=== PATIENT | female | born 1950 | race Caucasian/White ===

== ENCOUNTER 2023-11-15 06:04 | Inpatient (IN) ==
--- NOTE | 2023-11-08 11:39 | Anesthesiology Consultation ---
Date of Service November 08, 2023 Assessment & Plan Chart Review Chart Review: Acceptable Risk for Surgery and Patient NOT seen in Pre Admission Testing Consults Requested none History Surgery Operation Date: 11/15/23 10:35 Proposed Procedures p L3-S1 Decompression and Fusion - Jean-Pierre Mena DO Height/Weight Height: 5 ft 8 in Weight: 81.193 kg Allergies Allergy/AdvReac Type Severity Reaction Status Date / Time Iodinated Contrast Media Allergy Severe Rash Verified 10/26/23 12:15 codeine AdvReac Severe N/V Verified 10/26/23 12:16 tramadol AdvReac Intermediate n/v Verified 10/26/23 12:17 Medications Home Medications Medication Instructions Recorded Confirmed Last Taken acetazolamide 250 mg tablet 125 mg PO WK 10/26/23 10/26/23 Unknown albuterol sulfate 1.25 mg/3 mL 1.25 mg inhalation QID PRN sob 10/26/23 10/26/23 Unknown solution for nebulization albuterol sulfate 90 mcg/actuation 1 inh inhalation QID PRN sob 10/26/23 10/26/23 Unknown aerosol inhaler aspirin 81 mg capsule 81 mg PO QAM 10/26/23 10/26/23 Unknown bisoprolol fumarate 5 mg tablet 5 mg PO QAM 10/26/23 10/26/23 Unknown citalopram 20 mg tablet (Celexa) 20 mg PO QAM 10/26/23 10/26/23 Unknown estradiol 2 mg tablet 2 mg PO QAM 10/26/23 10/26/23 Unknown fenofibrate 160 mg tablet 160 mg PO QAM 10/26/23 10/26/23 Unknown fluticasone 250 mcg-salmeterol 50 1 inh inhalation BID PRN 10/26/23 10/26/23 Unknown mcg/dose blistr powdr for sob/wheezing inhalation (Advair Diskus) gabapentin 300 mg capsule 300 mg PO QAM 10/26/23 10/26/23 Unknown levothyroxine 75 mcg tablet 75 mcg PO QAM 10/26/23 10/26/23 Unknown (Synthroid) ondansetron HCl 8 mg tablet 8 mg PO Q12H PRN Nausea And 10/26/23 10/26/23 Unknown Vomiting potassium chloride 10 mEq 10 meq PO WK 10/26/23 10/26/23 Unknown tablet,extended release tramadol 50 mg tablet 50 mg PO DAILY PRN Severe Pain 10/26/23 10/26/23 Unknown (Scale Score 7-10) Past Medical History Medical History (Updated 10/26/23 @ 12:57 by Vinita Sullivan RN) Hx of motion sickness has used the scope patch to travel. History of postoperative nausea and vomiting History of cardiac arrhythmia follows with [facility] [place] Degenerative disc disease Chronic back pain Fatty liver Hypoglycemia "randomly" Depression Anxiety History of stroke 02/28/2002 -> no deficits. Seasonal allergies Asthma rarely uses, only uses when sick. Hypertriglyceridemia Hypertension Hypothyroidism History of lumbar puncture with blood patch and also surgical glue patches. 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 Past Family History Family History (Updated 10/26/23 @ 12:44 by Vinita Sullivan RN) Other No family history of adverse response to anesthesia Past Surgical History Surgical History H/O bilateral oophorectomy S/P DANIELLE (total abdominal hysterectomy) S/P left knee arthroscopy H/O lumbar discectomy History of colonoscopy History of appendectomy History of cataract surgery bilateral History of cardiac cath remote history (early ) - no stents Social History Smoking Status: Former smoker Do You Dip or Chew Tobacco: No Smoking End Date: at age 27 Hx Alcohol Use: Yes Alcohol type: wine and hard liquor alcohol intake frequency: holidays/special occasions only Hx Substance Use: No substance use type: does not use Testing Electrocardiogram Findings: + NSR @
[2023-11-15] MEDS ORDERED: GLYCOPYRROLATE 0.2 MG/ML VIAL ONE (06:55)
[2023-11-15] MEDS ORDERED: fentaNYL citrate PF 100 MCG/2 ML VIAL ONE ×2 (06:55→08:17)
[2023-11-15] MEDS ORDERED: LIDOCAINE 2% 2 ML VIAL/AMP(20MG/ML) INFIL ONE (06:55)
[2023-11-15] MEDS ORDERED: ROCURONIUM BROMIDE 10 MG/ML 5 ML VIAL IV ONE (06:55)
[2023-11-15] MEDS ORDERED: ONDANSETRON INJ 2 MG/ML 2 ML VIAL ONE (06:55)
[2023-11-15] MEDS ORDERED: PROPOFOL IV EMULSION 10 MG/ML 20 ML VIAL IV ONE (06:55)
[2023-11-15] MEDS ORDERED: DEXAMETHASONE SOD INJ 4 MG/ML VIAL ONE (06:55)
[2023-11-15] MEDS ORDERED: MIDAZOLAM HCL 1 MG/ML 2ML VIAL ONE (06:55)
[2023-11-15] MEDS ORDERED: SUGAMMADEX SODIUM 200 MG/2 ML VIAL IV ONE (06:59)
[2023-11-15] MEDS: LR 15ML/HR IV SCH (07:02)
[2023-11-15] MEDS: ACETAMINOPHEN 500 MG TAB PO SCH (07:02)
[2023-11-15] MEDS: CeleBREX 200 MG CAP PO SCH (07:02)
[2023-11-15] MEDS: GABAPENTIN 300 MG CAP PO SCH (07:02)
[2023-11-15] MEDS: LR 60ML/HR IV SCH (07:03)
[2023-11-15] MEDS ORDERED: ONDANSETRON INJ 2 MG/ML 2 ML VIAL IV PRN (07:20)
[2023-11-15] MEDS ORDERED: ePHEDrine sulfate 50 MG/ML AMP IV PRN (07:20)
[2023-11-15] MEDS ORDERED: ATROPINE SULFATE 0.1 MG/ML 10ML SYR IV PRN (07:20)
--- NOTE | 2023-11-15 07:36 | History & Physical Bridge Note ---
Date of Service November 15, 2023 History & Physical Bridge Note I have examined the patient, reviewed the History & Physical and in the interval since the performance of the History & Physical I have noted the following changes of clinical significance: no changes noted
--- NOTE | 2023-11-15 07:37 | History & Physical Report ---
Date of Service November 15, 2023 Assessment & Plan (1) Neurogenic claudication due to lumbar spinal stenosis: Plan: L3-S1 decompression and fusion History of Present Illness Chief Complaint: Back and bilateral leg pain Primary Care Provider: Devi Henry MD This is a 73-year-old female who presents chronic persistent back and bilaterally pain after failing since course of nonoperative care is here for surgical invention. Allergies Allergy/AdvReac Type Severity Reaction Status Date / Time Iodinated Contrast Media Allergy Severe Rash Verified 11/15/23 06:54 codeine AdvReac Severe N/V Verified 11/15/23 06:54 tramadol AdvReac Intermediate n/v Verified 11/15/23 06:54 Home Medications Medication Instructions Recorded Confirmed Type acetazolamide 250 mg tablet 125 mg PO WK 10/26/23 11/15/23 History albuterol sulfate 1.25 mg/3 mL 1.25 mg inhalation QID PRN sob 10/26/23 11/15/23 History solution for nebulization albuterol sulfate 90 mcg/actuation 1 inh inhalation QID PRN sob 10/26/23 11/15/23 History aerosol inhaler aspirin 81 mg capsule 81 mg PO QAM 10/26/23 11/15/23 History bisoprolol fumarate 5 mg tablet 5 mg PO QAM 10/26/23 10/26/23 History citalopram 20 mg tablet (Celexa) 20 mg PO QAM 10/26/23 10/26/23 History estradiol 2 mg tablet 2 mg PO QAM 10/26/23 11/15/23 History fenofibrate 160 mg tablet 160 mg PO QAM 10/26/23 11/15/23 History fluticasone 250 mcg-salmeterol 50 1 inh inhalation BID PRN 10/26/23 11/15/23 History mcg/dose blistr powdr for sob/wheezing inhalation (Advair Diskus) gabapentin 300 mg capsule 300 mg PO QAM 10/26/23 11/15/23 History levothyroxine 75 mcg tablet 75 mcg PO QAM 10/26/23 11/15/23 History (Synthroid) ondansetron HCl 8 mg tablet 8 mg PO Q12H PRN Nausea And 10/26/23 11/15/23 History Vomiting potassium chloride 10 mEq 10 meq PO WK 05/08/24 05/28/24 History tablet,extended release tramadol 50 mg tablet 50 mg PO DAILY PRN Severe Pain 10/26/23 11/15/23 History (Scale Score 7-10) Past Med/Surg History Problem List (Updated 11/15/23 @ 07:37 by Jean-Pierre Mena DO) Neurogenic claudication due to lumbar spinal stenosis Medical History (Updated 11/15/23 @ 07:37 by Jean-Pierre Mena DO) Hx of motion sickness has used the scope patch to travel. History of postoperative nausea and vomiting History of cardiac arrhythmia follows with [facility] [place] Degenerative disc disease Chronic back pain Fatty liver Hypoglycemia "randomly" Depression Anxiety History of stroke 02/28/2002 -> no deficits. Seasonal allergies Asthma rarely uses, only uses when sick. Hypertriglyceridemia Hypertension Hypothyroidism History of lumbar puncture with blood patch and also surgical glue patches. 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 Surgical History H/O bilateral oophorectomy S/P DANIELLE (total abdominal hysterectomy) S/P left knee arthroscopy H/O lumbar discectomy History of colonoscopy History of appendectomy History of cataract surgery bilateral History of cardiac cath remote history (early ) - no stents Family History (Updated 10/26/23 @ 12:44 by Vinita Sullivan RN) Other No family history of adverse response to anesthesia Social History Smoking Status: Former smoker Tobacco Type: Cigarettes Smoking End Date: at age 27; Second Hand Exposure: No; Do You Dip or Chew Tobacco: No; Tobacco Cessation Education Requested by Patient: No Hx Alcohol Use: Yes Alcohol type: wine and hard liquor Hx Substance Use: No Preferred Language: Peruvian Communication Ability: Effective Senior It Project Manager Required: No Beliefs That Will Affect Care: None Current Living Situation: Spouse Other Information That Helps Us Care for You: No Feels Safe at Home: Yes Safety Concerns: Feels Safe At This Time Assistive Devices: Denture - Upper, Denture - Lower, Nebulizer and Walker Physical Exam Physical Exam: Patient is alert and oriented heart regular rhythm Lungs clear Results & Data Results & Data Vital Signs (Past 12 Hours) Vital Signs Temp Pulse Resp BP Pulse Ox O2 Del Method 11/15/23 06:45 36.3 C L 66 18 119/70 95 Room Air
[2023-11-15] MEDS: ceFAZolin 2000MG 2,000 MG/15 ML SYR IV SCH ×2 (07:45→17:28)
[2023-11-15] MEDS: BUPIVACAINE/EPINEPHRINE 0.25% 1:200,000 30 ML VIAL ONE (08:29)
[2023-11-15] MEDS ORDERED: PHENYLEPHRINE 100MCG/ML 10ML SYR IV ONE (08:42)
[2023-11-15] MEDS: ceFAZolin 330 MG/ML 1 GM VIAL ONE (10:06)
--- NOTE | 2023-11-15 10:16 | Operative Report ---
Post Operative Report Pre & Post Diagnosis Operation Date: 11/15/23 07:45 Pre-Op Diagnosis: Neurogenic claudication due to lumbar spinal stenosis Post-Op Diagnosis: Neurogenic claudication due to lumbar spinal stenosis I identified the patient and participated in the time-out.: Yes Procedure Operation Date: 11/15/23 07:45 Actual Procedures #1 revision decompression with bilateral medial facetectomies and foraminotomies L3-L4, L4-5 and L5-S1. #2 posterior spinal fusion L3-S1. #3 placed posterior segmental instrumentation L3-S1. #4 interbody fusion L3-L4, L4-L5 and L5-S1. #5 placement of Spira 11 x 26 mm at L3-L4, 9 x 26 mm at L4-L5 and 12 x 26 mm x 2 at L5-S1. #6 placement locally harvested morselized autograft posterior gutters. #7 placement infuse collagen sponge, with Koros bone graft in the posterior lateral gutters and Morpheus bone graft interbody spaces. Surgeon Jean-Pierre Mena, DO Parimutuel Ticket Seller Malissa Antonio Estimated Blood Loss 300 Findings Consistent with Post-Op Diagnosis Specimens None Indications This is a 73-year-old female presents problems diagnosis of failed course of nonoperative care is here for surgical invention. Description of Procedure Patient was met with identified informed consent obtained. Patient was then taken to the operative suite underwent patient placed in prone position on the Pasha table on top of the Layton frame. All bony prominences well-padded eyes inspected to ensure no external precipice spinal. This point lumbar spine was prepped and draped in a sterile fashion. Sharp dissection with the assistance of Bovie cautery is performed down to and exposing the remaining lamina transverse processes of L3 L4-5 and the sacral ala bilaterally. From caudal cephalad fashion revision complete laminectomy of L5 was performed including bilateral medial facetectomies and foraminotomies. Then a revision complete laminectomy of L4 including bilateral male facetectomies and foraminotomies performed and lastly complete laminectomy of L3 including bilateral medial facetectomies and foraminotomies addressing severe spinal stenosis was performed. Pedicle screws were then placed at L3 L4-5 and S1 levels bilaterally with assistance of fluoroscopy in the process richard placed. By way of a transforaminal approach on the right and discectomy of L5-S1 was performed endplates guarded to subcortical bleeding bone and a 12 x 26 mm spiral cage filled with Morpheus bone graft tapped in position. Then proceeded to the left transforaminal region at L5-S1 again discectomy performed endplates guarded to subcortical bleeding bone and a second 12 x 26 mm spiral cage filled with Morpheus bone graft tapped in position. Then proceeded L4-L5 by way of transforaminal approach on the right a complete discectomy performed endplates guided to subcortical bleeding bone and a 9 x 26 mm spiral cage filled with Morpheus bone graft tapped in position. Lastly approached L3-L4. By way of transforaminal approach and right complete discectomy performed endplates guided to subcortical bleeding bone and 11 x 26 mm spiral cage filled with Morpheus bone graft tapped in position. The rods were then compressed locked into final position bilaterally. The transverse processes of L3 L4-5 and sacral ala burred to subcortical bleeding bone. Infuse collagen sponge, with Koros and local autograft placed in posterior gutters. 15 round DARRYL inserted. The incision was then closed with 1 Vicryl to fascia 2-0 Vicryl subcutaneously and 4 Monocryl for final skin closure. Steri-Strips are dressing placed. Patient awakened taken to PACU stable condition. Please note spinal cord monitoring was utilized at the procedure no changes noted. Lastly Malissa Antonio was present at the entire procedure and all the patient positioning complex portion of the surgery and final skin closure. I attest to the content of the Intraoperative Record and any orders documented therein. Any exceptions are noted below.
[2023-11-15] MEDS ORDERED: DROPERIDOL 5 MG/2 ML VIAL ONE (10:35)
--- NOTE | 2023-11-15 10:39 | Fluoroscopy Report ---
INTRAOPERATIVE RADIOGRAPHS CLINICAL HISTORY: L3-S1 spinal fusion. Fluoro time: 35 seconds Ka,r: 29.88 mGy FINDINGS: 3 spot fluoroscopic views of the lumbar spine are presented. There has been discectomy at L 3-L4, L4-L5, and L5-S1 with laminectomy and posterior fusion at L3-S1. Interpedicular screws are pres ent at all levels. The orthopedic hardware appears intact. IMPRESSION: Intraoperative images from lumbar spinal fusion surgery as above. Electronically signed by: Jaycob Wright M.D. 11/15/2023 10:37 AM
[2023-11-15] MEDS: fentaNYL citrate PF 100 MCG/2 ML VIAL IV PRN (10:50)
[2023-11-15] MEDS ORDERED: hydrOXYzine HCl 25 MG TAB PO PRN (11:44)
[2023-11-15] MEDS ORDERED: ALUMINUM/MAGNESIUM SUSP 30 ML UDC PO PRN (11:44)
[2023-11-15] MEDS ORDERED: SOD PHOSPHATE/SOD BIPHOSPHATE ENEMA 132 ML BTL PR PRN (11:44)
[2023-11-15] MEDS ORDERED: ONDANSETRON 4 MG OD TAB PO PRN (11:44)
[2023-11-15] MEDS ORDERED: ACETAMINOPHEN 1,000 MG/100 ML VIAL IV PRN (11:44)
[2023-11-15] MEDS ORDERED: DO NOT ADMINISTER PNEUMOCOCCAL VACCINE PRN (11:44)
[2023-11-15] MEDS ORDERED: PROMETHAZINE HCL 12.5 MG in SODIUM CHLORIDE 0.9% 50 ML IV PRN (11:44)
[2023-11-15] MEDS ORDERED: ALBUTEROL HFA 8 GM INHALER INH PRN (11:44)
[2023-11-15] MEDS ORDERED: DO NOT ADMINISTER FLU VACCINE PRN (11:44)
[2023-11-15] MEDS ORDERED: LORazepam 0.5 MG in SYRINGE 0.25 ML IV PRN (11:44)
[2023-11-15] MEDS ORDERED: METOCLOPRAMIDE HCL INJ 5 MG/ML 2 ML VIAL IV PRN (11:44)
[2023-11-15] MEDS ORDERED: diphenhydrAMINE Capsule 25 MG CAP PO PRN (11:44)
[2023-11-15] MEDS ORDERED: NALOXONE HCL 0.4 MG/1 ML VIAL/CARP IV PRN (11:44)
[2023-11-15] MEDS ORDERED: bisacodyL 10 MG SUPP PR PRN (11:44)
[2023-11-15] MEDS ORDERED: FAMOTIDINE 20 MG TAB PO PRN (11:44)
--- NOTE | 2023-11-15 11:44 | Anesthesiology Progress Note ---
Date of Service November 15, 2023 Anesthesia Post Procedure Vital Signs Vital Signs: Temp Pulse Pulse Resp BP Pulse Ox O2 Del Method 11/15/23 11:20 66 14 115/63 93 Oxymask 11/15/23 11:10 36.6 C 72 12 123/54 L 94 Oxymask 11/15/23 11:00 72 17 117/76 92 Oxymask 11/15/23 10:50 74 15 125/70 96 Oxymask 11/15/23 10:40 67 19 102/51 L 94 Oxymask 11/15/23 10:31 36.0 C L 60 12 100/56 L 95 Oxymask 11/15/23 06:45 36.3 C L 66 18 119/70 95 Room Air O2 Flow Rate 11/15/23 11:20 2 11/15/23 11:10 2 11/15/23 11:00 2 11/15/23 10:50 8 11/15/23 10:40 8 11/15/23 10:31 8 11/15/23 06:45 Pain Intensity Right Buttock: Pain Intensity: 4 Transfer of Care Handoff Completed per policy Notes Mental Status: alert / awake / arousable and participated in evaluation Patient Amnestic to Procedure: Yes Nausea / Vomiting: adequately controlled Pain: adequately controlled Airway Patency, RR, SpO2: stable & adequate BP & HR: stable & adequate Hydration State: stable & adequate Anesthetic Complications: no major complications apparent and Pt Satisfied with anesthetic care
[2023-11-15] MEDS ORDERED: ALBUTEROL 0.083% NEBU SOLN 3 ML VIAL INH PRN (11:51)
[2023-11-15] MEDS ORDERED: FLUTICASONE/VILANTEROL 200/25MCG 14 PUFFS/INHALER INH PRN (12:09)
[2023-11-15] MEDS: HYDROmorphone INJ 0.5 MG/0.5 ML SYR IV PRN (12:23)
[2023-11-15] MEDS: SODIUM CHLORIDE 0.9% 1,000 ML IV SCH (12:58)
[2023-11-15] MEDS: FLOSEAL HEMOSTATIC MATRIX 10ML TOP ONE (14:09)
--- NOTE | 2023-11-15 15:35 | Consultation ---
Date of Consultation November 15, 2023 Assessment & Plan (1) Neurogenic claudication due to lumbar spinal stenosis: (2) History of stroke: (3) Hypertension: (4) Hypothyroidism: (5) Depression: Plan Ms. Vick is a 73 year old female that underwent an elective L3-S1 decompression and fusion surgery under the care of Dr. Mena after failed conservative treatment for back pain as an outpatient. Additional PMH includes: H/O CVA, fatty liver disease, HTN, hypothyroidism, and depression. Additionally patient has diagnosis of spontaneous CFS leaking diagnosed 2012. She has reportedly had 13 leaks that has received blood patch. She takes Diamox and potassium for this. Postoperatively she is slightly hypotensive SBP 96/59, asymptomatic. She does have IV fluids infusing. She does seem to become hypotensive after she receives pain medication. Preop labs from 11/07/2023 indicated baseline hemoglobin 13.2. Pt denies SOTELO, visual or auditory changes, N/V/D, abdominal pain or tenderness, chest pain, palpitations, dysuria, Recent falls or trauma. She is AAO x 4 and able to follow all commands. She denies any neuropathy or numbness tingling in lower extremities. She is able to wiggle both of her lower extremity. She has not passed flatulence as of yet. Neurogenic claudication due to lumbar spinal stenosis: POD#0 s/p L3-S1 decompression and fusion surgery under the care of Dr. Mena. Per ortho for pain control, wound care, anticoagulation and activities. 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 Hold per protocol BP soft post op: 96/59; appears to be low after pain medication administration Hypothyroidism: Chronic Takes levothyroxine;continue Depression: Chronic Takes Celexa;continue Disposition: PCP: Fernando Buckner Code Status: Full code VTE Prophylaxis: Teds and SCDs for now per admitting team I spent a total of 62 minutes coordinating, documenting, and providing care for this patient excluding time spent in the performance of separately billed services. All of the aforementioned completed while collaborating with the assigned attending physician for a full treatment plan. Please see their addendum for further details. Supervising Physician Co-Signing Physician Notes Pt was seen and examined by myself, Brynn Stephens MD on the day of service. Care was coordinated with HIEN Olea. 73yo seen postop after lumbar decompression and fusion surgery. Medical Hx significant for spontaneous CSF leaks, notes this has not happened for many years. BP hypotensive, pt asymptomatic. in no acute distress on exam, RRR Continue to monitor post op hgb. Otherwise as above. I spent a total [id number] coordinating, documenting, and providing care for this patient excluding time spent in the performance of separately billed services History of Present Illness Requesting Physician: Dr. Mena Reason for Consultation: post operative medical management Attending Physician: Jean-Pierre Mena DO History of Present Illness Ms. Vick is a 73 year old female that underwent an elective L3-S1 decompression and fusion surgery under the care of Dr. Mena after failed conservative treatment for back pain as an outpatient. Additional PMH includes: H/O CVA, fatty liver disease, HTN, hypothyroidism, and depression. Additionally patient has diagnosis of spontaneous CFS leaking diagnosed 2012. She has reportedly had 13 leaks that has received blood patch. She takes Diamox and potassium for this. Postoperatively she is slightly hypotensive SBP 96/59, asymptomatic. She does have IV fluids infusing. She does seem to become hypotensive after she receives pain medication. Preop labs from 11/07/2023 indicated baseline hemoglobin 13.2. Pt denies SOTELO, visual or auditory changes, N/V/D, abdominal pain or tenderness, chest pain, palpitations, dysuria, Recent falls or trauma. She is AAO x 4 and able to follow all commands. She denies any neuropathy or numbness tingling in lower extremities. She is able to wiggle both of her lower extremity. She has not passed flatulence as of yet. [facility] Hospitalist service was consulted for postoperative medical management. We are available 10/01 for any concerns or questions; please reach us on [place] Text. Allergies Allergy/AdvReac Type Severity Reaction Status Date / Time Iodinated Contrast Media Allergy Severe Rash Verified 11/15/23 06:54 codeine AdvReac Severe N/V Verified 11/15/23 06:54 tramadol AdvReac Intermediate n/v Verified 11/15/23 06:54 Home Medications Medication Instructions Recorded Confirmed Type acetazolamide 250 mg tablet 125 mg PO WK 10/26/23 11/15/23 History albuterol sulfate 1.25 mg/3 mL 1.25 mg inhalation QID PRN sob 10/26/23 11/15/23 History solution for nebulization albuterol sulfate 90 mcg/actuation 1 inh inhalation QID PRN sob 10/26/23 11/15/23 History aerosol inhaler aspirin 81 mg capsule 81 mg PO QAM 10/26/23 11/15/23 History bisoprolol fumarate 5 mg tablet 5 mg PO QAM 10/26/23 10/26/23 History citalopram 20 mg tablet (Celexa) 20 mg PO QAM 10/26/23 10/26/23 History estradiol 2 mg tablet 2 mg PO QAM 10/26/23 11/15/23 History fenofibrate 160 mg tablet 160 mg PO QAM 10/26/23 11/15/23 History fluticasone 250 mcg-salmeterol 50 1 inh inhalation BID PRN 10/26/23 11/15/23 History mcg/dose blistr powdr for sob/wheezing inhalation (Advair Diskus) gabapentin 300 mg capsule 300 mg PO QAM 10/26/23 11/15/23 History levothyroxine 75 mcg tablet 75 mcg PO QAM 10/26/23 11/15/23 History (Synthroid) ondansetron HCl 8 mg tablet 8 mg PO Q12H PRN Nausea And 10/26/23 11/15/23 History Vomiting potassium chloride 10 mEq 10 meq PO WK 10/26/23 11/15/23 History tablet,extended release tramadol 50 mg tablet 50 mg PO DAILY PRN Severe Pain 10/26/23 11/15/23 History (Scale Score 7-10) Patient History Medical History Hx of motion sickness has used the scope patch to travel. History of postoperative nausea and vomiting History of cardiac arrhythmia follows with [facility] [place] Degenerative disc disease Chronic back pain Fatty liver Hypoglycemia "randomly" Depression Anxiety History of stroke 02/28/2002 -> no deficits. Seasonal allergies Asthma rarely uses, only uses when sick. Hypertriglyceridemia Hypertension Hypothyroidism History of lumbar puncture with blood patch and also surgical glue patches. Spontaneous cerebrospinal fluid leak from spine dx 2013 - treated at [facility] in [place] "treats me like a stroke when it happens" no problems since the blood patch/ leaks have been patched with surgical glue. Surgical History H/O bilateral oophorectomy S/P DANIELLE (total abdominal hysterectomy) S/P left knee arthroscopy H/O lumbar discectomy History of colonoscopy History of appendectomy History of cataract surgery bilateral History of cardiac cath remote history (early ) - no stents Family History Other No family history of adverse response to anesthesia Social History Smoking Status: Former smoker Tobacco Type: Cigarettes Smoking End Date: at age 27; Second Hand Exposure: No; Do You Dip or Chew Tobacco: No; Tobacco Cessation Education Requested by Patient: No Hx Alcohol Use: Yes Alcohol type: wine and hard liquor Hx Substance Use: No Preferred Language: Venezuelan Communication Ability: Effective Chief Resource Officer Required: No Beliefs That Will Affect Care: None Current Living Situation: Spouse Other Information That Helps Us Care for You: No Feels Safe at Home: Yes Safety Concerns: Feels Safe At This Time Assistive Devices: Denture - Upper, Denture - Lower, Nebulizer and Walker Review of Systems Review of Systems: Neuro: (-) Falls, trauma, slurred speech HEENT: (-) SOTELO, dizziness, dysphagia, visual or auditory changes CV: (-) CP, palpitations, swelling Resp: (-) SOB GI: (-) appetite changes, N/V/D, bowel changes : (-) urinary changes Skin: (-) rashes Psych: (-) anxiety, depression Physical Exam Physical Exam: Neuro: AAOx4, PERRLA, no aphagia, memory changes, CNII-XII grossly intact HEENT: head normocephalic, moist mucus membranes CV: S1/S2, (-) M/G/R, (-) edema, cap refill < 3 seconds Resp: Lungs CTA in all monteiro. On RA GI: Abdomen S/NT/ND, Ax4 bowel sounds, (-) CVA tenderness Musculoskeletal: 5/5 B/L UE strength, 5/5 B/L LE strength. No gait disturbance Skin: (-) rashes , (-) erythema. Psych: euthymic mood Results & Data Vital Signs (Past 12 Hours) Vital Signs Temp Pulse Pulse Resp BP BP Pulse Ox 11/15/23 14:18 36.4 C L 72 16 96/59 L 93 11/15/23 13:30 36.3 C L 73 16 94/60 L 93 11/15/23 12:37 36.5 C 73 16 94/58 L 93 11/15/23 12:02 11/15/23 12:00 36.3 C L 71 16 112/71 94 11/15/23 11:30 36.5 C 69 16 102/67 94 11/15/23 11:20 66 14 115/63 93 11/15/23 11:10 36.6 C 72 12 123/54 L 94 11/15/23 11:00 72 17 117/76 92 11/15/23 10:50 74 15 125/70 96 11/15/23 10:40 67 19 102/51 L 94 11/15/23 10:31 36.0 C L 60 12 100/56 L 95 11/15/23 06:45 36.3 C L 66 18 119/70 95 O2 Del Method O2 Flow Rate 11/15/23 14:18 Nasal Cannula 2 11/15/23 13:30 Nasal Cannula 2.0 11/15/23 12:37 Nasal Cannula 2.0 11/15/23 12:02 Nasal Cannula 2 11/15/23 12:00 Nasal Cannula 2.0 11/15/23 11:30 Nasal Cannula 2.0 11/15/23 11:20 Oxymask 2 11/15/23 11:10 Oxymask 2 11/15/23 11:00 Oxymask 2 11/15/23 10:50 Oxymask 8 11/15/23 10:40 Oxymask 8 11/15/23 10:31 Oxymask 8 11/15/23 06:45 Room Air Diagnostic Findings Lumbar Spine X-Ray 11/15/23 07:00 INTRAOPERATIVE RADIOGRAPHS CLINICAL HISTORY: L3-S1 spinal fusion. Fluoro time: 35 seconds Ka,r: 29.88 mGy FINDINGS: 3 spot fluoroscopic views of the lumbar spine are presented. There has been discectomy at L3-L4, L4-L5, and L5-S1 with laminectomy and posterior fusion at L3-S1. Interpedicular screws are present at all levels. The orthopedic hardware appears intact. IMPRESSION: Intraoperative images from lumbar spinal fusion surgery as above. Electronically signed by: Jaycob Wright M.D. 11/15/2023 10:37 AM
[2023-11-15 20:18] LABS: Hematocrit (blood only) 33.5 % (37.0-47.0); Hemoglobin 10.8 g/dl (12.0-16.0); Mean Corpuscular Hgb Conc 32.2 g/dL (32.0-36.0); Mean Corpuscular Volume 99.4 fL (80.0-100.0); Mean Platelet Volume 10.7 fL (9.4-12.4); Platelet Count 267 K/uL (130-400); RDW Coefficient of Variation 12.6 % (11.5-14.5); RDW Standard Deviation 45.9 fL (36.4-46.3); Red Blood Count 3.37 M/uL (4.20-5.40); White Blood Count 14.81 K/ul (4.8-10.8)
[2023-11-15] MEDS: DOCUSATE SODIUM/SENNA 50/8.6MG TAB PO SCH (21:08)
[2023-11-15] MEDS: ACETAMINOPHEN 500 MG TAB PO PRN (21:12)
[2023-11-16] MEDS: KETOROLAC TROMETHAMINE 15 MG/ML VIAL IV ONE (01:41)
[2023-11-16] MEDS: POLYETHYLENE (MIRALAX) 17 GM PACK PO SCH (06:01)
[2023-11-16 06:28] LABS: Basophils # (auto) 0.02 K/uL (0.00-0.20); Basophils % (auto) 0.1 %; Hematocrit (blood only) 31.7 % (37.0-47.0); Hemoglobin 10.3 g/dl (12.0-16.0); Immature Granulocytes # (auto) 0.09 K/uL (0.01-0.20); Immature Granulocytes % (auto) 0.6 %; Lymphocytes # (auto) 3.33 K/uL (1.20-3.40); Lymphocytes % (auto) 21.1 %; Mean Corpuscular Hemoglobin 32.6 pg (25.0-34.0); Mean Corpuscular Hgb Conc 32.5 g/dL (32.0-36.0); Mean Corpuscular Volume 100.3 fL (80.0-100.0); Mean Platelet Volume 10.8 fL (9.4-12.4); Monocytes # (auto) 1.66 K/uL (0.11-0.59); Monocytes % (auto) 10.5 %; Neutrophils # (auto) 10.65 K/uL (1.40-6.50); Neutrophils % (auto) 67.7 %; Platelet Count 263 K/uL (130-400); RDW Coefficient of Variation 12.5 % (11.5-14.5); RDW Standard Deviation 46.1 fL (36.4-46.3); Red Blood Count 3.16 M/uL (4.20-5.40); White Blood Count 15.75 K/ul (4.8-10.8)
[2023-11-16 06:41] LABS: BUN Creatinine Ratio 15.1 (10-20); Calcium 8.3 mg/dl (8.6-10.3); Creatinine Clr Calc Pharmacy 47.8 ml/min; Est GFR (African American) 53.2 ml/min; Est GFR (Non-African American) 45.9 ml/min; Potassium 4.4 mmol/L (3.5-5.1)
[2023-11-16] MEDS: CITALOPRAM 20 MG TAB PO SCH (08:02)
[2023-11-16] MEDS: LEVOTHYROXINE SODIUM 75 MCG TABLET PO SCH (08:02)
[2023-11-16] MEDS: GABAPENTIN 300 MG CAP PO SCH (08:03)
[2023-11-16] MEDS: ASPIRIN 81 MG ECTAB PO SCH (08:03)
[2023-11-16] MEDS: estradioL 1 MG TAB PO SCH (08:03)
[2023-11-16] MEDS: FENOFIBRATE NANOCRYSTALLIZED 145 MG TABLET PO SCH (08:04)
[2023-11-16] MEDS: dexAMETHasone 6 MG in SYRINGE 0 ML IV SCH (08:05)
[2023-11-16] MEDS: BISOPROLOL FUMARATE 5 MG TAB PO SCH (08:06)
--- NOTE | 2023-11-16 09:53 | Orthopedic Progress Note ---
Date of Service November 16, 2023 Assessment & Plan (1) Neurogenic claudication due to lumbar spinal stenosis: Plan: This time we will continue physical therapy monitor DARRYL operatively discharged home in the next few days. Admission and Anticipated Discharge Date Admission Date: November 15, 2023 Subjective Back pain controlled leg pain markedly improved Physical Exam Physical Exam: Patient is up and ambulating halls. She is comfortable. Is present to testing. Results & Data Vital Signs (Past 12 Hours) Vital Signs Temp Pulse Resp BP BP Pulse Ox O2 Del Method 11/16/23 09:44 98/59 L 11/16/23 07:20 36.6 C 73 16 94/51 L 93 Room Air 11/16/23 03:30 36.4 C L 73 18 95/55 L 93 Room Air 11/15/23 23:45 36.5 C 78 18 98/52 L 94 Room Air
[2023-11-16] MEDS: oxyCODONE HCL IR 5 MG TAB (IMMEDIATE RELEASE) PO PRN (10:57)
--- NOTE | 2023-11-16 19:04 | Hospitalist Progress Note ---
Date of Service November 16, 2023 Assessment & Plan (1) Neurogenic claudication due to lumbar spinal stenosis: (2) History of stroke: (3) Hypertension: (4) Hypothyroidism: (5) Depression: Plan Ms. Vick is a 73 year old female that underwent an elective L3-S1 decompression and fusion surgery under the care of Dr. Mena after failed conservative treatment for back pain as an outpatient. Additional PMH includes: H/O CVA, fatty liver disease, HTN, hypothyroidism, and depression. Additionally patient has diagnosis of spontaneous CFS leaking diagnosed 2012. She has reportedly had 13 leaks that has received blood patch. She takes Diamox and potassium for this. Postoperatively she is slightly hypotensive SBP 96/59, asymptomatic. She does have IV fluids infusing. She does seem to become hypotensive after she receives pain medication. Preop labs from 11/07/2023 indicated baseline hemoglobin 13.2. Pt denies SOTELO, visual or auditory changes, N/V/D, abdominal pain or tenderness, chest pain, palpitations, dysuria, Recent falls or trauma. She is AAO x 4 and ab le to follow all commands. She denies any neuropathy or numbness tingling in lower extremities. She is able to wiggle both of her lower extremity. She has not passed flatulence as of yet. Neurogenic claudication due to lumbar spinal stenosis: POD#1 s/p L3-S1 decompression and fusion surgery under the care of Dr. Mena. Per ortho for pain control, wound care, anticoagulation and activities. 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 Hold per protocol BP soft post op: 96/59; appears to be low after pain medication administration Hypothyroidism: Chronic Takes levothyroxine;continue Depression: Chronic Takes Celexa;continue Disposition: PCP: Fernando Buckner Code Status: Full code VTE Prophylaxis: Teds and SCDs for now per admitting team Admission and Anticipated Discharge Date Admission Date: November 15, 2023 Subjective Back pain controlled rt leg pain markedly improved. eating ok, no bm. Physical Exam Physical Exam: Neuro: AAOx4, PERRLA, no aphagia, memory changes, CNII-XII grossly intact HEENT: head normocephalic, moist mucus membranes CV: S1/S2, (-) M/G/R, (-) edema, cap refill < 3 seconds Resp: Lungs CTA in all monteiro. On RA GI: Abdomen S/NT/ND, Ax4 bowel sounds, (-) CVA tenderness Musculoskeletal: 5/5 B/L UE strength, 5/5 B/L LE strength. No gait disturbance Skin: (-) rashes , (-) erythema. Psych: euthymic mood Low back with clean dressing without soakage. DARRYL drain with moderate serosanguineous collection noted. Results & Data Results & Data Vital Signs (Past 12 Hours) Vital Signs Temp Pulse Resp BP BP Pulse Ox O2 Del Method 11/16/23 15:05 36.8 C 71 16 95/58 L 93 Room Air 11/16/23 09:44 98/59 L 11/16/23 07:20 36.6 C 73 16 94/51 L 93 Room Air
[2023-11-17 06:53] LABS: Hematocrit (blood only) 29.8 % (37.0-47.0); Hemoglobin 9.7 g/dl (12.0-16.0); Mean Corpuscular Hemoglobin 32.1 pg (25.0-34.0); Mean Corpuscular Hgb Conc 32.6 g/dL (32.0-36.0); Mean Corpuscular Volume 98.7 fL (80.0-100.0); Mean Platelet Volume 10.8 fL (9.4-12.4); Platelet Count 244 K/uL (130-400); RDW Coefficient of Variation 13.1 % (11.5-14.5); RDW Standard Deviation 46.9 fL (36.4-46.3); Red Blood Count 3.02 M/uL (4.20-5.40); White Blood Count 13.57 K/ul (4.8-10.8)
--- NOTE | 2023-11-17 10:07 | Orthopedic Progress Note ---
Date of Service November 17, 2023 Assessment & Plan (1) Neurogenic claudication due to lumbar spinal stenosis: Plan: At this time we will continue physical therapy monitor DARRYL output anticipate discharge to home versus rehab in the next day or so. Admission and Anticipated Discharge Date Admission Date: November 15, 2023 Subjective Back pain is controlled leg symptoms improved. Struggling with some nausea this morning. Physical Exam Physical Exam: Patient is currently bed. She does appear comfortable. She is constricted testing. Results & Data Vital Signs (Past 12 Hours) Vital Signs Temp Pulse Resp BP Pulse Ox O2 Del Method 11/17/23 07:27 36.7 C 72 16 108/64 93 Room Air
--- NOTE | 2023-11-17 15:02 | Hospitalist Progress Note ---
Date of Service November 17, 2023 Assessment & Plan (1) Neurogenic claudication due to lumbar spinal stenosis: (2) History of stroke: (3) Hypertension: (4) Hypothyroidism: (5) Depression: Plan Ms. Vick is a 73 year old female that underwent an elective L3-S1 decompression and fusion surgery under the care of Dr. Mena after failed conservative treatment for back pain as an outpatient. Additional PMH includes: H/O CVA, fatty liver disease, HTN, hypothyroidism, and depression. Additionally patient has diagnosis of spontaneous CFS leaking diagnosed 2012. She has reportedly had 13 leaks that has received blood patch. She takes Diamox and potassium for this. Postoperatively she is slightly hypotensive SBP 96/59, asymptomatic. She does have IV fluids infusing. She does seem to become hypotensive after she receives pain medication. Preop labs from 11/07/2023 indicated baseline hemoglobin 13.2. Pt denies SOTELO, visual or auditory changes, N/V/D, abdominal pain or tenderness, chest pain, palpitations, dysuria, Recent falls or trauma. She is AAO x 4 and ab le to follow all commands. She denies any neuropathy or numbness tingling in lower extremities. She is able to wiggle both of her lower extremity. She has not passed flatulence as of yet. Neurogenic claudication due to lumbar spinal stenosis: POD#2 s/p L3-S1 decompression and fusion surgery under the care of Dr. Mena. Per ortho for pain control, wound care, anticoagulation and activities. 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 Hold per protocol BP soft post op: 96/59; appears to be low after pain medication administration Hypothyroidism: Chronic Takes levothyroxine;continue Depression: Chronic Takes Celexa;continue Disposition: PCP: Fernando Buckner Code Status: Full code VTE Prophylaxis: Teds and SCDs for now per admitting team Admission and Anticipated Discharge Date Admission Date: November 15, 2023 Subjective Back pain controlled rt leg pain markedly improved. eating ok, no bm. MOving gas. Hypotensive overnight, likely from anesthesia, should improve as anestheisa wears off. no fever. reports improving dizziness. Physical Exam Physical Exam: Neuro: AAOx4, PERRLA, no aphagia, memory changes, CNII-XII grossly intact HEENT: head normocephalic, moist mucus membranes CV: S1/S2, (-) M/G/R, (-) edema, cap refill < 3 seconds Resp: Lungs CTA in all monteiro. On RA GI: Abdomen S/NT/ND, Ax4 bowel sounds, (-) CVA tenderness Musculoskeletal: 5/5 B/L UE strength, 5/5 B/L LE strength. No gait disturbance Skin: (-) rashes , (-) erythema. Psych: euthymic mood Low back with clean dressing without soakage. DARRYL drain with moderate serosanguineous collection noted. Results & Data Results & Data Vital Signs (Past 12 Hours) Vital Signs Temp Pulse Resp BP Pulse Ox O2 Del Method 11/17/23 14:39 36.6 C 68 16 127/66 94 Room Air 11/17/23 07:27 36.7 C 72 16 108/64 93 Room Air
[2023-11-18 07:22] LABS: Hematocrit (blood only) 31.5 % (37.0-47.0); Hemoglobin 10.2 g/dl (12.0-16.0); Mean Corpuscular Hemoglobin 32.1 pg (25.0-34.0); Mean Corpuscular Hgb Conc 32.4 g/dL (32.0-36.0); Mean Corpuscular Volume 99.1 fL (80.0-100.0); Mean Platelet Volume 10.6 fL (9.4-12.4); Platelet Count 237 K/uL (130-400); RDW Coefficient of Variation 12.6 % (11.5-14.5); RDW Standard Deviation 45.7 fL (36.4-46.3); Red Blood Count 3.18 M/uL (4.20-5.40); White Blood Count 13.11 K/ul (4.8-10.8)
[2023-11-18 07:59] LABS: BUN Creatinine Ratio 22.7 (10-20); Calcium 8.9 mg/dl (8.6-10.3); Creatinine Clr Calc Pharmacy 64.6 ml/min; Est GFR (African American) 76.6 ml/min; Est GFR (Non-African American) 66.1 ml/min; Potassium 4.8 mmol/L (3.5-5.1)
--- NOTE | 2023-11-18 10:26 | Orthopedic Progress Note ---
Date of Service November 18, 2023 Assessment & Plan (1) Neurogenic claudication due to lumbar spinal stenosis: Plan: This time continue with therapy as tolerated. We will plan for discharge tomorrow pending her orthostatic hypotension. Admission and Anticipated Discharge Date Admission Date: November 15, 2023 Subjective Patient's back pain is controlled leg pain improved. She is struggling with orthostatic hypotension. Otherwise is progressing nicely. Physical Exam Physical Exam: On exam patient is currently in bed. She is comfortable. Is good strength testing. Results & Data Vital Signs (Past 12 Hours) Vital Signs Temp Pulse Resp BP Pulse Ox O2 Del Method 11/18/23 08:15 Room Air 11/18/23 07:50 36.7 C 61 14 136/74 94 Room Air
[2023-11-18] MEDS: LINACLOTIDE 145 MCG CAPSULE PO PRN (14:02)
--- NOTE | 2023-11-18 16:58 | Hospitalist Progress Note ---
Date of Service November 18, 2023 Assessment & Plan (1) Neurogenic claudication due to lumbar spinal stenosis: (2) History of stroke: (3) Hypertension: (4) Hypothyroidism: (5) Depression: Plan Ms. Vick is a 73 year old female that underwent an elective L3-S1 decompression and fusion surgery under the care of Dr. Mena after failed conservative treatment for back pain as an outpatient. Additional PMH includes: H/O CVA, fatty liver disease, HTN, hypothyroidism, and depression. Additionally patient has diagnosis of spontaneous CFS leaking diagnosed 2012. She has reportedly had 13 leaks that has received blood patch. She takes Diamox and potassium for this. Postoperatively she is slightly hypotensive SBP 96/59, asymptomatic. She does have IV fluids infusing. She does seem to become hypotensive after she receives pain medication. Preop labs from 11/07/2023 indicated baseline hemoglobin 13.2. Pt denies SOTELO, visual or auditory changes, N/V/D, abdominal pain or tenderness, chest pain, palpitations, dysuria, Recent falls or trauma. She is AAO x 4 and ab le to follow all commands. She denies any neuropathy or numbness tingling in lower extremities. She is able to wiggle both of her lower extremity. She has not passed flatulence as of yet. Neurogenic claudication due to lumbar spinal stenosis: POD#3 s/p L3-S1 decompression and fusion surgery under the care of Dr. Mena. Per ortho for pain control, wound care, anticoagulation and activities. 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 Hold per protocol BP soft post op: 96/59; appears to be low after pain medication administration Hypothyroidism: Chronic Takes levothyroxine;continue Depression: Chronic Takes Celexa;continue Disposition: PCP: Fernando Buckner Code Status: Full code VTE Prophylaxis: Teds and SCDs for now per admitting team Admission and Anticipated Discharge Date Admission Date: November 15, 2023 Subjective Back pain controlled rt leg pain markedly improved. eating ok, no bm. MOving gas. Reports improving dizziness, but had some orthostatic hypotension persisting, will continue to follow-up. Patient advised for slow transition between change in position. no fever. reports improving dizziness. Physical Exam Physical Exam: Neuro: AAOx4, PERRLA, no aphagia, memory changes, CNII-XII grossly intact HEENT: head normocephalic, moist mucus membranes CV: S1/S2, (-) M/G/R, (-) edema, cap refill < 3 seconds Resp: Lungs CTA in all monteiro. On RA GI: Abdomen S/NT/ND, Ax4 bowel sounds, (-) CVA tenderness Musculoskeletal: 5/5 B/L UE strength, 5/5 B/L LE strength. No gait disturbance Skin: (-) rashes , (-) erythema. Psych: euthymic mood Low back with clean dressing without soakage. Results & Data Results & Data Vital Signs (Past 12 Hours) Vital Signs Temp Pulse Pulse Resp BP BP Pulse Ox 11/18/23 15:37 36.7 C 63 16 121/66 94 11/18/23 13:17 36.5 C 65 15 136/87 92 11/18/23 08:15 11/18/23 07:50 36.7 C 61 14 136/74 94 O2 Del Method 11/18/23 15:37 Room Air 11/18/23 13:17 Room Air 11/18/23 08:15 Room Air 11/18/23 07:50 Room Air
[2023-11-19] MEDS: LORazepam 0.5 MG TAB PO PRN (06:38)
[2023-11-19 07:30] LABS: Hematocrit (blood only) 30.7 % (37.0-47.0); Hemoglobin 10.2 g/dl (12.0-16.0); Mean Corpuscular Hemoglobin 31.6 pg (25.0-34.0); Mean Corpuscular Hgb Conc 33.2 g/dL (32.0-36.0); Mean Platelet Volume 10.8 fL (9.4-12.4); Nucleated RBC # (auto) 0.02 K/uL (0.00-0.12); Nucleated RBC % (auto) 0.2 %; Platelet Count 259 K/uL (130-400); RDW Coefficient of Variation 12.4 % (11.5-14.5); RDW Standard Deviation 43.1 fL (36.4-46.3); Red Blood Count 3.23 M/uL (4.20-5.40); White Blood Count 12.73 K/ul (4.8-10.8)
[2023-11-19 08:57] LABS: Calcium 8.7 mg/dl (8.6-10.3); Potassium 4.1 mmol/L (3.5-5.1)
[2023-11-19 09:02] LABS: BUN Creatinine Ratio 23.8 (10-20); Creatinine Clr Calc Pharmacy 71.1 ml/min; Est GFR (Non-African American) 74.2 ml/min
[2023-11-19] MEDS: traMADol HCL 50 MG TABLET PO PRN (10:19)
--- NOTE | 2023-11-19 10:21 | Orthopedic Progress Note ---
Date of Service November 19, 2023 Assessment & Plan (1) Neurogenic claudication due to lumbar spinal stenosis: Plan: At this time she has new onset spasms and perhaps radicular pain in the right anterior thigh. This could be related to adjacent level neural compression. We will continue with pain management and like to obtain an MRI lumbar spine with attention to adjacent levels. Admission and Anticipated Discharge Date Admission Date: November 15, 2023 Subjective Patient began experiencing severe right groin pain with radiation down the a nterior thigh. It is spasmodic in nature. It is related to motion. She states this started when she sat up this morning and began ambulating. This is a new pain pattern. She has not experienced this in the past. Her previous sciatica symptoms are resolved. Physical Exam Physical Exam: On exam patient is quite uncomfortable. She has difficulty lying in a supine position. Logroll is equivocal. Sensory is intact. She is strength testing to the lower extremities. Results & Data Vital Signs (Past 12 Hours) Vital Signs Temp Pulse Resp BP Pulse Ox O2 Del Method 11/19/23 08:28 36.3 C L 64 15 130/76 97 Room Air 11/19/23 07:00 Room Air 11/18/23 23:17 36.6 C 66 16 130/71 95 Room Air
[2023-11-19] MEDS: diazePAM 5 MG TABLET PO PRN (12:10)
[2023-11-19] MEDS: HYDROmorphone INJ 1 MG/ML SYRINGE IV PRN (13:37)
--- NOTE | 2023-11-19 16:55 | Hospitalist Progress Note ---
Date of Service November 19, 2023 Assessment & Plan (1) Neurogenic claudication due to lumbar spinal stenosis: (2) History of stroke: (3) Hypertension: (4) Hypothyroidism: (5) Depression: Plan Ms. Vick is a 73 year old female that underwent an elective L3-S1 decompression and fusion surgery under the care of Dr. Mena after failed conservative treatment for back pain as an outpatient. Additional PMH includes: H/O CVA, fatty liver disease, HTN, hypothyroidism, and depression. Additionally patient has diagnosis of spontaneous CFS leaking diagnosed 2012. She has reportedly had 13 leaks that has received blood patch. She takes Diamox and potassium for this. Postoperatively she is slightly hypotensive SBP 96/59, asymptomatic. She does have IV fluids infusing. She does seem to become hypotensive after she receives pain medication. Preop labs from 11/07/2023 indicated baseline hemoglobin 13.2. Pt denies SOTELO, visual or auditory changes, N/V/D, abdominal pain or tenderness, chest pain, palpitations, dysuria, Recent falls or trauma. She is AAO x 4 and ab le to follow all commands. She denies any neuropathy or numbness tingling in lower extremities. She is able to wiggle both of her lower extremity. She has not passed flatulence as of yet. Neurogenic claudication due to lumbar spinal stenosis: POD#4 s/p L3-S1 decompression and fusion surgery under the care of Dr. Mena. Per ortho for pain control, wound care, anticoagulation and activities. 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 Hold per protocol BP soft post op: 96/59; appears to be low after pain medication administration Hypothyroidism: Chronic Takes levothyroxine;continue Depression: Chronic Takes Celexa;continue Disposition: PCP: Fernando Buckner Code Status: Full code VTE Prophylaxis: Teds and SCDs for now per admitting team Admission and Anticipated Discharge Date Admission Date: November 15, 2023 Subjective Back pain controlled. eating ok, no bm. MOving gas. Reports improving dizziness, but had new RLE radicular pain started in the morning while trying to stand up. MRI has been sent, f/u. no fever. Physical Exam Physical Exam: Neuro: AAOx4, PERRLA, no aphagia, memory changes, CNII-XII grossly intact HEENT: head normocephalic, moist mucus membranes CV: S1/S2, (-) M/G/R, (-) edema, cap refill < 3 seconds Resp: Lungs CTA in all monteiro. On RA GI: Abdomen S/NT/ND, Ax4 bowel sounds, (-) CVA tenderness Musculoskeletal: 5/5 B/L UE strength, 5/5 B/L LE strength. No gait disturbance Skin: (-) rashes , (-) erythema. Psych: euthymic mood Low back with clean dressing without soakage. Results & Data Results & Data Vital Signs (Past 12 Hours) Vital Signs Temp Pulse Resp BP Pulse Ox O2 Del Method 11/19/23 08:28 36.3 C L 64 15 130/76 97 Room Air 11/19/23 07:00 Room Air
--- NOTE | 2023-11-19 17:15 | Magnetic Resonance Report ---
LUMBAR SPINE MRI HISTORY: right leg pain TECHNIQUE: Multiplanar multisequence MRI of the lumbar spine was performed without the use of contras t. COMPARISON: None. FINDINGS: For the purpose of the report the L5-S1 disc space will be located on axial image 32 of 40. There is straightening of the lumbar spine. The patient is status post recent posterior decompression and fusion from L3 through S1 with pedicle screws and rods. Disc spacers at these locations appear i n good position. No fracture or subluxation. The visualized sacrum is intact. Midline incision within the lower back with a small amount of subcutaneous fluid suggesting a postoperative seroma. Paraspin al soft tissue edema is also likely secondary to the recent postoperative change. The conus terminate s at the L1-L2 disc space level. There is a 9.1 x 3.9 x 7.4 cm fluid collection at the laminectomy si adam with a few thin septations inferiorly. This results in mass effect along the posterior thecal sac with severe predominantly right-sided central canal narrowing at the L3 and L4 levels. This favors a postoperative seroma. A pseudomeningocele also remains in the differential diagnosis. L1-L2: No significant central canal or neural foraminal narrowing. L2-L3: No significant central canal or neural foraminal narrowing. L3-L4: Severe central canal narrowing secondary to mass effect from the fluid collection at the erendira ectomy site. This fluid collection is predominantly along the right side of the thecal sac and result s in left deviation and mass effect of the cauda equina at this level. This is best seen on axial eliana ge 19. No significant neural foraminal narrowing. L4-L5: Severe central canal narrowing secondary to mass effect from the fluid collection at the erendira ectomy site along the posterior thecal sac. The central canal demonstrates an AP diameter of 3 mm. Th is is best seen on axial image 26. No significant neural foraminal narrowing. L5-S1: Mild to moderate central canal narrowing due to the mass effect from the fluid collection at t he laminectomy site. The thecal sac on axial image 38 measures 8 mm. No significant left-sided neural foraminal narrowing. There is a small focus of gas within the right neural foramen without significa nt neural foraminal narrowing. IMPRESSION: 1. Status post recent posterior decompression and fusion from L3 through S1 with pedicle screws and r ods. 2. There is a 9.1 x 3.9 x 7.4 cm fluid collection at the laminectomy sites with a few thin septations inferiorly. This results in mass effect along the posterior thecal sac with severe predominantly rig ht-sided central canal narrowing at the L3 and L4 levels as described above. This favors a postoperat yovana seroma. A pseudomeningocele also remains in the differential diagnosis. 3. No fracture or subluxation within the lumbar spine. ACT 112: Negative or not required by law. Electronically signed by: Randy Mclain M.D. 11/19/2023 5:12 PM
[2023-11-19] MEDS: CYCLOBENZAPRINE HCL 5 MG TAB PO PRN (19:49)
--- NOTE | 2023-11-20 10:50 | Orthopedic Progress Note ---
Date of Service November 20, 2023 Assessment & Plan (1) Neurogenic claudication due to lumbar spinal stenosis: Plan: MRI of the lumbar spine demonstrates evidence of significant seroma with collection in the cephalad component of the dissection. I am strongly suspect this is the etiology of her right leg symptoms. I explained this to the patient. Will make her n.p.o. after midnight plan for I&D lumbar spine tomorrow morning. Admission and Anticipated Discharge Date Admission Date: November 15, 2023 Subjective Patient continues to have right leg pain with activity. Pain is controlled with Dilaudid. Physical Exam Physical Exam: On exam she is neurologically intact. She is uncomfortable with motion. Results & Data Vital Signs (Past 12 Hours) Vital Signs Temp Pulse Resp BP Pulse Ox O2 Del Method O2 Flow Rate 11/20/23 07:34 36.9 C 73 16 145/76 H 95 Nasal Cannula 2 11/20/23 07:00 Nasal Cannula 2
--- NOTE | 2023-11-20 15:04 | Hospitalist Progress Note ---
Date of Service November 20, 2023 Assessment & Plan (1) Neurogenic claudication due to lumbar spinal stenosis: (2) History of stroke: (3) Hypertension: (4) Hypothyroidism: (5) Depression: Plan Ms. Vick is a 73 year old female that underwent an elective L3-S1 decompression and fusion surgery under the care of Dr. Mena after failed conservative treatment for back pain as an outpatient. Additional PMH includes: H/O CVA, fatty liver disease, HTN, hypothyroidism, and depression. Additionally patient has diagnosis of spontaneous CFS leaking diagnosed 2012. She has reportedly had 13 leaks that has received blood patch. She takes Diamox and potassium for this. Postoperatively she is slightly hypotensive SBP 96/59, asymptomatic. She does have IV fluids infusing. She does seem to become hypotensive after she receives pain medication. Preop labs from 11/07/2023 indicated baseline hemoglobin 13.2. Pt denies SOTELO, visual or auditory changes, N/V/D, abdominal pain or tenderness, chest pain, palpitations, dysuria, Recent falls or trauma. She is AAO x 4 and ab le to follow all commands. She denies any neuropathy or numbness tingling in lower extremities. She is able to wiggle both of her lower extremity. She has not passed flatulence as of yet. Neurogenic claudication due to lumbar spinal stenosis: POD#5 s/p L3-S1 decompression and fusion surgery under the care of Dr. Mena. Per ortho for pain control, wound care, anticoagulation and activities. Monitor H&H, preop Hgb 13.2; will trend in AM Continue incentive spirometry. PT/OT when appropriate Had new RLE pain 11/18 --> MR L spine w/ significant seroma collection, likely reason for new radicular symptoms --> for IandD 11/20 by orthospine. 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 Hold per protocol BP soft post op: 96/59; appears to be low after pain medication administration Hypothyroidism: Chronic Takes levothyroxine;continue Depression: Chronic Takes Celexa;continue Disposition: PCP: Fernando Buckner Code Status: Full code VTE Prophylaxis: Teds and SCDs for now per admitting team Admission and Anticipated Discharge Date Admission Date: November 15, 2023 Subjective Back pain controlled. eating ok, no bm. MOving gas. Reports improving dizziness, but had new RLE radicular pain started in yesterday morning while trying to stand up which continues. no fever. NPO midnight, I and D of seroma patricia. Physical Exam Physical Exam: Neuro: AAOx4, PERRLA, no aphagia, memory changes, CNII-XII grossly intact HEENT: head normocephalic, moist mucus membranes CV: S1/S2, (-) M/G/R, (-) edema, cap refill < 3 seconds Resp: Lungs CTA in all monteiro. On RA GI: Abdomen S/NT/ND, Ax4 bowel sounds, (-) CVA tenderness Musculoskeletal: 5/5 B/L UE strength, 5/5 B/L LE strength. No gait disturbance Skin: (-) rashes , (-) erythema. Psych: euthymic mood Low back with clean dressing without soakage. Results & Data Results & Data Vital Signs (Past 12 Hours) Vital Signs Temp Pulse Resp BP Pulse Ox O2 Del Method O2 Flow Rate 11/20/23 07:34 36.9 C 73 16 145/76 H 95 Nasal Cannula 2 11/20/23 07:00 Nasal Cannula 2
--- NOTE | 2023-11-20 16:35 | Anesthesiology Consultation ---
Date of Service November 20, 2023 Assessment & Plan Chart Review Chart Review: Acceptable Risk for Surgery and Patient NOT seen in Pre Admission Testing Consults Requested none ASA ASA2 Proposed Anesthesia Anesthesia Type: General History Surgery Operation Date: 11/15/23 07:45 Proposed Procedures p L3-S1 Decompression and Fusion Spinal Cord Monitoring - Jean-Pierre Mena DO Height/Weight Height: 5 ft 8 in Weight: 78.7 kg Allergies Allergy/AdvReac Type Severity Reaction Status Date / Time Iodinated Contrast Media Allergy Severe Rash Verified 11/15/23 06:54 codeine AdvReac Severe N/V Verified 11/15/23 06:54 tramadol AdvReac Intermediate n/v Verified 11/15/23 06:54 Medications Home Medications Medication Instructions Recorded Confirmed Last Taken acetazolamide 250 mg tablet 125 mg PO WK 10/26/23 11/15/23 11/13/23 22:00 albuterol sulfate 1.25 mg/3 mL 1.25 mg inhalation QID PRN sob 10/26/23 11/15/23 Unknown solution for nebulization albuterol sulfate 90 mcg/actuation 1 inh inhalation QID PRN sob 10/26/23 11/15/23 Unknown aerosol inhaler aspirin 81 mg capsule 81 mg PO QAM 10/26/23 11/15/23 Unknown bisoprolol fumarate 5 mg tablet 5 mg PO QAM 10/26/23 10/26/23 11/15/23 05:00 citalopram 20 mg tablet (Celexa) 20 mg PO QAM 10/26/23 10/26/23 11/15/23 05:00 estradiol 2 mg tablet 2 mg PO QAM 10/26/23 11/15/23 11/14/23 09:00 fenofibrate 160 mg tablet 160 mg PO QAM 10/26/23 11/15/23 11/14/23 09:00 fluticasone 250 mcg-salmeterol 50 1 inh inhalation BID PRN 10/26/23 11/15/23 Unknown mcg/dose blistr powdr for sob/wheezing inhalation (Advair Diskus) gabapentin 300 mg capsule 300 mg PO QAM 10/26/23 11/15/23 Unknown levothyroxine 75 mcg tablet 75 mcg PO QAM 10/26/23 11/15/23 11/14/23 09:00 (Synthroid) ondansetron HCl 8 mg tablet 8 mg PO Q12H PRN Nausea And 10/26/23 11/15/23 Unknown Vomiting potassium chloride 10 mEq 10 meq PO WK 10/26/23 11/15/23 Unknown tablet,extended release tramadol 50 mg tablet 50 mg PO DAILY PRN Severe Pain 10/26/23 11/15/23 Unknown (Scale Score 7-10) oxycodone 5 mg tablet 5 mg PO Q6H PRN pain #30 tabs 11/16/23 Unknown tramadol 50 mg tablet 50 mg PO Q6H PRN pain, moderate 11/16/23 Unknown #30 tabs Active Medications Generic Name Dose Route Start Last Admin Trade Name Freq PRN Reason Stop Dose Admin Acetaminophen 1,000 mg 11/15/23 11:44 11/19/23 00:35 Acetaminophen 500 Mg Tab PO 12/15/23 11:43 1,000 mg Q8H PRN Administration MILD Pain Scale 1,2,3 & Pre PT Aspirin 81 mg 11/16/23 09:00 11/20/23 08:14 Aspirin 81 Mg Ectab PO 12/16/23 08:59 81 mg QAM CORI Administration Bisoprolol Fumarate 5 mg 11/16/23 09:00 11/16/23 08:06 Bisoprolol Fumarate 5 Mg Tab PO 12/16/23 08:59 Not Given QAM CORI Citalopram Hydrobromide 20 mg 11/16/23 09:00 11/20/23 08:14 Citalopram 20 Mg Tab PO 12/16/23 08:59 20 mg QAM CORI Administration Cyclobenzaprine HCl 5 mg 11/19/23 08:11 11/20/23 08:14 Cyclobenzaprine Hcl 5 Mg Tab PO 12/19/23 08:59 5 mg BID PRN Administration spasms, pain Diazepam 5 mg 11/19/23 10:18 11/20/23 02:11 Diazepam 5 Mg Tablet PO 12/19/23 10:17 5 mg BID PRN Administration Muscle Spasm Estradiol 2 mg 11/16/23 09:00 11/20/23 08:14 Estradiol 1 Mg Tab PO 12/16/23 08:59 2 mg QAM CORI Administration Fenofibrate 145 mg 11/16/23 09:00 11/20/23 08:14 Fenofibrate Nanocrystallized 145 Mg Tablet PO 12/16/23 08:59 145 mg QAM CORI Administration Gabapentin 300 mg 11/16/23 09:00 11/20/23 08:14 Gabapentin 300 Mg Cap PO 12/16/23 08:59 300 mg QAM CORI Administration Hydromorphone HCl 0.5 mg 11/15/23 11:44 11/15/23 17:29 Hydromorphone Inj 0.5 Mg/0.5 Ml Syr IV 11/29/23 11:43 0.5 mg Q3H PRN Administration MODERATE Pain (Scale 4,5,6) & Pre PT Hydromorphone HCl 1 mg 11/15/23 11:44 11/20/23 12:10 Hydromorphone Inj 1 Mg/Ml Syringe IV 11/29/23 11:43 1 mg Q3H PRN Administration SEVERE Pain (Scale 7,8,9,10) Levothyroxine Sodium 75 mcg 11/16/23 09:00 11/20/23 08:14 Levothyroxine Sodium 75 Mcg Tablet PO 12/16/23 08:59 75 mcg QAM CORI Administration Linaclotide 145 mcg 11/18/23 13:13 11/20/23 08:16 Linaclotide 145 Mcg Capsule PO 12/18/23 13:14 145 mcg DAILY PRN Administration constipation Lorazepam 0.5 mg 11/15/23 11:44 11/19/23 06:38 Lorazepam 0.5 Mg Tab PO 12/15/23 11:43 0.5 mg Q8H PRN Administration Sedation/Anxiety Oxycodone HCl 5 - 10 mg 11/15/23 11:44 11/20/23 05:57 Oxycodone Hcl Ir 5 Mg Tab (Immediate Release) PO 11/29/23 11:43 10 mg Q4H PRN Administration Pain & Pre PT Polyethylene Glycol 17 gm 11/16/23 06:00 11/20/23 13:27 Polyethylene (Miralax) 17 Gm Pack PO 12/16/23 05:59 Not Given Q6 CORI Senna/Docusate Sodium 2 tab 11/15/23 21:00 11/19/23 20:04 Docusate Sodium/Senna 50/8.6mg Tab PO 12/15/23 20:59 Not Given HS CORI Tramadol HCl 50 - 100 mg 11/15/23 11:44 11/19/23 10:19 Tramadol Hcl 50 Mg Tablet PO 12/15/23 11:43 100 mg Q4H PRN Administration Moderate-Severe pain & Pre PT NPO Last Intake of Fluids Comment: sups with medications Past Medical History Medical History Hx of motion sickness has used the scope patch to travel. History of postoperative nausea and vomiting History of cardiac arrhythmia follows with [facility] Degenerative disc disease Chronic back pain Fatty liver Hypoglycemia "randomly" Anxiety Seasonal allergies Asthma rarely uses, only uses when sick. Hypertriglyceridemia History of lumbar puncture with blood patch and also surgical glue patches. Spontaneous cerebrospinal fluid leak from spine dx 2013 - treated at [facility] in [place] "treats me like a stroke when it happens" no problems since the blood patch/leaks have been patched with surgical glue. Exercise / Class Metabolic Activity II 4-5 Yardwork/Stairs/Walk up hill Past Family History Family History Other No family history of adverse response to anesthesia Past Surgical History Surgical History H/O bilateral oophorectomy S/P DANIELLE (total abdominal hysterectomy) S/P left knee arthroscopy H/O lumbar discectomy History of colonoscopy History of appendectomy History of cataract surgery bilateral History of cardiac cath remote history (early ) - no stents Past Anesthesia History No Hx of Anesthesia Complications and No Family Hx of Anesthesia Complications History of PONV No Hx of PONV and No Hx of Motion Sickness Social History Smoking Status: Former smoker Do You Dip or Chew Tobacco: No Smoking End Date: at age 27 Hx Alcohol Use: Yes Alcohol type: wine and hard liquor alcohol intake frequency: holidays/special occasions only Hx Substance Use: No substance use type: does not use Physical Exam Vital Signs Last Vital Signs Temp 36.6 C 11/20/23 15:24 Pulse 76 11/20/23 15:24 Resp 16 11/20/23 15:24 BP 100/62 11/20/23 15:24 Pulse Ox 95 11/20/23 15:24 O2 Del Method Nasal Cannula 11/20/23 15:24 O2 Flow Rate 1.5 06/02/24 15:24 Testing Laboratory Results 11/19/23 06:49 11/19/23 06:49 Blood Type O Negative 11/15/23 06:28 Antibody Screen NEGATIVE 11/15/23 06:28 Electrocardiogram Date: 11/07/23 Findings: + NSR @ (@ 68;IRBBB;LAD) Chest X-Ray Date: 11/07/23 Findings: + NAD
[2023-11-21 06:59] LABS: Hematocrit (blood only) 29.9 % (37.0-47.0); Hemoglobin 9.9 g/dl (12.0-16.0); Mean Corpuscular Hemoglobin 32.2 pg (25.0-34.0); Mean Corpuscular Hgb Conc 33.1 g/dL (32.0-36.0); Mean Corpuscular Volume 97.4 fL (80.0-100.0); Mean Platelet Volume 10.4 fL (9.4-12.4); Platelet Count 279 K/uL (130-400); RDW Coefficient of Variation 12.4 % (11.5-14.5); RDW Standard Deviation 44.1 fL (36.4-46.3); Red Blood Count 3.07 M/uL (4.20-5.40)
[2023-11-21 07:35] LABS: BUN Creatinine Ratio 24.4 (10-20); Calcium 8.5 mg/dl (8.6-10.3); Creatinine Clr Calc Pharmacy 69.4 ml/min; Est GFR (African American) 83.4 ml/min; Potassium 3.9 mmol/L (3.5-5.1)
[2023-11-21] MEDS: LACTATED RINGER'S 1,000 ML IV SCH (09:39)
[2023-11-21] MEDS ORDERED: ePHEDrine sulfate 50 MG/ML AMP IV PRN (10:02)
[2023-11-21] MEDS ORDERED: fentaNYL citrate PF 100 MCG/2 ML VIAL IV PRN (10:02)
[2023-11-21] MEDS ORDERED: DROPERIDOL 5 MG/2 ML VIAL IV PRN (10:02)
[2023-11-21] MEDS ORDERED: ATROPINE SULFATE 0.1 MG/ML 10ML SYR IV PRN (10:02)
[2023-11-21] MEDS ORDERED: fentaNYL citrate PF 100 MCG/2 ML VIAL ONE (10:08)
[2023-11-21] MEDS ORDERED: NEOSTIGMINE METHYLSULFATE 1 MG/ML 10ML VIAL ONE (10:08)
[2023-11-21] MEDS ORDERED: ROCURONIUM BROMIDE 10 MG/ML 5 ML VIAL IV ONE (10:08)
[2023-11-21] MEDS ORDERED: MIDAZOLAM HCL 1 MG/ML 2ML VIAL ONE (10:08)
[2023-11-21] MEDS ORDERED: LIDOCAINE 2% 2 ML VIAL/AMP(20MG/ML) INFIL ONE (10:08)
[2023-11-21] MEDS ORDERED: GLYCOPYRROLATE 0.2 MG/ML VIAL ONE (10:08)
[2023-11-21] MEDS ORDERED: PROPOFOL IV EMULSION 10 MG/ML 20 ML VIAL IV ONE (10:08)
[2023-11-21] MEDS ORDERED: DEXAMETHASONE SOD INJ 4 MG/ML VIAL ONE (10:08)
[2023-11-21] MEDS ORDERED: ONDANSETRON INJ 2 MG/ML 2 ML VIAL ONE (10:08)
--- NOTE | 2023-11-21 10:20 | History & Physical Bridge Note ---
Date of Service November 21, 2023 History & Physical Bridge Note I have examined the patient, reviewed the History & Physical and in the interval since the performance of the History & Physical I have noted the following changes of clinical significance: no changes noted Irrigation debridement lumbar spine
[2023-11-21] MEDS: ceFAZolin 2,000 MG/15 ML IV PUSH IV ONE (10:58)
[2023-11-21] MEDS: ceFAZolin 2000MG 2,000 MG/15 ML SYR IV ONE (10:58)
[2023-11-21] MEDS ORDERED: HYDROmorphone INJ 2 MG/ML SYR/VIAL ONE (11:14)
[2023-11-21] MEDS ORDERED: KETAMINE HCL 10MG/ML SYR ONE (11:18)
[2023-11-21] MEDS ORDERED: SUGAMMADEX SODIUM 200 MG/2 ML VIAL IV ONE (11:29)
--- NOTE | 2023-11-21 11:33 | Operative Report ---
Post Operative Report Pre & Post Diagnosis Operation Date: 11/21/23 09:10 Pre-Op Diagnosis: post-operative hematoma Post-Op Diagnosis: post-operative hematoma I identified the patient and participated in the time-out.: Yes Procedure Operation Date: 11/21/23 09:10 Actual Procedures p Incision and Drainage Lumbar(Not Applicable) - Jean-Pierre Mena DO Surgeon Jean-Pierre Mena DO Communications Professional Malissa Antonio Estimated Blood Loss 10 Findings Consistent with Post-Op Diagnosis Specimens None Indications This is a 73-year-old female who presents with postoperative leg pain beginning approximately third day. MRI demonstrates evidence of accumulation of the seroma hematoma lumbar spine with significant encroachment on the thecal sac. Subsequently she is here for I&D. Description of Procedure Patient was met with identified informed consent obtained. Patient was then taken to the operative suite underwent ablation placed in a prone position on the Pasha table on top of the [place] frame. All bony promises well-padded eyes inspected to ensure no external pressure placed upon the. This point the lumbar spine was prepped and draped in normal sterile fashion. Utilizing the previous incision site sharp dissection was formed down to and exposing the fascia. The fascia was released and the serosanguineous fluid was noted. Approximately 250 cc of fluid was drained. The thecal sac was clearly decompressed. Several liters of saline were then copiously irrigated throughout the incision. Then placed approximately 5 cc of Stimulan beads impregnated with vancomycin and gentamicin throughout the incision. 15 round DARRYL drain inserted. The incision was then closed with 1 Vicryl to fascia 2-0 Vicryl subcutaneously and 4 Monocryl for final skin closure. Steri-Strips sterile dressing placed. Patient awakened taken to PACU stable condition. Please note Malissa Antonio was present that the entire procedure involved patient positioning complex portions of the procedure and final skin closure. I attest to the content of the Intraoperative Record and any orders documented therein. Any exceptions are noted below.
[2023-11-21] MEDS: BUPIVACAINE/EPINEPHRINE 0.25% 1:200,000 30 ML VIAL ONE (11:41)
[2023-11-21] MEDS: GENTAMICIN SULFATE 40 MG/ML 2 ML VIAL ONE (11:41)
[2023-11-21] MEDS: VANCOMYCIN HCL 1000MG/20ML VIAL ONE (11:42)
--- NOTE | 2023-11-21 12:30 | Anesthesiology Progress Note ---
Date of Service November 21, 2023 Anesthesia Post Procedure Vital Signs Vital Signs: Temp Pulse Pulse Resp BP BP Pulse Ox 11/21/23 12:20 36.6 C 72 12 141/74 H 92 11/21/23 12:10 73 12 127/72 97 11/21/23 12:00 77 16 132/77 99 11/21/23 11:53 36.5 C 55 L 17 149/78 H 95 11/21/23 09:29 37.1 C 74 22 137/82 95 11/21/23 07:56 36.6 C 70 16 145/82 H 95 11/20/23 20:15 36.8 C 82 16 106/83 95 11/20/23 19:15 11/20/23 15:24 36.6 C 76 16 100/62 95 O2 Del Method O2 Flow Rate 11/21/23 12:20 Oxymask 2 11/21/23 12:10 Oxymask 5 11/21/23 12:00 Oxymask 10 11/21/23 11:53 Oxymask 10 11/21/23 09:29 Nasal Cannula 2 11/21/23 07:56 Room Air 11/20/23 20:15 Nasal Cannula 2 11/20/23 19:15 Nasal Cannula 2 11/20/23 15:24 Nasal Cannula 1.5 Pain Intensity Right Buttock: Pain Intensity: 0 Back: Pain Intensity: 4 Transfer of Care Handoff Completed per policy Notes Mental Status: alert / awake / arousable Patient Amnestic to Procedure: Yes Nausea / Vomiting: adequately controlled Pain: adequately controlled Airway Patency, RR, SpO2: stable & adequate BP & HR: stable & adequate Hydration State: stable & adequate Anesthetic Complications: no major complications apparent and Pt Satisfied with anesthetic care
[2023-11-21] MEDS: ceFAZolin 330 MG/ML 1 GM VIAL ONE (13:44)
--- NOTE | 2023-11-21 15:01 | Hospitalist Progress Note ---
Date of Service November 21, 2023 Assessment & Plan (1) Neurogenic claudication due to lumbar spinal stenosis: (2) History of stroke: (3) Hypertension: (4) Hypothyroidism: (5) Depression: Plan Ms. Vick is a 73 year old female that underwent an elective L3-S1 decompression and fusion surgery under the care of Dr. Mena after failed conservative treatment for back pain as an outpatient. Additional PMH includes: H/O CVA, fatty liver disease, HTN, hypothyroidism, and depression. Additionally patient has diagnosis of spontaneous CFS leaking diagnosed 2012. She has reportedly had 13 leaks that has received blood patch. She takes Diamox and potassium for this. She is here due to post operative seroma and underwent I and D on 11/20. Neurogenic claudication due to lumbar spinal stenosis: POD#6 s/p L3-S1 decompression and fusion surgery under the care of Dr. Mena. Had new RLE pain 6/ --> MR L spine w/ significant seroma collection, likely reason for new radicular symptoms --> for IandD 11/20 by orthospine. POD #0 S/P Incision and drainage of post operative seroma; EBL 10ml Per ortho for pain control, wound care, anticoagulation and activities. Monitor H&H, preop Hgb 13.2; will trend in AM Continue incentive spirometry. PT/OT when appropriate Acute blood loss anemia as cause of post operative anemia pre op hgb 13.2, post op 9.9 and stable no indication for transfusion at this time Post operative constipation continue miralax, schedule linzess will give dose of dulcolax x 1 now consider KUB in a.m. 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 due to increased pressure Hypothyroidism: Chronic Takes levothyroxine;continue Depression: Chronic Takes Celexa;continue Disposition: PCP: Fernando Buckner Code Status: Full code VTE Prophylaxis: Teds and SCDs for now per admitting team Thank you for this consultation. We will follow the patient with you during their hospital stay. You can reach a member of the [facility] Hospitalist Team 10/01 via hospitalist role on tiger text. A total of 45 minutes was spent coordinating, documenting, and providing care for this patient excluding time spent in the performance of separately billed services. This included personally viewing all current laboratories and imaging studies, medication reconciliation, outpatient chart review, and discussion with specialists. Admission and Anticipated Discharge Date Admission Date: November 15, 2023 Subjective Patient was seen and examined in 320. and family member at bedside. She is status post I&D in the OR today by Dr. Mena due to postop seroma. She feels much better since having surgical procedure. A DARRYL drain was placed. She currently feels, "loopy," from surgery. She denies fever, chills, sweats, lightheadedness, dizziness, chest pain, shortness of breath, nausea, vomiting or abdominal pain. She tolerated lunch postoperatively. She has not had a bowel movement since her previous surgery. Review of Systems Review of Systems: All systems reviewed & are unremarkable except as noted in HPI & below Physical Exam Physical Exam: Gen: WD/WN, NAD, A&O x3 HEENT: Normocephalic, atraumatic, conjunctivae moist, sclerae anicteric, mucous membranes moist. Lung: Clear to Auscultation bilaterally, no wheezes/rales/rhonchi Heart: Regular rate, regular rhythm, 2/6 AMARA LUSB, no rubs, or gallops Abdomen: Soft, NT, ND +BS x 4 Extremities: No edema, lumbar dressing CDI, DARRYL drain with sersosang drainage Skin: Warm, no rash, negative turgor. Results & Data Results & Data Vital Signs (Past 12 Hours) Vital Signs Temp Pulse Pulse Pulse Resp BP BP 11/21/23 14:40 36.5 C 87 18 147/83 H 11/21/23 13:40 36.9 C 74 16 120/67 11/21/23 13:16 36.9 C 75 14 131/76 11/21/23 12:45 36.7 C 85 16 151/90 H 11/21/23 12:30 78 15 131/75 11/21/23 12:20 36.6 C 72 12 141/74 H 11/21/23 12:10 73 12 127/72 06/03/24 12:00 77 16 132/77 06/03/24 11:53 36.5 C 55 L 17 149/78 H 11/21/23 09:29 37.1 C 74 22 137/82 11/21/23 07:56 36.6 C 70 16 145/82 H Pulse Ox O2 Del Method O2 Flow Rate 11/21/23 14:40 94 Nasal Cannula 2 11/21/23 13:40 94 Nasal Cannula 2 11/21/23 13:16 93 Nasal Cannula 2 11/21/23 12:45 92 Nasal Cannula 2 11/21/23 12:30 94 Oxymask 2 11/21/23 12:20 92 Oxymask 2 11/21/23 12:10 97 Oxymask 5 11/21/23 12:00 99 Oxymask 10 11/21/23 11:53 95 Oxymask 10 11/21/23 09:29 95 Nasal Cannula 2 11/21/23 07:56 95 Room Air Medications Administered Current Inpatient Medications Acetaminophen (Acetaminophen 500 Mg Tab) 1,000 mg PO Q8H PRN PRN Reason: MILD Pain Scale 1,2,3 & Pre PT Stop: 12/15/23 11:43 Last Admin: 11/19/23 00:35 Dose: 1,000 mg Al Hydrox/Mg Hydrox/Simethicone (Aluminum/Magnesium Susp 30 Ml Udc) 30 ml PO Q6H PRN PRN Reason: Dyspepsia Stop: 12/15/23 11:43 Albuterol (Albuterol 0.083% Nebu Soln 3 Ml Vial) 1.25 mg INH QID PRN PRN Reason: Shortness Of Breath Stop: 12/15/23 11:50 Albuterol (Albuterol Hfa 8 Gm Inhaler) 1 puffs INH QID PRN PRN Reason: Shortness Of Breath Stop: 12/15/23 11:43 Aspirin (Aspirin 81 Mg Ectab) 81 mg PO QAM [facility] Stop: 12/16/23 08:59 Last Admin: 11/21/23 08:22 Dose: 81 mg Atropine Sulfate (Atropine Sulfate 0.1 Mg/Ml 10ml Syr) 0.5 mg IV Q1M PRN PRN Reason: PACU Use-HR<40 &/or Bradycardi Stop: 11/21/23 18:02 Bisacodyl (Bisacodyl 10 Mg Supp) 10 mg MI DAILY PRN PRN Reason: Constipation Stop: 12/15/23 11:43 Citalopram Hydrobromide (Citalopram 20 Mg Tab) 20 mg PO QAM [facility] Stop: 12/16/23 08:59 Last Admin: 11/21/23 08:22 Dose: 20 mg Cyclobenzaprine HCl (Cyclobenzaprine Hcl 5 Mg Tab) 5 mg PO BID PRN PRN Reason: spasms, pain Stop: 12/19/23 08:59 Last Admin: 11/21/23 04:54 Dose: 5 mg Diazepam (Diazepam 5 Mg Tablet) 5 mg PO BID PRN PRN Reason: Muscle Spasm Stop: 12/19/23 10:17 Last Admin: 11/20/23 19:19 Dose: 5 mg Diphenhydramine HCl (Diphenhydramine Capsule 25 Mg Cap) 25 mg PO Q6H PRN PRN Reason: Allergic Rhinitis/Insomnia Stop: 12/15/23 11:43 Droperidol (Droperidol 5 Mg/2 Ml Vial) 0.625 mg IV ONCE PRN PRN Reason: PACU Use Only for Nausea Stop: 11/21/23 18:02 Ephedrine Sulfate (Ephedrine Sulfate 50 Mg/Ml Amp) 5 mg IV Q5M PRN PRN Reason: PACU Use Only-SBP<90 mmHg Stop: 11/21/23 18:02 [facility]stradiol ([facility] 1 Mg Tab) [facility] [place]: 12/16/23 08:59 Last Admin: 11/21/23 08:22 Dose: 2 mg Famotidine (Famotidine 20 Mg Tab) 20 mg PO Q12H PRN PRN Reason: Dyspepsia Stop: 12/15/23 11:43 Fenofibrate (Fenofibrate Nanocrystallized 145 Mg Tablet) [facility] Stop: 12/16/23 08:59 Last Admin: 11/21/23 08:22 Dose: 145 mg Fentanyl Citrate (Fentanyl Citrate Pf 100 Mcg/2 Ml Vial) 25 mcg IV Q5M PRN PRN Reason: PACU Use Only-Pain Stop: 11/21/23 18:02 Fluticasone/Vilanterol (Fluticasone/Vilanterol 200/25mcg 14 Puffs/Inhaler) 1 puffs INH DAILY PRN PRN Reason: sob/wheezing Stop: 12/15/23 12:08 Gabapentin (Gabapentin 300 Mg Cap) 300 mg PO QAM [facility] Stop: 12/16/23 08:59 Last Admin: 11/21/23 08:22 Dose: 300 mg Hydromorphone HCl (Hydromorphone Inj 0.5 Mg/0.5 Ml Syr) 0.5 mg IV Q3H PRN PRN Reason: MODERATE Pain (Scale 4,5,6) & Pre PT Stop: 11/29/23 11:43 Last Admin: 11/21/23 06:24 Dose: 0.5 mg Hydromorphone HCl (Hydromorphone Inj 1 Mg/Ml Syringe) 1 mg IV Q3H PRN PRN Reason: SEVERE Pain (Scale 7,8,9,10) Stop: 11/29/23 11:43 Last Admin: 11/20/23 16:58 Dose: 1 mg Hydroxyzine HCl (Hydroxyzine Hcl 25 Mg Tab) 25 mg PO Q8H PRN PRN Reason: Anxiety Stop: 12/15/23 11:43 Promethazine HCl 12.5 mg/ (Sodium Chloride) 50.5 mls @ 202 mls/hr IV Q6H PRN PRN Reason: Nausea &/or Vomiting Stop: 12/15/23 11:43 Lorazepam 0.5 mg/ Syringe 0.5 mls @ 2 mls/min IV Q8H PRN; Protocol PRN Reason: Sedation/Anxiety Stop: 12/15/23 11:43 Lactated Ringer's (Lr) 1,000 mls @ 15 mls/hr IV .Q24H [facility] Stop: 12/21/23 09:44 Last Infusion: 11/21/23 10:55 Dose: Infused Influenza Virus Vaccine Quadrival (Do Not Administer Flu Vaccine) 1 each N/A PRN PRN PRN Reason: Notification Stop: 12/15/23 11:43 Levothyroxine Sodium (Levothyroxine Sodium 75 Mcg Tablet) 75 mcg PO QAM [facility] Stop: 12/16/23 08:59 Last Admin: 11/21/23 08:22 Dose: 75 mcg Linaclotide (Linaclotide 145 Mcg Capsule) 145 mcg PO DAILY [facility] Stop: 12/22/23 08:59 Lorazepam (Lorazepam 0.5 Mg Tab) 0.5 mg PO Q8H PRN PRN Reason: Sedation/Anxiety Stop: 12/15/23 11:43 Last Admin: 11/19/23 06:38 Dose: 0.5 mg Magnesium Hydroxide (Magnesium Hydroxide Susp 30 Ml Udc) 30 ml PO Q24H PRN PRN Reason: Constipation Stop: 12/15/23 11:43 Metoclopramide HCl (Metoclopramide Hcl Inj 5 Mg/Ml 2 Ml Vial) 10 mg IV Q6H PRN PRN Reason: Nausea &/or Vomiting Stop: 12/15/23 11:43 Naloxone HCl (Naloxone Hcl 0.4 Mg/1 Ml Vial/Carp) 0.1 mg IV Q5M PRN PRN Reason: Oversedation/Resp depression Stop: 12/15/23 11:43 Ondansetron HCl (Ondansetron Inj 2 Mg/Ml 2 Ml Vial) 4 mg IV Q6H PRN PRN Reason: Nausea &/or Vomiting Stop: 12/15/23 11:43 Ondansetron HCl (Ondansetron 4 Mg Od Tab) 4 mg PO Q6H PRN PRN Reason: Nausea Stop: 12/15/23 11:43 Oxycodone HCl (Oxycodone Hcl Ir 5 Mg Tab (Immediate Release)) 5 - 10 mg PO Q4H PRN PRN Reason: Pain & Pre PT Stop: 11/29/23 11:43 Last Admin: 11/21/23 08:52 Dose: 10 mg Pneumococcal Polyvalent Vaccine (Do Not Administer Pneumococcal Vaccine) 1 each N/A PRN PRN PRN Reason: Notification Stop: 12/15/23 11:43 Polyethylene Glycol (Polyethylene (Miralax) 17 Gm Pack) 17 gm PO Q6 [facility] Stop: 12/16/23 05:59 Last Admin: 11/21/23 13:45 Dose: Not Given Senna/Docusate Sodium (Docusate Sodium/Senna 50/8.6mg Tab) 2 tab PO HS [facility] Stop: 12/15/23 20:59 Last Admin: 11/20/23 20:16 Dose: Not Given Sodium Biphosphate/Sodium Phosphate (Sod Phosphate/Sod Biphosphate Enema 132 Ml Btl) 132 ml MI ONE PRN PRN Reason: Constipation Stop: 12/15/23 11:43 Tramadol HCl (Tramadol Hcl 50 Mg Tablet) 50 - 100 mg PO Q4H PRN PRN Reason: Moderate-Severe pain & Pre PT Stop: 12/15/23 11:43 Last Admin: 11/19/23 10:19 Dose: 100 mg
[2023-11-21] MEDS: bisacodyL 5 MG TABEC PO ONE (15:58)
[2023-11-22 06:49] LABS: Basophils # (auto) 0.01 K/uL (0.00-0.20); Basophils % (auto) 0.1 %; Hematocrit (blood only) 30.2 % (37.0-47.0); Hemoglobin 9.9 g/dl (12.0-16.0); Immature Granulocytes # (auto) 0.06 K/uL (0.01-0.20); Immature Granulocytes % (auto) 0.7 %; Lymphocytes # (auto) 1.73 K/uL (1.20-3.40); Lymphocytes % (auto) 19.2 %; Mean Corpuscular Hemoglobin 31.8 pg (25.0-34.0); Mean Corpuscular Hgb Conc 32.8 g/dL (32.0-36.0); Mean Corpuscular Volume 97.1 fL (80.0-100.0); Monocytes # (auto) 0.78 K/uL (0.11-0.59); Monocytes % (auto) 8.7 %; Neutrophils # (auto) 6.42 K/uL (1.40-6.50); Neutrophils % (auto) 71.3 %; Platelet Count 273 K/uL (130-400); RDW Standard Deviation 42.5 fL (36.4-46.3); Red Blood Count 3.11 M/uL (4.20-5.40)
[2023-11-22 07:08] LABS: Albumin Level 3.2 gm/dl (3.4-5.0); BUN Creatinine Ratio 18.2 (10-20); Bilirubin,Total 0.3 mg/dl (0.2-1.0); Calcium 8.6 mg/dl (8.6-10.3); Creatinine Clr Calc Pharmacy 64.6 ml/min; Est GFR (African American) 76.6 ml/min; Est GFR (Non-African American) 66.1 ml/min; Globulin 3.1 gm/dl (2.5-4.0); Potassium 4.4 mmol/L (3.5-5.1); Total Protein 6.3 gm/dl (6.0-8.3)
[2023-11-22] MEDS: BISOPROLOL FUMARATE 5 MG TAB PO SCH (08:17)
[2023-11-22] MEDS: LINACLOTIDE 145 MCG CAPSULE PO SCH (08:26)
--- NOTE | 2023-11-22 09:45 | Orthopedic Progress Note ---
Date of Service November 22, 2023 Assessment & Plan (1) Neurogenic claudication due to lumbar spinal stenosis: Plan: At this time she is responded appropriately from the evacuation of the seroma. Will continue with physical therapy monitor DARRYL output hopefully discharge home in the next few days. Admission and Anticipated Discharge Date Admission Date: November 15, 2023 Subjective Patient's pain is markedly improved. She has been up and ambulating. Physical Exam Physical Exam: Patient is in the chair at the bedside. Is good strength testing. Drain is functioning. Results & Data Vital Signs (Past 12 Hours) Vital Signs Temp Pulse Resp BP Pulse Ox O2 Del Method O2 Flow Rate 11/22/23 07:34 36.5 C 63 16 101/59 L 96 Nasal Cannula 2 11/22/23 03:27 36.6 C 73 18 112/64 96 Nasal Cannula 2 11/21/23 23:14 36.6 C 76 16 111/72 95 Nasal Cannula 2
[2023-11-22] MEDS: LINACLOTIDE 145 MCG CAPSULE PO STA (10:38)
--- NOTE | 2023-11-22 12:43 | Hospitalist Progress Note ---
Date of Service November 22, 2023 Assessment & Plan (1) Neurogenic claudication due to lumbar spinal stenosis: (2) History of stroke: (3) Hypertension: (4) Hypothyroidism: (5) Depression: Plan Ms. Vick is a 73 year old female that underwent an elective L3-S1 decompression and fusion surgery under the care of Dr. Mena after failed conservative treatment for back pain as an outpatient. Additional PMH includes: H/O CVA, fatty liver disease, HTN, hypothyroidism, and depression. Additionally patient has diagnosis of spontaneous CFS leaking diagnosed 2012. She has reportedly had 13 leaks that has received blood patch. She takes Diamox and potassium for this. She is here due to post operative seroma and underwent I and D on 11/20. Neurogenic claudication due to lumbar spinal stenosis: POD#7 s/p L3-S1 decompression and fusion surgery under the care of Dr. Mena. Had new RLE pain 6/ --> MR L spine w/ significant seroma collection, likely reason for new radicular symptoms --> for IandD 11/20 by orthospine. POD #1 S/P Incision and drainage of post operative seroma; EBL 10ml Per ortho for pain control, wound care, anticoagulation and activities. Monitor H&H, preop Hgb 13.2; will trend in AM Continue incentive spirometry. PT/OT when appropriate 11/22/23 Addendum nurse reached out around 1400 stating pt had episode of nausea and clamminess when sitting up working with O2. Her Oxygen sat was also noted to be 86-88% therefore she was placed on supplemental oxygen. Her nausea/clamminess resolved upon laying back. She received antiemetic. She was also started on some IVF, encouraged to drink fluids and use spirometry. Upon my eval she was comfy and in no distress. She reports from short of breath with exertion and lightheadedness but no chest pain. She denies cough or hemoptysis. CXR was negative. KUB showed moderate fecal retention. She is on linzess 290mcg, senna S 2 tabs at bed time. She has refused oral miralax. She received dulcolax 10mg x 1 today. Will trial tap water enema. Her Last BM was 5 days ago. Pt was also instructed to limit use of narcotics as much as able especially IV dilaudid as this will make hypoxia worse and not helping with constipation. Will also reduce dose of oxycodone to 5mg. 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 We will follow the patient with you during their hospital stay. You can reach a member of the [facility] Hospitalist Team 10/01 via hospitalist role on tiger text. A total of 65 minutes was spent coordinating, documenting, and providing care for this patient excluding time spent in the performance of separately billed services. This included personally viewing all current laboratories and imaging studies, medication reconciliation, outpatient chart review, and discussion with specialists. Admission and Anticipated Discharge Date Admission Date: November 15, 2023 Subjective Pt was seen and examined in room 320. F/U Lumbar surgery. She continue to have incisional pain, but much improved from pain relating to seroma. She denies f/c/s, chest pain, sob, n/v/d. Nurse states she was desaturating overnight, this may have been related to IV diluadid. Review of Systems Review of Systems: All systems reviewed & are unremarkable except as noted in HPI & below Physical Exam Physical Exam: Gen: WD/WN, NAD, A&O x3 HEENT: Normocephalic, atraumatic, conjunctivae moist, sclerae anicteric, mucous membranes moist. Lung: Clear to Auscultation bilaterally, no wheezes/rales/rhonchi Heart: Regular rate, regular rhythm, 2/6 AMARA LUSB, no rubs, or gallops Abdomen: Soft, NT, ND +BS x 4 Extremities: No edema, lumbar dressing CDI, DARRYL drain with sersosang drainage Skin: Warm, no rash, negative turgor. Results & Data Results & Data Vital Signs (Past 12 Hours) Vital Signs Temp Pulse Resp BP BP Pulse Ox O2 Del Method 11/22/23 11:17 36.5 C 78 16 110/62 93 Room Air 11/22/23 10:39 94 Room Air 11/22/23 09:39 94 11/22/23 07:45 Nasal Cannula 11/22/23 07:34 36.5 C 63 16 101/59 L 96 Nasal Cannula 11/22/23 03:27 36.6 C 73 18 112/64 96 Nasal Cannula O2 Flow Rate 11/22/23 11:17 11/22/23 10:39 11/22/23 09:39 11/22/23 07:45 2 11/22/23 07:34 2 11/22/23 03:27 2 Laboratory Results Short CBC 11/22/23 Range/Units 06:18 WBC 9.00 (4.8-10.8) K/ul Hgb 9.9 L (12.0-16.0) g/dl Hct 30.2 L (37.0-47.0) % Plt Count 273 (130-400) K/uL BMP 11/22/23 06:18 Sodium 138 Potassium 4.4 Chloride 104 Carbon Dioxide 28 BUN 16 Creatinine 0.88 Glucose 125 H Calcium 8.6 Liver Function 11/22/23 Range/Units 06:18 Total Bilirubin 0.3 (0.2-1.0) mg/dl AST 32 (13-39) U/L ALT 17 (7-52) U/L Alkaline Phosphatase 47 (34-104) U/L Albumin 3.2 L (3.4-5.0) gm/dl Medications Administered Current Inpatient Medications Acetaminophen (Acetaminophen 500 Mg Tab) 1,000 mg PO Q8H PRN PRN Reason: MILD Pain Scale 1,2,3 & Pre PT Stop: 12/15/23 11:43 Last Admin: 11/19/23 00:35 Dose: 1,000 mg Al Hydrox/Mg Hydrox/Simethicone (Aluminum/Magnesium Susp 30 Ml Udc) 30 ml PO Q6H PRN PRN Reason: Dyspepsia Stop: 12/15/23 11:43 Albuterol (Albuterol 0.083% Nebu Soln 3 Ml Vial) 1.25 mg INH QID PRN PRN Reason: Shortness Of Breath Stop: 12/15/23 11:50 Albuterol (Albuterol Hfa 8 Gm Inhaler) 1 puffs INH QID PRN PRN Reason: Shortness Of Breath Stop: 12/15/23 11:43 Aspirin (Aspirin 81 Mg Ectab) 81 mg PO QAM [facility] Stop: 12/16/23 08:59 Last Admin: 11/22/23 08:26 Dose: 81 mg Bisacodyl (Bisacodyl 10 Mg Supp) 10 mg NH DAILY PRN PRN Reason: Constipation Stop: 12/15/23 11:43 Bisoprolol Fumarate (Bisoprolol Fumarate 5 Mg Tab) 5 mg PO DAILY [facility] Stop: 12/22/23 08:59 Last Admin: 11/22/23 08:17 Dose: Not Given Citalopram Hydrobromide (Citalopram 20 Mg Tab) 20 mg PO QAM [facility] Stop: 12/16/23 08:59 Last Admin: 11/22/23 08:26 Dose: 20 mg Cyclobenzaprine HCl (Cyclobenzaprine Hcl 5 Mg Tab) 5 mg PO BID PRN PRN Reason: spasms, pain Stop: 12/19/23 08:59 Last Admin: 11/21/23 04:54 Dose: 5 mg Diazepam (Diazepam 5 Mg Tablet) 5 mg PO BID PRN PRN Reason: Muscle Spasm Stop: 12/19/23 10:17 Last Admin: 11/20/23 19:19 Dose: 5 mg Diphenhydramine HCl (Diphenhydramine Capsule 25 Mg Cap) 25 mg PO Q6H PRN PRN Reason: Allergic Rhinitis/Insomnia Stop: 12/15/23 11:43 Estradiol (Estradiol 1 Mg Tab) 2 mg PO QAM [facility] Stop: 12/16/23 08:59 Last Admin: 11/22/23 08:26 Dose: 2 mg Famotidine (Famotidine 20 Mg Tab) 20 mg PO Q12H PRN PRN Reason: Dyspepsia Stop: 12/15/23 11:43 Fenofibrate (Fenofibrate Nanocrystallized 145 Mg Tablet) 145 mg PO [facility] Stop: 12/16/23 08:59 Last Admin: 11/22/23 08:26 Dose: 145 mg Fluticasone/Vilanterol (Fluticasone/Vilanterol 200/25mcg 14 Puffs/Inhaler) 1 puffs INH DAILY PRN PRN Reason: sob/wheezing Stop: 12/15/23 12:08 Gabapentin (Gabapentin 300 Mg Cap) 300 mg PO [facility] Stop: 12/16/23 08:59 Last Admin: 11/22/23 08:26 Dose: 300 mg Hydromorphone HCl (Hydromorphone Inj 0.5 Mg/0.5 Ml Syr) 0.5 mg IV Q3H PRN PRN Reason: MODERATE Pain (Scale 4,5,6) & Pre PT Stop: 11/29/23 11:43 Last Admin: 11/21/23 06:24 Dose: 0.5 mg Hydromorphone HCl (Hydromorphone Inj 1 Mg/Ml Syringe) 1 mg IV Q3H PRN PRN Reason: SEVERE Pain (Scale 7,8,9,10) Stop: 11/29/23 11:43 Last Admin: 11/22/23 10:37 Dose: 1 mg Hydroxyzine HCl (Hydroxyzine Hcl 25 Mg Tab) 25 mg PO Q8H PRN PRN Reason: Anxiety Stop: 12/15/23 11:43 Promethazine HCl 12.5 mg/ (Sodium Chloride) 50.5 mls @ 202 mls/hr IV Q6H PRN PRN Reason: Nausea &/or Vomiting Stop: 12/15/23 11:43 Lorazepam 0.5 mg/ Syringe 0.5 mls @ 2 mls/min IV Q8H PRN; Protocol PRN Reason: Sedation/Anxiety Stop: 12/15/23 11:43 Lactated Ringer's (Lr) 1,000 mls @ 15 mls/hr IV .Q24H [facility] Stop: 12/21/23 09:44 Last Admin: 11/22/23 08:34 Dose: Not Given Influenza Virus Vaccine Quadrival (Do Not Administer Flu Vaccine) 1 each N/A PRN PRN PRN Reason: Notification Stop: 12/15/23 11:43 Levothyroxine Sodium (Levothyroxine Sodium 75 Mcg Tablet) 75 mcg PO QAM [facility] Stop: 12/16/23 08:59 Last Admin: 11/22/23 08:26 Dose: 75 mcg Linaclotide (Linaclotide 145 Mcg Capsule) 290 mcg PO DAILY [facility] Stop: 12/23/23 08:59 Lorazepam (Lorazepam 0.5 Mg Tab) 0.5 mg PO Q8H PRN PRN Reason: Sedation/Anxiety Stop: 12/15/23 11:43 Last Admin: 11/19/23 06:38 Dose: 0.5 mg Magnesium Hydroxide (Magnesium Hydroxide Susp 30 Ml Udc) 30 ml PO Q24H PRN PRN Reason: Constipation Stop: 12/15/23 11:43 Metoclopramide HCl (Metoclopramide Hcl Inj 5 Mg/Ml 2 Ml Vial) 10 mg IV Q6H PRN PRN Reason: Nausea &/or Vomiting Stop: 12/15/23 11:43 Naloxone HCl (Naloxone Hcl 0.4 Mg/1 Ml Vial/Carp) 0.1 mg IV Q5M PRN PRN Reason: Oversedation/Resp depression Stop: 12/15/23 11:43 Ondansetron HCl (Ondansetron Inj 2 Mg/Ml 2 Ml Vial) 4 mg IV Q6H PRN PRN Reason: Nausea &/or Vomiting Stop: 12/15/23 11:43 Ondansetron HCl (Ondansetron 4 Mg Od Tab) 4 mg PO Q6H PRN PRN Reason: Nausea Stop: 12/15/23 11:43 Oxycodone HCl (Oxycodone Hcl Ir 5 Mg Tab (Immediate Release)) 5 - 10 mg PO Q4H PRN PRN Reason: Pain & Pre PT Stop: 11/29/23 11:43 Last Admin: 11/22/23 08:25 Dose: 10 mg Pneumococcal Polyvalent Vaccine (Do Not Administer Pneumococcal Vaccine) 1 each N/A PRN PRN PRN Reason: Notification Stop: 12/15/23 11:43 Polyethylene Glycol (Polyethylene (Miralax) 17 Gm Pack) 17 gm PO Q6 [facility] Stop: 12/16/23 05:59 Last Admin: 11/22/23 11:38 Dose: Not Given Senna/Docusate Sodium (Docusate Sodium/Senna 50/8.6mg Tab) 2 tab PO HS [facility] Stop: 12/15/23 20:59 Last Admin: 11/21/23 21:23 Dose: 2 tab Sodium Biphosphate/Sodium Phosphate (Sod Phosphate/Sod Biphosphate Enema 132 Ml Btl) 132 ml NH ONE PRN PRN Reason: Constipation Stop: 12/15/23 11:43 Tramadol HCl (Tramadol Hcl 50 Mg Tablet) 50 - 100 mg PO Q4H PRN PRN Reason: Moderate-Severe pain & Pre PT Stop: 12/15/23 11:43 Last Admin: 11/19/23 10:19 Dose: 100 mg
[2023-11-22] MEDS: bisacodyL 5 MG TABEC PO ONE (13:02)
[2023-11-22] MEDS: ONDANSETRON INJ 2 MG/ML 2 ML VIAL IV PRN (13:53)
[2023-11-22] MEDS: SODIUM CHLORIDE 0.9% 500 ML IV SCH (14:09)
--- NOTE | 2023-11-22 14:59 | XRay Report ---
KUB HISTORY: constipation COMPARISON: None. FINDINGS: The bowel gas pattern is unremarkable. There are no dilated loops of small bowel to suggest an obstruction. No renal calculi. No ureteral calculi. No pneumoperitoneum or pneumatosis. Lumbar s louis fusion hardware is noted. Moderate fecal retention. There is a surgical drain at the laminectom y site. IMPRESSION: 1. Nonobstructive bowel gas pattern. 2. Moderate fecal retention. ACT 112: Negative or not required by law. Electronically signed by: Randy Mclain M.D. 11/22/2023 2:58 PM
--- NOTE | 2023-11-22 15:14 | XRay Report ---
SINGLE VIEW CHEST CLINICAL HISTORY: Hypoxia FINDINGS: An AP, portable, upright chest radiograph is compared to study dated 11/07/2023. The heart i s enlarged. The pulmonary vasculature is noncongested. There is bibasilar scarring/atelectasis. The l ungs and pleural spaces are otherwise clear. No pneumothorax is seen. The skeletal structures are ost eopenic. The bony thorax is grossly intact. IMPRESSION: Cardiomegaly with no active disease in the chest. ACT 112: Negative or not required by law. Electronically signed by: Jaycob Wright M.D. 11/22/2023 3:13 PM
--- NOTE | 2023-11-22 17:02 | Ultrasound Report ---
BILATERAL LOWER EXTREMITY VENOUS DOPPLER HISTORY: Leg swelling. r/o dvt COMPARISON STUDY: None. FINDINGS: There is normal compressibility, flow, and augmentation within the bilateral lower extremit y deep venous systems. IMPRESSION: No DVT within the right or left lower extremity. ACT 112: Negative or not required by law. Electronically signed by: Randy Mclain M.D. 11/22/2023 5:01 PM
[2023-11-22] MEDS: MAGNESIUM HYDROXIDE SUSP 30 ML UDC PO PRN (18:35)
[2023-11-23] MEDS: oxyCODONE HCL IR 5 MG TAB (IMMEDIATE RELEASE) PO PRN (03:47)
--- NOTE | 2023-11-23 09:27 | Orthopedic Progress Note ---
Date of Service November 23, 2023 Assessment & Plan (1) Neurogenic claudication due to lumbar spinal stenosis: Plan: At this time continue physical therapy monitor DARRYL output anticipate discharge home tomorrow. We may consider discharge with her drain in place for follow-up in the office later this week. Admission and Anticipated Discharge Date Admission Date: November 15, 2023 Subjective Patient's back pain is controlled leg symptoms markedly improved. She is tolerating ambulation. Physical Exam Physical Exam: Patient is seen with bedside. She is comfortable. Discussed when to testing. Results & Data Vital Signs (Past 12 Hours) Vital Signs Temp Pulse Resp BP Pulse Ox O2 Del Method 11/23/23 08:31 36.6 C 68 20 108/78 93 Room Air
[2023-11-23] MEDS: LINACLOTIDE 145 MCG CAPSULE PO SCH (09:43)
--- NOTE | 2023-11-23 11:02 | Nuclear Medicine Report ---
NM pul perfusion CLINICAL HISTORY: hypoxia. COMPARISON STUDY: Chest CT 11/23/2023. TECHNIQUE: Immediately following the intravenous administration of 4.8 mCi of technetium 99 M MAA for the perfusion scan, anterior, oblique, lateral, and posterior views of the chest were obtained. The ventilation scan was not performed due to coronavirus protocols. FINDINGS: Multiple large segmental perfusion defects seen within the right upper lobe and left lower lobe. IMPRESSION: Above findings are consistent with a high probability scan. ACT 112: Negative or not required by law. Electronically signed by: Randy Mclain M.D. 11/23/2023 10:59 AM
--- NOTE | 2023-11-23 11:22 | CT Scan Report ---
CT chest diagnostic wo con CT DOSE: 575.71 mGy.cm CLINICAL HISTORY: 73 years-old Female with hypoxia, sob. Acute hypoxia with shortness of breath TECHNIQUE: Multiaxial CT images of the chest were performed without contrast. A dose lowering techni que was utilized adhering to the principles of ALARA. COMPARISON: Perfusion study of same day, flex venous Doppler chest radiograph studies 11/22/2023 FINDINGS: Moderate cardiomegaly. No pericardial effusion. No thoracic aortic aneurysm. Ill-defined in creased attenuation noted within the lobar, segmental and subsegmental branches of the left upper lob e and also possibly within the left lower lobe. Unremarkable thyroid. There is no lymphadenopathy. Tr andra right pleural effusion. No pneumothorax. Mild subsegmental bibasilar atelectasis. Minimal pleural parenchymal scarring at the lung apices. No suspicious pulmonary nodules or masses. No pulmonary inf arct. Ill-defined patchy groundglass densities throughout the right lung, notably within the right up per lobe. No acute upper abdominal abnormality. Mild nonspecific distal esophageal wall thickening. Soft tissue s are within normal limits. No acute fracture. IMPRESSION: 1. Increased attenuation involving branches of the pulmonary artery, notably within the left lung. Th is finding in conjunction with the high probability perfusion study obtained same day is compatible w ith pulmonary emboli. 2. Cardiomegaly without overt pulmonary edema. 3. Trace right pleural effusion. 4. Mild nonspecific subsegmental groundglass densities of the right upper lobe may be atelectatic or represent a mild infectious or inflammatory process. 5. No lymphadenopathy. ACT 112: Negative or not required by law. Electronically signed by: Juan J Uribe M.D. 11/23/2023 11:20 AM
[2023-11-23] MEDS: LACTULOSE SYRUP 20 GM/30 ML UDC PO SCH (12:02)
[2023-11-23 12:29] LABS: Hematocrit (blood only) 31.2 % (37.0-47.0); Hemoglobin 9.9 g/dl (12.0-16.0); Mean Corpuscular Hemoglobin 31.5 pg (25.0-34.0); Mean Corpuscular Hgb Conc 31.7 g/dL (32.0-36.0); Mean Corpuscular Volume 99.4 fL (80.0-100.0); Mean Platelet Volume 9.9 fL (9.4-12.4); Platelet Count 300 K/uL (130-400); RDW Coefficient of Variation 12.4 % (11.5-14.5); RDW Standard Deviation 45.2 fL (36.4-46.3); Red Blood Count 3.14 M/uL (4.20-5.40); White Blood Count 10.58 K/ul (4.8-10.8)
[2023-11-23 12:34] LABS: Albumin Globulin Ratio 1.2 (0.9-2); Albumin Level 3.3 gm/dl (3.4-5.0); BUN Creatinine Ratio 17.3 (10-20); Bilirubin,Total 0.4 mg/dl (0.2-1.0); Calcium 8.8 mg/dl (8.6-10.3); Creatinine Clr Calc Pharmacy 54.7 ml/min; Est GFR (African American) 62.6 ml/min; Globulin 2.8 gm/dl (2.5-4.0); Potassium 3.7 mmol/L (3.5-5.1); Total Protein 6.1 gm/dl (6.0-8.3)
[2023-11-23] MEDS ORDERED: Heparin IV Adult Wt-Based Standard *NO* INITIAL Bolus Protocol IV SCH (12:35)
[2023-11-23 12:41] LABS: ANTI-Xa, UFH(UnfractionatedHep < 0.10 IU/ml (0.3-0.7); Partial Thromboplastin Ratio 0.9; Partial Thromboplastin Time 23 Seconds (21-31); Prothrombin Time 10.9 Seconds (9.0-12.0)
--- NOTE | 2023-11-23 13:42 | Hospitalist Progress Note ---
Date of Service November 23, 2023 Assessment & Plan (1) Neurogenic claudication due to lumbar spinal stenosis: (2) Bilateral pulmonary embolism: (3) Hypoxia: (4) History of stroke: (5) Hypertension: (6) Hypothyroidism: (7) Depression: Plan Ms. Vick is a 73 year old female that underwent an elective L3-S1 decompression and fusion surgery under the care of Dr. Mena after failed conservative treatment for back pain as an outpatient. Additional PMH includes: H/O CVA, fatty liver disease, HTN, hypothyroidism, and depression. Additionally patient has diagnosis of spontaneous CFS leaking diagnosed 2012. She has reportedly had 13 leaks that has received blood patch. She takes Diamox and potassium for this. She is here due to post operative seroma and underwent I and D on 11/20. Neurogenic claudication due to lumbar spinal stenosis: POD#8 s/p L3-S1 decompression and fusion surgery under the care of Dr. Mena. Had new RLE pain 6/ --> MR L spine w/ significant seroma collection, likely reason for new radicular symptoms --> for IandD 6 by orthospine. POD #2 S/P Incision and drainage of post operative seroma; EBL 10ml Per ortho for pain control, wound care, anticoagulation and activities. Monitor H&H, preop Hgb 13.2; will trend in AM Continue incentive spirometry. PT/OT when appropriate Hypoxia Bilateral Pulmonary Embolism on 11/21 with with episode of nausea, clamminess, lightheaded, and c/o EDOUARD. She continued to require oxygen Oxygen requirements were not compatible with co administration of IV narcotics CXR w/o acute abnormality Unable to perform Chest CTA due to allergy and pt reports allergy despite pre treatment in the past remains on 2L --V/Q scan : Multiple large segmental perfusion defects seen within the right upper lobe and left lower lobe.IMPRESSION: Above findings are consistent with a high probability scan. --Chest CT:increased attenuation involving branches of the pulmonary artery, notably within the left lung. This finding in conjunction with the high probability perfusion study obtained same day is compatible with pulmonary emboli.2. Cardiomegaly without overt pulmonary edema.3. Trace right pleural effusion.4. Mild nonspecific subsegmental groundglass densities of the right upper lobe may be atelectatic or represent a mild infectious or inflammatory process.5. No lymphadenopathy. ---bilateral venous dopplers negative Discussed with orthospine Dr. Mena who is amenable to initiating IV heparin, will need close monitoring in hospital for a few days to ensure stability CBC, BMP ordered and independently reviewed and interpreted by myself, hgb stable Initiate IV heparin with anticipation to start doac in near future Acute blood loss anemia as cause of post operative anemia pre op hgb 13.2, post op 9.9 and stable no indication for transfusion at this time hgb remains stable, will need to monitor closely with starting anticoag Post operative constipation Pt refusing miralax increase linzess to 290 daily, continue senna s 11/21 no relief with dulcolax, tap water enema, milk of mag 11/22 will give milk of molasses enema, lactulose BID 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 - treated at [facility] in [place] Per patient "treats me like a stroke when it happens" no problems since the blood patch/leaks have been patched with surgical glue HTN: Chronic Takes Bisoprolol Bisoprolol held on 11/21 and 11/22 due to bp on softer side Hypothyroidism: Chronic Takes levothyroxine;continue Depression: Chronic Takes Celexa;continue Disposition: PCP: Fernando Buckner Code Status: Full code VTE Prophylaxis: Teds and SCDs for now per admitting team Transfer pt to [facility] for closer monitoring while starting on IV heparin for PE, anticipate pt to remain hospitalized for a few more days to monitor to any bleeding as result of IV heparin initiation and then eventual transition to DOAC Thank you for this consultation. We will follow the patient with you during their hospital stay. You can reach a member of the [facility] Hospitalist Team 10/01 via hospitalist role on tiger text. A total of 70 minutes was spent coordinating, documenting, and providing care for this patient excluding time spent in the performance of separately billed services. This included personally viewing all current laboratories and imaging studies, medication reconciliation, outpatient chart review, and discussion with specialists. Admission and Anticipated Discharge Date Admission Date: November 15, 2023 Supervising Physician Co-Signing Physician Notes Patient seen and examined. Reports dizziness and shortness of breath with activity. Denies chest pain. Still has constipation. Reports surgical site pain is well-controlled. Exam notable for clean dressing over surgical site with drain in situ. Chest is clear to auscultation. On nasal cannula. Chest CT without contrast noted increased attenuation involving branches of the pulmonary artery actively within the left lung. Pulmonary perfusion imaging study today noted multiple large segmental perfusion defects seen within the right upper lobe and left lower lobe. These findings suggest PE. Cannot do CT with contrast due to contrast allergy and patient reported that even pretreatment in the past had not worked. Discussed findings with patient. She is agreeable to anticoagulation. We discussed risk of hematoma at surgical site. Advanced provider discussed with Dr. Mena who was okay with anticoagulation. Start heparin drip without bolus and monitor for bleeding and any signs of hematoma surgical site. Transfer patient to med/tele for closer monitoring. Get TTE. Agree with other plans as detailed by advanced practitioner and take full responsibility I spent a total of 35 minutes coordinating, documenting and providing care for this patient excluding time spent in performance of separately billed services Subjective Patient was seen and examined in room 320. F/U Lumbar surgery, s/p seroma with I and D, constipation and hypoxia. He denies f/c/s, chest pain, sob, n/v/d. She still has not moved her bowels despite aggressive efforts. She denies further feelings of SOB, dizziness or nausea. She was up and moving already this morning. She continues to be intermittently hypoxic despite incentive spirometry and attempts to wean off. Review of Systems Review of Systems: All systems reviewed & are unremarkable except as noted in HPI & below Physical Exam Physical Exam: Gen: WD/WN, NAD, A&O x3 HEENT: Normocephalic, atraumatic, conjunctivae moist, sclerae anicteric, mucous membranes moist. Lung: Clear to Auscultation bilaterally, no wheezes/rales/rhonchi on O2 via NC Heart: Regular rate, regular rhythm, 2/6 AMARA LUSB, no rubs, or gallops Abdomen: Soft, NT, distended, hypoactive bS x 4 Extremities: No edema, lumbar dressing CDI, DARRYL drain with sersosang drainage Skin: Warm, no rash, negative turgor. Results & Data Results & Data Vital Signs (Past 12 Hours) Vital Signs Temp Pulse Resp BP Pulse Ox O2 Del Method 11/23/23 08:31 36.6 C 68 20 108/78 93 Room Air Laboratory Results Short CBC 11/23/23 Range/Units 11:47 WBC 10.58 (4.8-10.8) K/ul Hgb 9.9 L (12.0-16.0) g/dl Hct 31.2 L (37.0-47.0) % Plt Count 300 (130-400) K/uL BMP 11/23/23 11:47 Sodium 139 Potassium 3.7 Chloride 103 Carbon Dioxide 30 BUN 18 Creatinine 1.04 Glucose 88 Calcium 8.8 Liver Function 11/23/23 Range/Units 11:47 Total Bilirubin 0.4 (0.2-1.0) mg/dl AST 27 (13-39) U/L ALT 16 (7-52) U/L Alkaline Phosphatase 52 (34-104) U/L Albumin 3.3 L (3.4-5.0) gm/dl Diagnostic Findings Chest CT 11/23/23 10:00 CT chest diagnostic wo con CT DOSE: 575.71 mGy.cm CLINICAL HISTORY: 73 years-old Female with hypoxia, sob. Acute hypoxia with shortness of breath TECHNIQUE: Multiaxial CT images of the chest were performed without contrast. A dose lowering technique was utilized adhering to the principles of ALARA. COMPARISON: Perfusion study of same day, flex venous Doppler chest radiograph studies 11/22/2023 FINDINGS: Moderate cardiomegaly. No pericardial effusion. No thoracic aortic aneurysm. Ill-defined increased attenuation noted within the lobar, segmental and subsegmental branches of the left upper lobe and also possibly within the left lower lobe. Unremarkable thyroid. There is no lymphadenopathy. Trace right pleural effusion. No pneumothorax. Mild subsegmental bibasilar atelectasis. Minimal pleural parenchymal scarring at the lung apices. No suspicious pulmonary nodules or masses. No pulmonary infarct. Ill-defined patchy groundglass densities throughout the right lung, notably within the right upper lobe. No acute upper abdominal abnormality. Mild nonspecific distal esophageal wall thickening. Soft tissues are within normal limits. No acute fracture. IMPRESSION: 1. Increased attenuation involving branches of the pulmonary artery, notably within the left lung. This finding in conjunction with the high probability perfusion study obtained same day is compatible with pulmonary emboli. 2. Cardiomegaly without overt pulmonary edema. 3. Trace right pleural effusion. 4. Mild nonspecific subsegmental groundglass densities of the right upper lobe may be atelectatic or represent a mild infectious or inflammatory process. 5. No lymphadenopathy. ACT 112: Negative or not required by law. Electronically signed by: Juan J Uribe M.D. 11/23/2023 11:20 AM Pulmonary Perfusion Imaging 11/23/23 15:34 NM pul perfusion CLINICAL HISTORY: hypoxia. COMPARISON STUDY: Chest CT 11/23/2023. TECHNIQUE: Immediately following the intravenous administration of 4.8 mCi of technetium 99 M MAA for the perfusion scan, anterior, oblique, lateral, and posterior views of the chest were obtained. The ventilation scan was not performed due to coronavirus protocols. FINDINGS: Multiple large segmental perfusion defects seen within the right upper lobe and left lower lobe. IMPRESSION: Above findings are consistent with a high probability scan. ACT 112: Negative or not required by law. Electronically signed by: Randy Mclain M.D. 11/23/2023 10:59 AM Medications Administered Current Inpatient Medications Acetaminophen (Acetaminophen 500 Mg Tab) 1,000 mg PO Q8H PRN PRN Reason: MILD Pain Scale 1,2,3 & Pre PT Stop: 12/15/23 11:43 Last Admin: 11/22/23 20:59 Dose: 1,000 mg Al Hydrox/Mg Hydrox/Simethicone (Aluminum/Magnesium Susp 30 Ml Udc) 30 ml PO Q6H PRN PRN Reason: Dyspepsia Stop: 12/15/23 11:43 Albuterol (Albuterol 0.083% Nebu Soln 3 Ml Vial) 1.25 mg INH QID PRN PRN Reason: Shortness Of Breath Stop: 12/15/23 11:50 Albuterol (Albuterol Hfa 8 Gm Inhaler) 1 puffs INH QID PRN PRN Reason: Shortness Of Breath Stop: 12/15/23 11:43 Aspirin (Aspirin 81 Mg Ectab) 81 mg PO QAM CORI Stop: 12/16/23 08:59 Last Admin: 11/23/23 09:43 Dose: 81 mg Bisacodyl (Bisacodyl 10 Mg Supp) 10 mg MT DAILY PRN PRN Reason: Constipation Stop: 12/15/23 11:43 Bisoprolol Fumarate (Bisoprolol Fumarate 5 Mg Tab) 5 mg PO DAILY CORI Stop: 12/22/23 08:59 Last Admin: 11/23/23 09:45 Dose: Not Given Citalopram Hydrobromide (Citalopram 20 Mg Tab) 20 mg PO [facility] Stop: 12/16/23 08:59 Last Admin: 11/23/23 09:43 Dose: 20 mg Cyclobenzaprine HCl (Cyclobenzaprine Hcl 5 Mg Tab) 5 mg PO BID PRN PRN Reason: spasms, pain Stop: 12/19/23 08:59 Last Admin: 11/21/23 04:54 Dose: 5 mg Diazepam (Diazepam 5 Mg Tablet) 5 mg PO BID PRN PRN Reason: Muscle Spasm Stop: 12/19/23 10:17 Last Admin: 11/20/23 19:19 Dose: 5 mg Diphenhydramine HCl (Diphenhydramine Capsule 25 Mg Cap) 25 mg PO Q6H PRN PRN Reason: Allergic Rhinitis/Insomnia Stop: 12/15/23 11:43 Estradiol (Estradiol 1 Mg Tab) 2 mg PO [facility] Stop: 12/16/23 08:59 Last Admin: 11/23/23 09:42 Dose: 2 mg Famotidine (Famotidine 20 Mg Tab) 20 mg PO Q12H PRN PRN Reason: Dyspepsia Stop: 12/15/23 11:43 Fenofibrate (Fenofibrate Nanocrystallized 145 Mg Tablet) 145 mg PO [facility] Stop: 12/16/23 08:59 Last Admin: 11/23/23 09:42 Dose: 145 mg Fluticasone/Vilanterol (Fluticasone/Vilanterol 200/25mcg 14 Puffs/Inhaler) 1 puffs INH DAILY PRN PRN Reason: sob/wheezing Stop: 12/15/23 12:08 Gabapentin (Gabapentin 300 Mg Cap) 300 mg PO [facility] Stop: 12/16/23 08:59 Last Admin: 11/23/23 09:42 Dose: 300 mg Hydromorphone HCl (Hydromorphone Inj 0.5 Mg/0.5 Ml Syr) 0.5 mg IV Q3H PRN PRN Reason: MODERATE Pain (Scale 4,5,6) & Pre PT Stop: 11/29/23 11:43 Last Admin: 11/23/23 12:03 Dose: 0.5 mg Hydromorphone HCl (Hydromorphone Inj 1 Mg/Ml Syringe) 1 mg IV Q3H PRN PRN Reason: SEVERE Pain (Scale 7,8,9,10) Stop: 11/29/23 11:43 Last Admin: 11/22/23 10:37 Dose: 1 mg Hydroxyzine HCl (Hydroxyzine Hcl 25 Mg Tab) 25 mg PO Q8H PRN PRN Reason: Anxiety Stop: 12/15/23 11:43 Promethazine HCl 12.5 mg/ (Sodium Chloride) 50.5 mls @ 202 mls/hr IV Q6H PRN PRN Reason: Nausea &/or Vomiting Stop: 12/15/23 11:43 Lorazepam 0.5 mg/ Syringe 0.5 mls @ 2 mls/min IV Q8H PRN; Protocol PRN Reason: Sedation/Anxiety Stop: 12/15/23 11:43 Lactated Ringer's (Lr) 1,000 mls @ 15 mls/hr IV .Q24H [facility] Stop: 12/21/23 09:44 Last Admin: 11/23/23 09:33 Dose: Not Given Heparin Sodium/Dextrose (Heparin Sodium/Dextrose) 25,000 units in 500 mls @ 25 mls/hr IV .Q20H [facility]; Protocol Stop: 12/23/23 12:59 Influenza Virus Vaccine Quadrival (Do Not Administer Flu Vaccine) 1 each N/A PRN PRN PRN Reason: Notification Stop: 12/15/23 11:43 Lactulose (Lactulose Syrup 20 Gm/30 Ml Udc) 20 gm PO BID [facility] Stop: 12/23/23 11:29 Last Admin: 11/23/23 12:02 Dose: 20 gm Levothyroxine Sodium (Levothyroxine Sodium 75 Mcg Tablet) 75 mcg PO QAM [facility] Stop: 12/16/23 08:59 Last Admin: 11/23/23 09:41 Dose: 75 mcg Linaclotide (Linaclotide 145 Mcg Capsule) 290 mcg PO DAILY [facility] Stop: 12/23/23 08:59 Last Admin: 11/23/23 09:43 Dose: 290 mcg Lorazepam (Lorazepam 0.5 Mg Tab) 0.5 mg PO Q8H PRN PRN Reason: Sedation/Anxiety Stop: 12/15/23 11:43 Last Admin: 11/19/23 06:38 Dose: 0.5 mg Magnesium Hydroxide (Magnesium Hydroxide Susp 30 Ml Udc) 30 ml PO Q24H PRN PRN Reason: Constipation Stop: 12/15/23 11:43 Last Admin: 11/22/23 18:35 Dose: 30 ml Metoclopramide HCl (Metoclopramide Hcl Inj 5 Mg/Ml 2 Ml Vial) 10 mg IV Q6H PRN PRN Reason: Nausea &/or Vomiting Stop: 12/15/23 11:43 Naloxone HCl (Naloxone Hcl 0.4 Mg/1 Ml Vial/Carp) 0.1 mg IV Q5M PRN PRN Reason: Oversedation/Resp depression Stop: 12/15/23 11:43 Ondansetron HCl (Ondansetron Inj 2 Mg/Ml 2 Ml Vial) 4 mg IV Q6H PRN PRN Reason: Nausea &/or Vomiting Stop: 12/15/23 11:43 Last Admin: 11/22/23 13:53 Dose: 4 mg Ondansetron HCl (Ondansetron 4 Mg Od Tab) 4 mg PO Q6H PRN PRN Reason: Nausea Stop: 12/15/23 11:43 Oxycodone HCl (Oxycodone Hcl Ir 5 Mg Tab (Immediate Release)) 5 mg PO Q4H PRN PRN Reason: Mod-Sev Pain (Scale 4-10) Stop: 11/29/23 11:43 Last Admin: 11/23/23 09:41 Dose: 5 mg Pneumococcal Polyvalent Vaccine (Do Not Administer Pneumococcal Vaccine) 1 each N/A PRN PRN PRN Reason: Notification Stop: 12/15/23 11:43 Polyethylene Glycol (Polyethylene (Miralax) 17 Gm Pack) 17 gm PO Q6 CORI Stop: 12/16/23 05:59 Last Admin: 11/23/23 11:41 Dose: Not Given Senna/Docusate Sodium (Docusate Sodium/Senna 50/8.6mg Tab) 2 tab PO HS CORI Stop: 12/15/23 20:59 Last Admin: 11/22/23 20:56 Dose: 2 tab Sodium Biphosphate/Sodium Phosphate (Sod Phosphate/Sod Biphosphate Enema 132 Ml Btl) 132 ml MT ONE PRN PRN Reason: Constipation Stop: 12/15/23 11:43 Tramadol HCl (Tramadol Hcl 50 Mg Tablet) 50 - 100 mg PO Q4H PRN PRN Reason: Moderate-Severe pain & Pre PT Stop: 12/15/23 11:43 Last Admin: 11/19/23 10:19 Dose: 100 mg
[2023-11-23 14:09] LABS: Basophils # (auto) 0.05 K/uL (0.00-0.20); Basophils % (auto) 0.5 %; Eosinophils # (auto) 0.24 K/uL (0.00-0.50); Eosinophils % (auto) 2.3 %; Immature Granulocytes # (auto) 0.08 K/uL (0.01-0.20); Immature Granulocytes % (auto) 0.8 %; Lymphocytes # (auto) 3.33 K/uL (1.20-3.40); Lymphocytes % (auto) 31.5 %; Monocytes # (auto) 1.03 K/uL (0.11-0.59); Monocytes % (auto) 9.8 %; Neutrophils # (auto) 5.83 K/uL (1.40-6.50); Neutrophils % (auto) 55.1 %
[2023-11-23] MEDS: HEPARIN SODIUM/DEXTROSE 25,000 UNITS/500 ML BAG IV SCH (14:25)
[2023-11-23 22:02] LABS: ANTI-Xa, UFH(UnfractionatedHep 0.35 IU/ml (0.3-0.7)
[2023-11-24 07:13] LABS: ANTI-Xa, UFH(UnfractionatedHep 0.49 IU/ml (0.3-0.7)
--- NOTE | 2023-11-24 08:15 | Orthopedic Progress Note ---
Date of Service November 24, 2023 Assessment & Plan (1) Neurogenic claudication due to lumbar spinal stenosis: Plan: At this time we will continue to encourage physical therapy as tolerated. She we will maintain the drains that she has initiated a heparin protocol. Will see how she progresses over the course of the next several days hopefully she will be able to discharge home on oral anticoagulation. Admission and Anticipated Discharge Date Admission Date: November 15, 2023 Subjective Back pain well-controlled. Leg pain markedly improved. She denies any shortness of breath this morning. She is quite comfortable. Physical Exam Physical Exam: Patient is in the chair at the bedside. She is good strength testing. DARRYL drain is functioning. Results & Data Vital Signs (Past 12 Hours) Vital Signs Temp Pulse Pulse Pulse Resp BP Pulse Ox 11/24/23 03:06 36.9 C 74 18 121/73 90 11/23/23 23:15 36.7 C 75 18 133/72 90 11/23/23 22:54 73 11/23/23 20:15 O2 Del Method O2 Flow Rate 11/24/23 03:06 Nasal Cannula 3 11/23/23 23:15 Nasal Cannula 3 11/23/23 22:54 11/23/23 20:15 Nasal Cannula 2
[2023-11-24 10:00] LABS: Hematocrit (blood only) 29.7 % (37.0-47.0); Hemoglobin 9.8 g/dl (12.0-16.0); Mean Corpuscular Hemoglobin 32.8 pg (25.0-34.0); Mean Corpuscular Volume 99.3 fL (80.0-100.0); Mean Platelet Volume 10.3 fL (9.4-12.4); Platelet Count 284 K/uL (130-400); RDW Coefficient of Variation 12.3 % (11.5-14.5); RDW Standard Deviation 44.8 fL (36.4-46.3); Red Blood Count 2.99 M/uL (4.20-5.40); White Blood Count 8.96 K/ul (4.8-10.8)
[2023-11-24 10:01] LABS: BUN Creatinine Ratio 14.3 (10-20); Calcium 8.8 mg/dl (8.6-10.3); Est GFR (Non-African American) 69.9 ml/min; Potassium 3.8 mmol/L (3.5-5.1)
--- NOTE | 2023-11-24 11:26 | Hospitalist Progress Note ---
Date of Service November 24, 2023 Assessment & Plan (1) Neurogenic claudication due to lumbar spinal stenosis: (2) Bilateral pulmonary embolism: (3) Hypoxia: (4) History of stroke: (5) Hypertension: (6) Hypothyroidism: (7) Depression: Plan Ms. Vick is a 73 year old female that underwent an elective L3-S1 decompression and fusion surgery under the care of Dr. Mena after failed conservative treatment for back pain as an outpatient. Additional PMH includes: H/O CVA, fatty liver disease, HTN, hypothyroidism, and depression. Additionally patient has diagnosis of spontaneous CFS leaking diagnosed 2012. She has reportedly had 13 leaks that has received blood patch. She takes Diamox and potassium for this. She is here due to post operative seroma and underwent I and D on 6. Neurogenic claudication due to lumbar spinal stenosis: POD#9 s/p L3-S1 decompression and fusion surgery under the care of Dr. Mena. Had new RLE pain 6/ --> MR L spine w/ significant seroma collection, likely reason for new radicular symptoms --> for IandD 6/3 by orthospine. POD #3 S/P Incision and drainage of post operative hematoma; EBL 10ml Per ortho for pain control, wound care, anticoagulation and activities. Monitor H&H, preop Hgb 13.2; will trend in AM Continue incentive spirometry. PT/OT following Hypoxia Bilateral Pulmonary Embolism on 11/21 with with episode of nausea, clamminess, lightheaded, and c/o EDOUARD. She continued to require oxygen Oxygen requirements were not compatible with co administration of IV narcotics CXR w/o acute abnormality Unable to perform Chest CTA due to allergy and pt reports allergy despite pre treatment in the past remains on 2L --V/Q scan : Multiple large segmental perfusion defects seen within the right upper lobe and left lower lobe.IMPRESSION: Above findings are consistent with a high probability scan. --Chest CT:increased attenuation involving branches of the pulmonary artery, notably within the left lung. This finding in conjunction with the high probability perfusion study obtained same day is compatible with pulmonary emboli.2. Cardiomegaly without overt pulmonary edema.3. Trace right pleural effusion.4. Mild nonspecific subsegmental groundglass densities of the right upper lobe may be atelectatic or represent a mild infectious or inflammatory process.5. No lymphadenopathy. ---bilateral venous dopplers negative Discussed with orthospine Dr. Mena who is amenable to initiating IV heparin, will need close monitoring in hospital for a few days to ensure stability CBC, BMP ordered and independently reviewed and interpreted by myself, hgb remains stable Initiate IV heparin with anticipation to start doac in near future -- likely for pt to remain here through weekend Acute blood loss anemia as cause of post operative anemia pre op hgb 13.2, post op 9.9 and stable no indication for transfusion at this time hgb remains stable, will need to monitor closely with starting anticoag DARRYL drain with 80 mL outs overnight Post operative constipation increase linzess to 290 daily, continue senna s 11/21 no relief with dulcolax, tap water enema, milk of mag 11/22 will give milk of molasses enema 11/23 lactulose BID - moved small amount of bowels on 11/22, may require one more enema today. 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 - treated at [facility] in [place] Per patient "treats me like a stroke when it happens" no problems since the blood patch/leaks have been patched with surgical glue HTN: Chronic Takes Bisoprolol Bisoprolol held on 11/21 and 11/22 due to bp on softer side Hypothyroidism: Chronic Takes levothyroxine;continue Depression: Chronic Takes Celexa;continue Disposition: PCP: Fernando Buckner Code Status: Full code FEN/GI: HH diet VTE Prophylaxis: Teds and SCDs, heparin gtt as above -anticipate pt to remain hospitalized for a few more days to monitor to any bleeding as result of IV heparin initiation and then eventual transition to DOAC Thank you for this consultation. We will follow the patient with you during their hospital stay. Please reach out with any questions or concerns. A total of 45 minutes was spent coordinating, documenting, and providing care for this patient excluding time spent in the performance of separately billed services. This included personally viewing all current laboratories and imaging studies, medication reconciliation, outpatient chart review, and discussion with specialists. Admission and Anticipated Discharge Date Admission Date: November 15, 2023 Supervising Physician Co-Signing Physician Notes Patient seen and examined Reports some dysuria and blood tinged urine in campbell earlier Remove campbell and reassess UA/UCx Reports orthostatic dizziness and some SOB with activity Orthostatic vitals was positive for orthostatic hypotension. NSS 500cc bolus given Reassess Continue IV hep gtt. Monitor for signs of bleeding/hb Wean oxygen PT/OT Patient reviewed with Advanced Practitioner Agree with Advanced Practitioner's evaluation, findings and plans and take full responsibility Subjective Pt seen and examined today and doing well overall. States her lower back pain is minimal at this point. Working with PT/OT. She is telling me that she is going to move her bowels, had lactulose and enema yesterday, lactulose again this morning. + passing gas. Denies fever, chills, sweats. She denies spec [facility] urinary complaints today but has campbell still in place, will dc today. No fever, chills sweats. Heparin gtt running. Minimal outs in DARRYL drain overnight, 80 mL. Physical Exam Physical Exam: General: awake, alert, no apparent distress, white female Head: Normocephalic, atraumatic ENT: PERRL, EOMI, no pharyngeal exudate, mucous membranes moist Chest: Clear to auscultation, on room air, no adventitious breath sounds Back: Dressing c/d/i, incision is healing well, DARRYL drain with minimal serosa nguineous out overnight. Cardiac: Regular rate and rhythm, no murmur, no JVD, normal peripheral pulses, good capillary refill Abdominal: NABS x 4 quadrants, soft, nondistended, nontender to palpation, no rebound or guarding : campbell catheter in place draining clear yellow urine Extremities: Normal inspection, no peripheral edema or erythema, calfs nontender to palpation Psych: Normal mood and affect Neuro: AAO x 3, strength intact bilaterally and rated 5/5, no motor deficits, speech is clear, no peripheral sensory deficits Results & Data Results & Data Vital Signs (Past 12 Hours) Vital Signs Temp Pulse Pulse Pulse Resp BP Pulse Ox 11/24/23 09:12 36.7 C 63 17 124/71 96 11/24/23 08:14 11/24/23 07:00 61 11/24/23 03:06 36.9 C 74 18 121/73 90 O2 Del Method O2 Flow Rate 11/24/23 09:12 Nasal Cannula 2 11/24/23 08:14 Nasal Cannula 2 11/24/23 07:00 11/24/23 03:06 Nasal Cannula 3 Laboratory Results 11/24/23 11/24/23 11/23/23 06:20 06:16 21:17 WBC 8.96 RBC 2.99 L Hgb 9.8 L Hct 29.7 L MCV 99.3 MCH 32.8 MCHC 33.0 RDW Std Deviation 44.8 RDW Coeff of Eliazar 12.3 Plt Count 284 MPV 10.3 Immature Gran % (Auto) Neut % (Auto) Lymph % (Auto) [place] % (Auto) Eos % (Auto) Baso % (Auto) Neut # (Auto) Lymph # (Auto) [place] # (Auto) Eos # (Auto) Baso # (Auto) Immature Gran # (Auto) PT INR APTT PTT Ratio Heparin Anti-Xa, Unfract 0.49 0.35 Sodium 139 Potassium 3.8 Chloride 104 Carbon Dioxide 29 Anion Gap 6 BUN 12 Creatinine 0.84 Est Cr Clr Drug Dosing 72.0 Est GFR ( Amer) 81.0 Est GFR (Non-Af Amer) 69.9 BUN/Creatinine Ratio 14.3 Glucose 93 Calcium 8.8 Total Bilirubin AST ALT Alkaline Phosphatase Total Protein Albumin Globulin Albumin/Globulin Ratio 11/23/23 11:47 WBC 10.58 RBC 3.14 L Hgb 9.9 L Hct 31.2 L MCV 99.4 MCH 31.5 MCHC 31.7 L RDW Std Deviation 45.2 RDW Coeff of Eliazar 12.4 Plt Count 300 MPV 9.9 Immature Gran % (Auto) 0.8 Neut % (Auto) 55.1 Lymph % (Auto) 31.5 Wheeler % (Auto) 9.8 Eos % (Auto) 2.3 Baso % (Auto) 0.5 Neut # (Auto) 5.83 Lymph # (Auto) 3.33 [place] # (Auto) 1.03 H Eos # (Auto) 0.24 Baso # (Auto) 0.05 Immature Gran # (Auto) 0.08 PT 10.9 INR 1.0 APTT 23 PTT Ratio 0.9 Heparin Anti-Xa, Unfract < 0.10 L Sodium 139 Potassium 3.7 Chloride 103 Carbon Dioxide 30 Anion Gap 6 BUN 18 Creatinine 1.04 Est Cr Clr Drug Dosing 54.7 Est GFR ( Amer) 62.6 Est GFR (Non-Af Amer) 54.0 BUN/Creatinine Ratio 17.3 Glucose 88 Calcium 8.8 Total Bilirubin 0.4 AST 27 ALT 16 Alkaline Phosphatase 52 Total Protein 6.1 Albumin 3.3 L Globulin 2.8 Albumin/Globulin Ratio 1.2
[2023-11-24 13:21] LABS: Appearance Urine Turbid (Clear); Bacteria Urine Automated 4+ (None Seen); Bilirubin Urine Negative (Negative); Blood Urine 3+ (Negative); Cast Urine Automated 0-2 /lpf (0-2); Color Urine Dark Yellow; Glucose Urine UA Negative (Negative); Ketones Urine Trace (Negative); Leukocyte Esterase Urine 3+ (Negative); Nitrite Urine Positive (Negative); Protein Urine 1+ (Negative); RBC Urine Automated >20 /hpf (0-2); Specific Gravity Urine 1.021 (1.000-1.030); Urobilinogen Urine Negative (Negative); WBC Urine Automated >50 /hpf (0-5); pH Urine 6.5 (4.5-7.5)
[2023-11-24] MEDS: SODIUM CHLORIDE 0.9% 500 ML IV ONE (14:19)
[2023-11-25 07:20] LABS: Hematocrit (blood only) 28.3 % (37.0-47.0); Hemoglobin 9.2 g/dl (12.0-16.0); Mean Corpuscular Hemoglobin 32.3 pg (25.0-34.0); Mean Corpuscular Hgb Conc 32.5 g/dL (32.0-36.0); Mean Corpuscular Volume 99.3 fL (80.0-100.0); Mean Platelet Volume 9.9 fL (9.4-12.4); Platelet Count 272 K/uL (130-400); RDW Coefficient of Variation 12.3 % (11.5-14.5); RDW Standard Deviation 44.5 fL (36.4-46.3); Red Blood Count 2.85 M/uL (4.20-5.40); White Blood Count 10.11 K/ul (4.8-10.8)
[2023-11-25 07:35] LABS: BUN Creatinine Ratio 11.4 (10-20); Calcium 8.5 mg/dl (8.6-10.3); Creatinine Clr Calc Pharmacy 77.4 ml/min; Est GFR (African American) 87.3 ml/min; Est GFR (Non-African American) 75.3 ml/min; Potassium 3.8 mmol/L (3.5-5.1)
[2023-11-25 07:42] LABS: ANTI-Xa, UFH(UnfractionatedHep 0.47 IU/ml (0.3-0.7)
[2023-11-25] MEDS ORDERED: cefTRIAXone SODIUM 1,000 MG/50 ML BAG IV SCH (07:45)
[2023-11-25] MEDS: cefTRIAXone SODIUM 2,000 MG/50 ML BAG IV SCH (08:14)
--- NOTE | 2023-11-25 10:33 | Hospitalist Progress Note ---
Date of Service November 25, 2023 Assessment & Plan (1) Neurogenic claudication due to lumbar spinal stenosis: (2) Bilateral pulmonary embolism: (3) Hypoxia: (4) History of stroke: (5) Hypertension: (6) Hypothyroidism: (7) Depression: Plan Ms. Vick is a 73 year old female that underwent an elective L3-S1 decompression and fusion surgery under the care of Dr. Mena after failed conservative treatment for back pain as an outpatient. Additional PMH includes: H/O CVA, fatty liver disease, HTN, hypothyroidism, and depression. Additionally patient has diagnosis of spontaneous CFS leaking diagnosed 2012. She has reportedly had 13 leaks that has received blood patch. She takes Diamox and potassium for this. She is here due to post operative seroma and underwent I and D on 6. Neurogenic claudication due to lumbar spinal stenosis: POD#9 s/p L3-S1 decompression and fusion surgery under the care of Dr. Mena. Had new RLE pain 6/ --> MR L spine w/ significant seroma collection, likely reason for new radicular symptoms --> for IandD 6/3 by orthospine. POD #3 S/P Incision and drainage of post operative hematoma; EBL 10ml Per ortho for pain control, wound care, anticoagulation and activities. Monitor H&H, preop Hgb 13.2; will trend in AM Continue incentive spirometry. PT/OT following Hypoxia Bilateral Pulmonary Embolism on 6 with with episode of nausea, clamminess, lightheaded, and c/o EDOUARD. She continued to require oxygen Oxygen requirements were not compatible with co administration of IV narcotics CXR w/o acute abnormality Unable to perform Chest CTA due to allergy and pt reports allergy despite pre treatment in the past remains on 2L --V/Q scan : Multiple large segmental perfusion defects seen within the right upper lobe and left lower lobe.IMPRESSION: Above findings are consistent with a high probability scan. --Chest CT:increased attenuation involving branches of the pulmonary artery, notably within the left lung. This finding in conjunction with the high probability perfusion study obtained same day is compatible with pulmonary emboli.2. Cardiomegaly without overt pulmonary edema.3. Trace right pleural effusion.4. Mild nonspecific subsegmental groundglass densities of the right upper lobe may be atelectatic or represent a mild infectious or inflammatory process.5. No lymphadenopathy. ---bilateral venous dopplers negative Discussed with orthospine Dr. Mena who is amenable to initiating IV heparin, will need close monitoring in hospital for a few days to ensure stability CBC, BMP ordered and independently reviewed and interpreted by myself, hgb remains stable Initiate IV heparin with anticipation to start doac in near future -- likely for pt to remain here through weekend Acute blood loss anemia as cause of post operative anemia pre op hgb 13.2, post op 9.9 and stable, 9.2 on 11/24 no indication for transfusion at this time hgb remains stable, will need to monitor closely with starting anticoag DARRYL drain with 60 mL outs overnight Post operative constipation increase linzess to 290 daily, continue senna s 11/21 no relief with dulcolax, tap water enema, milk of mag 11/22 will give milk of molasses enema 11/23 lactulose BID - moved small amount of bowels on 11/22 11/24 Large Bowel movement overnight, cont lactulose and plan to dc soon if daily bm Acute catheter associated Cystitis postoperatively - Ceftriaxone (started 11/24) for UA appeared infected on 11/23. follow urine culture - VSS, does not appear septic at this time. 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 Has had positive orthostatics, given NSS x 500 cc on 11/23, assess orthostatics today to determine if additional fluids needed. Pt is tolerating po intake. Hypothyroidism: Chronic Takes levothyroxine;continue Depression: Chronic Takes Celexa;continue Disposition: PCP: Fernando Buckner Code Status: Full code FEN/GI: HH diet VTE Prophylaxis: Teds and SCDs, heparin gtt as above -anticipate pt to remain hospitalized for a few more days to monitor to any bleeding as result of IV heparin initiation and then eventual transition to DOAC Thank you for this consultation. We will follow the patient with you during their hospital stay. Please reach out with any questions or concerns. A total of 45 minutes was spent coordinating, documenting, and providing care for this patient excluding time spent in the performance of separately billed services. This included personally viewing all current laboratories and imaging studies, medication reconciliation, outpatient chart review, and discussion with specialists. Admission and Anticipated Discharge Date Admission Date: November 15, 2023 Supervising Physician Co-Signing Physician Notes Patient seen and examined Still reports orthostatic dizziness and some exertional dyspnea Reports dysuria yesterday after campbell removal but none today No hematuria today UA suggestive of UTI Started on ceftriaxone Follow up urine culture Hb remains stable Continue hep gtt Wean oxygen as tolerated. Will need 2 step on dc Hold home bisoprolol and monitor Give NSS bolus for orthostatic hypotension Monitor Patient reviewed with Advanced Practitioner Agree with Advanced Practitioner's evaluation, findings and plans and take full responsibility Subjective Pt seen this morning. States she feels dizzy with standing and short of breath with walking about the room. Pt had large bowel movement last night. Continues to take the lactulose and feels so much better since being able to move bowels. Pt notes urinary frequency overnight since campbell cath was removed. Denies hematuria. Hgb is stable. DARRYL drain with 60 mL serosanginous outs. Pt UA appeared infected so started ceftriaxone this morning to cover for UTI. urine culture is pending. Physical Exam Physical Exam: General: awake, alert, no apparent distress, white female Head: Normocephalic, atraumatic ENT: PERRL, EOMI, no pharyngeal exudate, mucous membranes moist Chest: Clear to auscultation, on room air, no adventitious breath sounds Back: Dressing c/d/i, incision is healing well, DARRYL drain with minimal serosanguineous out overnight. Cardiac: Regular rate and rhythm, no murmur, no JVD, normal peripheral pulses, good capillary refill Abdominal: NABS x 4 quadrants, soft, nondistended, nontender to palpation, no rebound or guarding Extremities: Normal inspection, no peripheral edema or erythema, calfs nontender to palpation Psych: Normal mood and affect Neuro: AAO x 3, strength intact bilaterally and rated 5/5, no motor deficits, speech is clear, no peripheral sensory deficits Results & Data Results & Data Vital Signs (Past 12 Hours) Vital Signs Temp Pulse Pulse Pulse Resp BP BP 11/25/23 09:48 61 11/25/23 07:38 36.5 C 79 18 101/66 11/25/23 03:00 36.5 C 75 18 100/57 L 11/24/23 23:45 36.8 C 71 18 113/65 11/24/23 22:33 Pulse Ox O2 Del Method O2 Flow Rate 11/25/23 09:48 11/25/23 07:38 95 Nasal Cannula 2 11/25/23 03:00 94 Nasal Cannula 4 11/24/23 23:45 96 Nasal Cannula 4 11/24/23 22:33 Nasal Cannula 2
--- NOTE | 2023-11-25 11:28 | Orthopedic Progress Note ---
Date of Service November 25, 2023 Assessment & Plan (1) Neurogenic claudication due to lumbar spinal stenosis: Plan: At this time the plan is to observe the patient over the weekend transition to oral anticoagulants hopefully discharge home Tuesday. Admission and Anticipated Discharge Date Admission Date: November 15, 2023 Subjective Patient has no leg pain but continued continues to struggle with orthostatic hypotension Physical Exam Physical Exam: Patient is is currently in chair at the bedside. Is good strength testing. Results & Data Vital Signs (Past 12 Hours) Vital Signs Temp Pulse Pulse Pulse Resp BP BP 11/25/23 09:48 61 11/25/23 07:38 36.5 C 79 18 101/66 11/25/23 03:00 36.5 C 75 18 100/57 L 11/24/23 23:45 36.8 C 71 18 113/65 Pulse Ox O2 Del Method O2 Flow Rate 11/25/23 09:48 11/25/23 07:38 95 Nasal Cannula 2 11/25/23 03:00 94 Nasal Cannula 4 11/24/23 23:45 96 Nasal Cannula 4
[2023-11-25] MEDS: SODIUM CHLORIDE 0.9% 500 ML IV ONE (14:40)
[2023-11-26 08:10] LABS: Basophils # (auto) 0.06 K/uL (0.00-0.20); Basophils % (auto) 0.6 %; Eosinophils # (auto) 0.44 K/uL (0.00-0.50); Eosinophils % (auto) 4.4 %; Hematocrit (blood only) 31.2 % (37.0-47.0); Hemoglobin 10.1 g/dl (12.0-16.0); Immature Granulocytes # (auto) 0.16 K/uL (0.01-0.20); Immature Granulocytes % (auto) 1.6 %; Lymphocytes # (auto) 4.04 K/uL (1.20-3.40); Lymphocytes % (auto) 40.4 %; Mean Corpuscular Hemoglobin 32.2 pg (25.0-34.0); Mean Corpuscular Hgb Conc 32.4 g/dL (32.0-36.0); Mean Corpuscular Volume 99.4 fL (80.0-100.0); Monocytes # (auto) 0.99 K/uL (0.11-0.59); Monocytes % (auto) 9.9 %; Neutrophils # (auto) 4.31 K/uL (1.40-6.50); Neutrophils % (auto) 43.1 %; Platelet Count 306 K/uL (130-400); RDW Coefficient of Variation 12.7 % (11.5-14.5); RDW Standard Deviation 45.6 fL (36.4-46.3); Red Blood Count 3.14 M/uL (4.20-5.40)
[2023-11-26 08:26] LABS: ANTI-Xa, UFH(UnfractionatedHep 0.51 IU/ml (0.3-0.7)
[2023-11-26 08:28] LABS: Calcium 9.1 mg/dl (8.6-10.3); Creatinine Clr Calc Pharmacy 78.3 ml/min; Est GFR (African American) 88.6 ml/min; Est GFR (Non-African American) 76.5 ml/min; Potassium 3.9 mmol/L (3.5-5.1)
--- NOTE | 2023-11-26 09:50 | Hospitalist Progress Note ---
Date of Service November 26, 2023 Assessment & Plan (1) Neurogenic claudication due to lumbar spinal stenosis: (2) Bilateral pulmonary embolism: (3) Hypoxia: (4) History of stroke: (5) Hypertension: (6) Hypothyroidism: (7) Depression: Plan 73 year old female that underwent an elective L3-S1 decompression and fusion surgery under the care of Dr. Mena after failed conservative treatment for back pain as an outpatient. Additional PMH includes: H/O CVA, fatty liver disease, HTN, hypothyroidism, and depression. Additionally patient has diagnosis of spontaneous CFS leaking diagnosed 2012. She has reportedly had 13 leaks that has received blood patch. She takes Diamox and potassium for this. She is here due to post operative seroma and underwent I and D on 11/20. Neurogenic claudication due to lumbar spinal stenosis: On 11/15/23: s/p L3-S1 decompression and fusion surgery under the care of Dr. Mena. Had new RLE pain 11/18 --> MR L spine w/ significant seroma collection, likely reason for new radicular symptoms --> for I/D 11/20 by orthospine. On 11/21/23: S/P Incision and drainage of post operative hematoma; EBL 10ml Monitor H&H, preop Hgb 13.2; Continue PT/OT Acute blood loss anemia as cause of post operative anemia Pre op hgb 13.2, post op 9.9 Hb has been stable Hb is 10 today Hypoxia Bilateral Pulmonary Embolism On 11/21 with with episode of nausea, clamminess, lightheaded, and c/o EDOUARD. She continued to require oxygen Oxygen requirements were not compatible with co administration of IV narcotics CXR w/o acute abnormality Unable to perform Chest CTA due to allergy and pt reports allergy despite pre treatment in the past V/Q scan : Multiple large segmental perfusion defects seen within the right upper lobe and left lower lobe.IMPRESSION: Above findings are consistent with a high probability scan. Chest CT: increased attenuation involving branches of the pulmonary artery, notably within the left lung. This finding in conjunction with the high probability perfusion study obtained same day is compatible with pulmonary emboli. Cardiomegaly without overt pulmonary edema. Trace right pleural effusion. Mild nonspecific subsegmental groundglass densities of the right upper lobe may be atelectatic or represent a mild infectious or inflammatory process Bilateral venous dopplers negative Orthospine surgeon Dr. Mena was ok with Anticoag for Acute PE but will need closer monitoring in hospital for a few days to ensure stability Was started on IV heparin Hb has remained stable Discussed with Dr Mena today. Ok to transition to Eliquis and monitor over the weekend Heparin changed to eliquis 10mg BID x 7 days then 5mg BID afterwards. Monitor Post operative constipation Required aggressive bowel regimen Constipation has resolved Acute catheter associated Cystitis postoperatively Ceftriaxone (started 11/24) for UA appeared infected on 11/23. 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 - treated at [facility] in [place] Per patient "treats me like a stroke when it happens" no problems since the blood patch/leaks have been patched with surgical glue HTN: Chronic Takes Bisoprolol at home Bisoprolol currently on hold due to orthostatic hypotension Monitor Hypothyroidism: Chronic Takes levothyroxine;continue Depression: Chronic Takes Celexa;continue Disposition: PCP: Fernando Buckner Code Status: Full code FEN/GI: HH diet VTE Prophylaxis: heparin gtt as above I spent a total of 45 minutes coordinating, documenting and providing care for this patient excluding time spent in performance of separately billed services Admission and Anticipated Discharge Date Admission Date: November 15, 2023 Subjective Patient seen and examined Reports feeling better today Sitting up in bed Denied any dizziness on getting up today Still has some shortness of breath with exertion Denied dysuria today Denied freq, urgency, hematuria, fever, chills Reports surgical site pain is well controlled Denied chest pain,cough Physical Exam Constitutional: + well hydrated; no acute distress Eyes: PERRL, conjunctivae normal, anicteric sclerae ENMT: external ear and nose normal, oropharynx normal Respiratory: normal respiratory effort, lungs clear to auscultation Cardiovascular: S1 S2 Gastrointestinal (Abdomen): normal bowel sounds, soft, nontender, no hepatosplenomegaly Musculoskeletal: Clean dressing over surgical site with drain in situ Neurologic: PERRL, EOMI, accommodation nl, no face palsy, no dysarthria Psychiatric: A+Ox3, euthymic affect Results & Data Results & Data Vital Signs (Past 12 Hours) Vital Signs Temp Pulse Pulse Resp BP Pulse Ox O2 Del Method 11/26/23 08:35 36.4 C L 74 20 130/82 98 Room Air 11/26/23 07:23 58 L 11/26/23 00:59 36.7 C 71 18 97/57 L 96 Nasal Cannula 11/26/23 00:00 65 O2 Flow Rate 11/26/23 08:35 11/26/23 07:23 11/26/23 00:59 2 11/26/23 00:00 Laboratory Results Abnormal lab results 11/26/23 Range/Units 07:34 RBC 3.14 L (4.20-5.40) M/uL Hgb 10.1 L (12.0-16.0) g/dl Hct 31.2 L (37.0-47.0) % Lymph # (Auto) 4.04 H (1.20-3.40) K/uL [place] # (Auto) 0.99 H (0.11-0.59) K/uL BUN/Creatinine Ratio 9.0 L (10-20)
--- NOTE | 2023-11-26 10:02 | Orthopedic Progress Note ---
Date of Service November 26, 2023 Assessment & Plan (1) Neurogenic claudication due to lumbar spinal stenosis: Plan: This point we will maintain her DARRYL drain. Will encourage her to ambulate as tolerated. Hopefully discharge home Tuesday. Admission and Anticipated Discharge Date Admission Date: November 15, 2023 Subjective Back pain is controlled. She is struggling with some soreness in her legs but is not radicular in nature. She has been up earlier today and ambulating. Denies any nausea vomiting or lightheadedness. Physical Exam Physical Exam: Patient is in bed at this time. She is comfortable. Distracted testing. Results & Data Vital Signs (Past 12 Hours) Vital Signs Temp Pulse Pulse Resp BP Pulse Ox O2 Del Method 11/26/23 08:35 36.4 C L 74 20 130/82 98 Room Air 11/26/23 07:23 58 L 11/26/23 00:59 36.7 C 71 18 97/57 L 96 Nasal Cannula 11/26/23 00:00 65 O2 Flow Rate 11/26/23 08:35 11/26/23 07:23 11/26/23 00:59 2 11/26/23 00:00
[2023-11-26] MEDS: APIXABAN 5 MG TABLET PO SCH (12:04)
[2023-11-26] MEDS: traMADol HCL 50 MG TABLET PO PRN (18:02)
--- NOTE | 2023-11-27 07:44 | Orthopedic Progress Note ---
Date of Service November 27, 2023 Assessment & Plan (1) Neurogenic claudication due to lumbar spinal stenosis: Plan: November is status post L3-S1 decompression and fusion with postoperative I&D due to evacuation of hematoma and postoperative bilateral PEs. Now on Eliquis. Will continue with ambulation. Continue with pain control. Maintain DARRYL drain. Anticipate discharge home tomorrow Admission and Anticipated Discharge Date Admission Date: November 15, 2023 Subjective Nano is status post L3-S1 decompression and fusion on November 14 and status post I&D lumbar spine on November 20. Unfortunately after her I&D she had developed bilateral PE. She is now on Eliquis. She has some right anterior lateral thigh pain that she had postoperatively. DARRYL drain intact. No new complaints Review of Systems Review of Systems: All systems reviewed & are unremarkable except as noted in HPI & below Physical Exam Physical Exam: She is laying in bed in no acute distress Alert and oriented x 3 Lumbar dressing is clean dry and intact with functioning DARRYL drain Strength is intact bilateral lower extremities Results & Data Vital Signs (Past 12 Hours) Vital Signs Temp Pulse Pulse Resp BP BP Pulse Ox 11/27/23 07:24 36.7 C 74 20 95/57 L 94 11/27/23 05:03 36.7 C 67 20 114/69 94 11/26/23 23:59 36.5 C 72 20 93/53 L 94 11/26/23 22:13 70 11/26/23 20:32 36.8 C 77 20 99/63 L 92 O2 Del Method O2 Flow Rate 11/27/23 07:24 Nasal Cannula 2 11/27/23 05:03 Nasal Cannula 2 11/26/23 23:59 Nasal Cannula 2 11/26/23 22:13 11/26/23 20:32 Nasal Cannula 2
[2023-11-27 08:30] LABS: Hematocrit (blood only) 31.1 % (37.0-47.0); Mean Corpuscular Hemoglobin 31.9 pg (25.0-34.0); Mean Corpuscular Hgb Conc 32.2 g/dL (32.0-36.0); Mean Corpuscular Volume 99.4 fL (80.0-100.0); Mean Platelet Volume 9.9 fL (9.4-12.4); Platelet Count 341 K/uL (130-400); RDW Coefficient of Variation 12.8 % (11.5-14.5); RDW Standard Deviation 45.9 fL (36.4-46.3); Red Blood Count 3.13 M/uL (4.20-5.40); White Blood Count 8.18 K/ul (4.8-10.8)
[2023-11-27 08:52] LABS: BUN Creatinine Ratio 10.2 (10-20); Creatinine Clr Calc Pharmacy 69.4 ml/min; Est GFR (African American) 76.6 ml/min; Est GFR (Non-African American) 66.1 ml/min; Potassium 4.1 mmol/L (3.5-5.1)
[2023-11-27 09:09] LABS: ANTI-Xa, UFH(UnfractionatedHep > 1.50 IU/ml (0.3-0.7)
[2023-11-27] MEDS: HYDROmorphone INJ 0.5 MG/0.5 ML SYR IV PRN (10:03)
--- NOTE | 2023-11-27 10:49 | Hospitalist Progress Note ---
Date of Service November 27, 2023 Assessment & Plan (1) Neurogenic claudication due to lumbar spinal stenosis: (2) Bilateral pulmonary embolism: (3) Hypoxia: (4) History of stroke: (5) Hypertension: (6) Hypothyroidism: (7) Depression: Plan 73 year old female that underwent an elective L3-S1 decompression and fusion surgery under the care of Dr. Mena after failed conservative treatment for back pain as an outpatient. Additional PMH includes: H/O CVA, fatty liver disease, HTN, hypothyroidism, and depression. Additionally patient has diagnosis of spontaneous CFS leaking diagnosed 2012. She has reportedly had 13 leaks that has received blood patch. She takes Diamox and potassium for this. She is here due to post operative seroma and underwent I and D on 11/20. Neurogenic claudication due to lumbar spinal stenosis: On 11/15/23: s/p L3-S1 decompression and fusion surgery under the care of Dr. Mena. Had new RLE pain 11/18 --> MR L spine w/ significant seroma collection, likely reason for new radicular symptoms --> for I/D 11/20 by orthospine. On 11/21/23: S/P Incision and drainage of post operative hematoma; EBL 10ml Monitor H&H, preop Hgb 13.2; Continue PT/OT Increased pain reported today may be related to adjustment of pain med yesterday due to dizziness Optimize pain control Low suspicion for bleeding based on surgical drain output and stable hemoglobin I also discussed with Ortho Malissa. She was also not concern for surgical site bleeding/hematoma based on her eval earlier today Acute blood loss anemia as cause of post operative anemia Pre op hgb 13.2, post op 9.9 Hb has been stable Hb is 10 today Hypoxia Bilateral Pulmonary Embolism On 11/21 with with episode of nausea, clamminess, lightheaded, and c/o EDOUARD. She continued to require oxygen Oxygen requirements were not compatible with co administration of IV narcotics CXR w/o acute abnormality Unable to perform Chest CTA due to allergy and pt reports allergy despite pre treatment in the past V/Q scan : Multiple large segmental perfusion defects seen within the right upper lobe and left lower lobe.IMPRESSION: Above findings are consistent with a high probability scan. Chest CT: increased attenuation involving branches of the pulmonary artery, notably within the left lung. This finding in conjunction with the high probability perfusion study obtained same day is compatible with pulmonary emboli. Cardiomegaly without overt pulmonary edema. Trace right pleural effusion. Mild nonspecific subsegmental groundglass densities of the right upper lobe may be atelectatic or represent a mild infectious or inflammatory process Bilateral venous dopplers negative Orthospine surgeon Dr. Mena was ok with Anticoag for Acute PE but will need closer monitoring in hospital for a few days to ensure stability Was initially on IV heparin, now transitioned to Eliquis 10mg BID since 11/26/23 x 7 days then 5mg BID afterwards. Continue to monitor Post operative constipation Required aggressive bowel regimen Constipation has resolved Acute catheter associated Cystitis postoperatively Ceftriaxone (started 11/24) for UA appeared infected on 11/23. 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 - treated at [facility] [place] Per patient "treats me like a stroke when it happens" no problems since the blood patch/leaks have been patched with surgical glue HTN: Chronic Takes Bisoprolol at home Bisoprolol currently on hold due to orthostatic hypotension Monitor Hypothyroidism: Chronic Takes levothyroxine;continue Depression: Chronic Takes Celexa;continue Disposition: PCP: Fernando Buckner Code Status: Full code FEN/GI: HH diet VTE Prophylaxis: Kayli I spent a total of 50 minutes coordinating, documenting and providing care for this patient excluding time spent in performance of separately billed services Admission and Anticipated Discharge Date Admission Date: November 15, 2023 Subjective Patient seen and examined Reports increased right thigh pain today Denied any dizziness on getting up today Reports shortness of breath with exertion Denied dysuria, freq, urgency, hematuria, fever, chills Physical Exam Constitutional: + well hydrated; no acute distress Eyes: PERRL, conjunctivae normal, anicteric sclerae ENMT: external ear and nose normal, oropharynx normal Respiratory: normal respiratory effort, lungs clear to auscultation Cardiovascular: Rate/Rhythm: regular rate and regular rhythm Gastrointestinal (Abdomen): normal bowel sounds, soft, nontender, no hepatosplenomegaly Musculoskeletal: No pedal edema Clean dressing with surgical drain in situ Limited passive ROM of RLE due to pain Neurologic: PERRL, EOMI, accommodation nl, no face palsy, no dysarthria Psychiatric: A+Ox3, euthymic affect Results & Data Results & Data Vital Signs (Past 12 Hours) Vital Signs Temp Pulse Resp BP BP Pulse Ox O2 Del Method 11/27/23 10:31 Nasal Cannula 11/27/23 07:24 36.7 C 74 20 95/57 L 94 Nasal Cannula 11/27/23 05:03 36.7 C 67 20 114/69 94 Nasal Cannula 11/26/23 23:59 36.5 C 72 20 93/53 L 94 Nasal Cannula O2 Flow Rate 11/27/23 10:31 2 11/27/23 07:24 2 11/27/23 05:03 2 11/26/23 23:59 2 Laboratory Results Abnormal lab results 11/27/23 11/27/23 Range/Units 07:58 12:21 RBC 3.13 L (4.20-5.40) M/uL Hgb 10.0 L (12.0-16.0) g/dl Hct 31.1 L (37.0-47.0) % Heparin Anti-Xa, Unfract > 1.50 H* (0.3-0.7) IU/ml POC Glucose 115 H (70-99) mg/dl
[2023-11-27] MEDS: GABAPENTIN 300 MG CAP PO SCH (19:35)
[2023-11-28 06:37] LABS: Hematocrit (blood only) 30.5 % (37.0-47.0); Hemoglobin 9.4 g/dl (12.0-16.0); Mean Corpuscular Hemoglobin 31.3 pg (25.0-34.0); Mean Corpuscular Hgb Conc 30.8 g/dL (32.0-36.0); Mean Corpuscular Volume 101.7 fL (80.0-100.0); Platelet Count 313 K/uL (130-400); RDW Coefficient of Variation 13.1 % (11.5-14.5); RDW Standard Deviation 48.5 fL (36.4-46.3); White Blood Count 8.38 K/ul (4.8-10.8)
[2023-11-28 06:49] LABS: BUN Creatinine Ratio 10.3 (10-20); Creatinine Clr Calc Pharmacy 58.6 ml/min; Est GFR (African American) 68.1 ml/min; Est GFR (Non-African American) 58.8 ml/min; Potassium 4.1 mmol/L (3.5-5.1)
--- NOTE | 2023-11-28 09:44 | Orthopedic Progress Note ---
Date of Service November 28, 2023 Assessment & Plan (1) Neurogenic claudication due to lumbar spinal stenosis: Plan: At this time encouraged her to ambulate as tolerated. All begin a short course of steroids to help with her inflammation particularly along the IT band. I suspect this is the source of her leg pain. She is requested rehab however reviewing her past notes this looks to be unlikely related to her insurance. Will see how she does over the next 24 hours. The drain will be discontinued today as it is decreased dramatically. Admission and Anticipated Discharge Date Admission Date: November 15, 2023 Subjective Patient is in the chair at the bedside. She continues to note pain along the right lateral thigh. This is exacerbated with activity. She is comfortable at rest. She has no clear radicular complaints in either lower extremities. No numbness or tingling of the legs. Physical Exam Physical Exam: On exam she is in the chair at the bedside. She has good plantarflexion dorsiflexion bilaterally. Sensory is intact. She is markedly tender palpation of the right greater trochanter and IT band. Results & Data Vital Signs (Past 12 Hours) Vital Signs Temp Pulse Pulse Resp BP BP Pulse Ox 11/28/23 07:47 36.4 C 97 H 20 93/62 L 94 11/28/23 07:33 11/28/23 07:14 72 11/28/23 04:13 36.6 C 68 20 102/64 93 11/27/23 23:47 36.7 C 76 20 102/64 93 11/27/23 22:19 77 O2 Del Method O2 Flow Rate 11/28/23 07:47 Room Air 11/28/23 07:33 Nasal Cannula 2 11/28/23 07:14 11/28/23 04:13 Nasal Cannula 2 11/27/23 23:47 Nasal Cannula 2 11/27/23 22:19
--- NOTE | 2023-11-28 11:17 | XRay Report ---
XR lumbar spine 2-3V HISTORY: 73 years-old Female post op standing if possible clinical data back pain with prior surgery COMPARISON: Lumbar spine MRI 11/19/2023 TECHNIQUE: 3 views of the lumbar spine FINDINGS: Scattered air-fluid levels throughout the large and small bowel. Indeterminate 1.6 and a ovoid radiod ensity projects over the abdominal right upper quadrant. No acute fracture. L3-S1 laminectomy, posterior interbody richard and screw fusion with discectomy. The h ardware appears intact. There is moderate multilevel spondylotic spurring. IMPRESSION: 1. No acute fracture or subluxation. 2. Postoperative changes of the lumbar spine as above. No radiographic evidence of hardware complicat ion ACT 112: Negative or not required by law. The above report was generated using voice recognition software. It may contain grammatical, syntax o r spelling errors. Electronically signed by: Juan J Uribe M.D. 11/28/2023 11:16 AM
[2023-11-28] MEDS: dexAMETHasone 8 MG in SYRINGE 0 ML IV SCH (13:02)
--- NOTE | 2023-11-28 15:21 | Hospitalist Progress Note ---
Date of Service November 28, 2023 Assessment & Plan (1) Neurogenic claudication due to lumbar spinal stenosis: (2) Bilateral pulmonary embolism: (3) Hypoxia: (4) History of stroke: (5) Hypertension: (6) Hypothyroidism: (7) Depression: Plan 73 year old female that underwent an elective L3-S1 decompression and fusion surgery under the care of Dr. Mena after failed conservative treatment for back pain as an outpatient. Additional PMH includes: H/O CVA, fatty liver disease, HTN, hypothyroidism, and depression. Additionally patient has diagnosis of spontaneous CFS leaking diagnosed 2012. She has reportedly had 13 leaks that has received blood patch. She takes Diamox and potassium for this. She is here due to post operative seroma and underwent I and D on 11/20. Neurogenic claudication due to lumbar spinal stenosis: POD #13 On 11/15/23: s/p L3-S1 decompression and fusion surgery under the care of Dr. Mena. Had new RLE pain 11/18 --> MR L spine w/ significant seroma collection, likely reason for new radicular symptoms --> for I/D 11/20 by orthospine. 11/21/23: S/P Incision and drainage of post operative hematoma; EBL 10ml Monitor H&H, preop Hgb 13.2; today 9.4. Has been 9.2-10.0 since surgery. No overt signs of bleeding. Will trend Hgb. patient making progress with pain, but continues to complain of pain on right gluteal region; suspect bursitis. On 11/27 Ortho starting short course of steroids to help with her inflammation/bursitis; will monitor for improvement Continue PT/OT Acute blood loss anemia as cause of post operative anemia Pre op hgb 13.2, post op 9.9 Hb has been stable Hb is 10 today Hypoxia Bilateral Pulmonary Embolism On 11/21 with with episode of nausea, clamminess, lightheaded, and c/o EDOUARD. She continued to require oxygen Oxygen requirements were not compatible with co administration of IV narcotics CXR w/o acute abnormality Unable to perform Chest CTA due to allergy and pt reports allergy despite pre treatment in the past V/Q scan: Multiple large segmental perfusion defects seen within the right upper lobe and left lower lobe.IMPRESSION: Above findings are consistent with a high probability scan. Chest CT: Increased attenuation involving branches of the pulmonary artery, notably within the left lung. This finding in conjunction with the high probability perfusion study obtained same day is compatible with pulmonary emboli. Cardiomegaly without overt pulmonary edema. Trace right pleural effusion. Mild nonspecific subsegmental groundglass densities of the right upper lobe may be atelectatic or represent a mild infectious or inflammatory process Bilateral venous dopplers negative Orthospine surgeon Dr. Mena was ok with Anticoag for Acute PE but will need closer monitoring in hospital for a few days to ensure stability Was initially on IV heparin, now transitioned to Eliquis 10mg BID since 11/26/23 x 7 days then 5mg BID afterwards. Continue on Eliquis; CM looking into cost. If not, need to consider alternative anticoagulant Post operative constipation Required aggressive bowel regimen Constipation continues to be resolved Acute catheter associated Cystitis postoperatively Ceftriaxone (started 11/24) for UA appeared infected on 11/23. 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 - treated at [facility] in [place] Per patient "treats me like a stroke when it happens" no problems since the blood patch/leaks have been patched with surgical glue HTN: Chronic Takes Bisoprolol at home Bisoprolol currently on hold due to orthostatic hypotension Soft BP mid to high 90's systolic; bilateral leg swelling; likely secondary to recent IV fluid bolus Avoid diuresis for now and monitor Hypothyroidism: Chronic Takes levothyroxine;continue Depression: Chronic Takes Celexa;continue Disposition: PCP: Fernando Buckner Code Status: Full code Diet: Heart Healthy diet VTE Prophylaxis: Eliquis I spent a total of 52 minutes coordinating, documenting and providing care for this patient excluding time spent in performance of separately billed services Admission and Anticipated Discharge Date Admission Date: November 15, 2023 Supervising Physician Co-Signing Physician Notes Patient seen and examined Reports surgical site pain is better controlled today Reports right lateral thigh pain is different from surgical site pain Lumbar spine XR noted post op changes Ortho spine surgeon started a short course of steroid for inflammation along IT band Hb remains stable Based on current functional status, will benefit from rehab CM working on this Agree with findings and plans as detailed by Dara STANFORD and take full responsibility Subjective When I visited the patient, she was just getting out of the restroom and was working with PT/OT with 2LNC. I walked with her in the hallway, she was able to hold full conversation with no apparent distress. Continues to complain of right sided sciatica/pain which is suspected to be bursitis. Continues to tolerate the Eliquis; CM working on cost for discharge planning If cost exceeds comfort level, will need to discuss alternative anticoagulation. Patient with BL LE edema; suspect secondary to recent fluid bolus' she has received and recent starting on Heparin gtt. Pt with soft BP consistently in the mid to upper 90's systolic; will continue to asses. Would be cautious with diuresing given her BP Could consider a low dose of 10 mg depending on how her BP is. For now, add RUBI hose for supportive treatment. Pt denies SOB, Chest pain, palpitations. Would benefit from some home health. No leukocytosis. Confirmed for DC planning pending Ortho recommendations; patient uses [facility] in [place]. Review of Systems Review of Systems: Neuro: (-) Falls, trauma, slurred speech HEENT: (-) SOTELO, dizziness, dysphagia, visual or auditory changes CV: (-) CP, palpitations, swelling Resp: (-) SOB GI: (-) appetite changes, N/V/D, bowel changes : (-) urinary changes Skin: (-) rashes Psych: (-) anxiety, depression Physical Exam Physical Exam: Neuro: AAOx4, PERRLA, no aphagia, memory changes, CNII-XII grossly intact HEENT: head normocephalic, moist mucus membranes CV: S1/S2, (-) M/G/R, (-) edema, cap refill < 3 seconds Resp: Lungs decreased in all monteiro. On 2LNC GI: Abdomen S/NT/ND, Ax4 bowel sounds, (-) CVA tenderness Musculoskeletal: 5/5 B/L UE strength, 5/5 B/L LE strength. No gait disturbance Skin: (-) rashes , (-) erythema. Psych: euthymic mood Results & Data Results & Data Vital Signs (Past 12 Hours) Vital Signs Temp Pulse Pulse Resp BP BP Pulse Ox 11/28/23 11:54 36.5 C 77 16 118/74 95 11/28/23 11:44 36.9 C 92 H 20 91/57 L 93 11/28/23 07:47 36.4 C 97 H 20 93/62 L 94 11/28/23 07:33 11/28/23 07:14 72 11/28/23 04:13 36.6 C 68 20 102/64 93 O2 Del Method O2 Flow Rate 11/28/23 11:54 Nasal Cannula 2 11/28/23 11:44 Nasal Cannula 2 11/28/23 07:47 Room Air 11/28/23 07:33 Nasal Cannula 2 11/28/23 07:14 11/28/23 04:13 Nasal Cannula 2 Laboratory Results Short CBC 11/28/23 Range/Units 05:55 WBC 8.38 (4.8-10.8) K/ul Hgb 9.4 L (12.0-16.0) g/dl Hct 30.5 L (37.0-47.0) % Plt Count 313 (130-400) K/uL BMP 11/28/23 05:55 Sodium 139 Potassium 4.1 Chloride 105 Carbon Dioxide 27 BUN 10 Creatinine 0.97 Glucose 97 Calcium 9.0 Diagnostic Findings Lumbar Spine X-Ray 11/28/23 09:42 XR lumbar spine 2-3V HISTORY: 73 years-old Female post op standing if possible clinical data back pain with prior surgery COMPARISON: Lumbar spine MRI 11/19/2023 TECHNIQUE: 3 views of the lumbar spine FINDINGS: Scattered air-fluid levels throughout the large and small bowel. Indeterminate 1.6 and a ovoid radiodensity projects over the abdominal right upper quadrant. No acute fracture. L3-S1 laminectomy, posterior interbody richard and screw fusion with discectomy. The hardware appears intact. There is moderate multilevel spondylotic spurring. IMPRESSION: 1. No acute fracture or subluxation. 2. Postoperative changes of the lumbar spine as above. No radiographic evidence of hardware complication ACT 112: Negative or not required by law. The above report was generated using voice recognition software. It may contain grammatical, syntax or spelling errors. Electronically signed by: Juan J Uribe M.D. 11/28/2023 11:16 AM
--- NOTE | 2023-11-29 08:03 | Orthopedic Progress Note ---
Date of Service November 29, 2023 Assessment & Plan (1) Neurogenic claudication due to lumbar spinal stenosis: Plan: At this time we will continue physical therapy and anticipate rehab versus SNF hopefully tomorrow when bed available. Admission and Anticipated Discharge Date Admission Date: November 15, 2023 Subjective Right leg symptoms are improving. Patient is comfortable today. She has been up and ambulating. Physical Exam Physical Exam: On exam she is currently in bed. She does appear more comfortable. She continues to have significant tenderness palpation of the right trochanteric region and IT band. She is neurologically intact. Results & Data Vital Signs (Past 12 Hours) Vital Signs Temp Pulse Pulse Resp BP Pulse Ox O2 Del Method 11/29/23 07:17 69 11/29/23 03:29 36.6 C 78 18 111/67 93 Nasal Cannula 11/28/23 23:45 36.6 C 77 16 120/70 92 Nasal Cannula 11/28/23 23:40 84 O2 Flow Rate 11/29/23 07:17 11/29/23 03:29 2 11/28/23 23:45 2 11/28/23 23:40
--- NOTE | 2023-11-29 11:32 | Hospitalist Progress Note ---
Date of Service November 29, 2023 Assessment & Plan (1) Neurogenic claudication due to lumbar spinal stenosis: (2) Bilateral pulmonary embolism: (3) Hypoxia: (4) History of stroke: (5) Hypertension: (6) Hypothyroidism: (7) Depression: Plan 73 year old female that underwent an elective L3-S1 decompression and fusion surgery under the care of Dr. Mena after failed conservative treatment for back pain as an outpatient. Additional PMH includes: H/O CVA, fatty liver disease, HTN, hypothyroidism, and depression. Additionally patient has diagnosis of spontaneous CFS leaking diagnosed 2012. She has reportedly had 13 leaks that has received blood patch. She takes Diamox and potassium for this. She is here due to post operative seroma and underwent I/D on 11/20. Neurogenic claudication due to lumbar spinal stenosis: POD #14 On 11/15/23: s/p L3-S1 decompression and fusion surgery under the care of Dr. Mena. Had new RLE pain 11/18 --> MR L spine w/ significant seroma collection, likely reason for new radicular symptoms --> for I/D 11/20 by orthospine. 11/21/23: S/P Incision and drainage of post operative hematoma; EBL 10ml Monitor H&H, preop Hgb 13.2; today 9.4. Has been 9.2-10.0 since surgery. No overt signs of bleeding. Will trend Hgb. Per Ortho, cleared for discharge once placement is arranged. Accepted at [facility]; awaiting bed placement/date of transfer CM working on Disposition to SNF for short term rehab. accepted at [facility]; awaiting bed placement/date of transfer Bursitis: Acute IT band tenderness and pain that has worsened over a few days Ortho started steroids on 11/27 for suspected bursitis Continue PT/OT Acute blood loss anemia as cause of post operative anemia Pre op hgb 13.2, post op 9.9 Hb has been stable Hb is 9.4 today; baseline 9.2-10.0 Hypoxia Bilateral Pulmonary Embolism On 11/21 with with episode of nausea, clamminess, lightheaded, and c/o EDOUARD. She continued to require oxygen Oxygen requirements were not compatible with co administration of IV narcotics CXR w/o acute abnormality Unable to perform Chest CTA due to allergy and pt reports allergy despite pre treatment in the past V/Q scan: Multiple large segmental perfusion defects seen within the right upper lobe and left lower lobe.IMPRESSION: Above findings are consistent with a high probability scan. Chest CT: Increased attenuation involving branches of the pulmonary artery, notably within the left lung. This finding in conjunction with the high probability perfusion study obtained same day is compatible with pulmonary emboli. Cardiomegaly without overt pulmonary edema. Trace right pleural effusion. Mild nonspecific subsegmental groundglass densities of the right upper lobe may be atelectatic or represent a mild infectious or inflammatory process Bilateral venous dopplers negative Orthospine surgeon Dr. Mena was ok with Anticoag for Acute PE but will need closer monitoring in hospital for a few days to ensure stability Was initially on IV heparin, now transitioned to Eliquis 10mg BID since 11/26/23 x 7 days then 5mg BID afterwards. Continue on Eliquis; CM looking into cost. If not, need to consider alternative anticoagulant Acute catheter associated Cystitis postoperatively Ceftriaxone (started 11/24) for UA appeared infected on 11/23. 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 - treated at [facility] in [place] Per patient "treats me like a stroke when it happens" no problems since the blood patch/leaks have been patched with surgical glue HTN: Chronic Takes Bisoprolol at home Bisoprolol currently on hold due to orthostatic hypotension Soft BP mid to high 90's systolic; bilateral leg swelling; likely secondary to recent IV fluid bolus Avoid diuresis for now and monitor Hypothyroidism: Chronic Takes levothyroxine;continue Depression: Chronic Takes Celexa;continue Disposition: PCP: Fernando Buckner Code Status: Full code Diet: Heart Healthy diet VTE Prophylaxis: Eliquis Disposition Per Ortho, cleared for discharge once placement is arranged. Accepted at [facility]; awaiting bed placement/date of transfer CM working on Disposition to SNF for short term rehab. accepted at [facility]; awaiting bed placement/date of transfer I spent a total of 52 minutes coordinating, documenting and providing care for this patient excluding time spent in performance of separately billed services Admission and Anticipated Discharge Date Admission Date: November 15, 2023 Supervising Physician Co-Signing Physician Notes Patient seen and examined Reports right thigh pain is better today Continue steroid, pain management, PT/OT CM working on rehab Agree with findings and plans as detailed by Dara STANFORD and take full responsibility Subjective Pt sitting on the edge of the bed during my encounter. She is feeling improvement with the steroids that were started yesterday She said she normally sits on the edge of the bed before getting up/ambulating due to dizziness Denies dizziness SOB, CP, N/V today PT working with her in the room She seems much more comfortable today compared to yesterday and previous days and she agrees See below for CM working on Dispo [facility] Review of Systems Review of Systems: Neuro: (-) Falls, trauma, slurred speech HEENT: (-) SOTELO, dizziness, dysphagia, visual or auditory changes CV: (-) CP, palpitations, swelling Resp: (-) SOB GI: (-) appetite changes, N/V/D, bowel changes : (-) urinary changes Skin: (-) rashes Psych: (-) anxiety, depression Physical Exam Physical Exam: Neuro: AAOx4, PERRLA, no aphagia, memory changes, CNII-XII grossly intact HEENT: head normocephalic, moist mucus membranes CV: S1/S2, (-) M/G/R, (-) edema, cap refill < 3 seconds Resp: Lungs decreased in all monteiro. On 2LNC GI: Abdomen S/NT/ND, Ax4 bowel sounds, (-) CVA tenderness Musculoskeletal: 5/5 B/L UE strength, 5/5 B/L LE strength. No gait disturbance Skin: (-) rashes , (-) erythema. Psych: euthymic mood Results & Data Results & Data Vital Signs (Past 12 Hours) Vital Signs Temp Pulse Pulse Resp BP Pulse Ox O2 Del Method 11/29/23 11:15 Nasal Cannula 11/29/23 08:02 36.5 C 72 16 139/77 94 Nasal Cannula 11/29/23 07:17 69 11/29/23 03:29 36.6 C 78 18 111/67 93 Nasal Cannula 11/28/23 23:45 36.6 C 77 16 120/70 92 Nasal Cannula 11/28/23 23:40 84 O2 Flow Rate 11/29/23 11:15 2 11/29/23 08:02 2 11/29/23 07:17 11/29/23 03:29 2 11/28/23 23:45 2 11/28/23 23:40
[2023-11-29] MEDS: oxyCODONE HCL IR 5 MG TAB (IMMEDIATE RELEASE) PO PRN (17:24)
--- NOTE | 2023-11-30 10:58 | Hospitalist Progress Note ---
Date of Service November 30, 2023 Assessment & Plan (1) Neurogenic claudication due to lumbar spinal stenosis: (2) Bilateral pulmonary embolism: (3) Hypoxia: (4) History of stroke: (5) Hypertension: (6) Hypothyroidism: (7) Depression: Plan 73 year old female that underwent an elective L3-S1 decompression and fusion surgery under the care of Dr. Mena after failed conservative treatment for back pain as an outpatient. Additional PMH includes: H/O CVA, fatty liver disease, HTN, hypothyroidism, and depression. Additionally patient has diagnosis of spontaneous CFS leaking diagnosed 2012. She has reportedly had 13 leaks that has received blood patch. She takes Diamox and potassium for this. She is here due to post operative seroma and underwent I/D on 11/20. On 11/22 she developed BL PE and was started on a Heparin gtt. She has been started on Eliquis and the d rips has been stopped. Plan for DC to SNF for short term rehab. See below for disposition. Neurogenic claudication due to lumbar spinal stenosis: POD #14 On 11/15/23: s/p L3-S1 decompression and fusion surgery under the care of Dr. Mena. Had new RLE pain 11/18 --> MR L spine w/ significant seroma collection, likely reason for new radicular symptoms --> for I/D 11/20 by orthospine. 11/21/23: S/P Incision and drainage of post operative hematoma; EBL 10ml Monitor H&H, preop Hgb 13.2; today 9.4. Has been 9.2-10.0 since surgery. No overt signs of bleeding. Will trend Hgb. Per Ortho, cleared for discharge once placement is arranged. [facility]; tentative transport at noon. Bursitis: Acute IT band tenderness and pain that has worsened over a few days Ortho started steroids on 11/27 for suspected bursitis Added Lidocaine patch and warm compress today Continue PT/OT Acute blood loss anemia as cause of post operative anemia Pre op hgb 13.2, post op 9.9 Hb has been stable Hb is 9.4 today; baseline 9.2-10.0 Hypoxia Bilateral Pulmonary Embolism On 11/21 with with episode of nausea, clamminess, lightheaded, and c/o EDOUARD. She continued to require oxygen Oxygen requirements were not compatible with co administration of IV narcotics CXR w/o acute abnormality Unable to perform Chest CTA due to allergy and pt reports allergy despite pre treatment in the past V/Q scan: Multiple large segmental perfusion defects seen within the right upper lobe and left lower lobe.IMPRESSION: Above findings are consistent with a high probability scan. Chest CT: Increased attenuation involving branches of the pulmonary artery, notably within the left lung. This finding in conjunction with the high probability perfusion study obtained same day is compatible with pulmonary emboli. Cardiomegaly without overt pulmonary edema. Trace right pleural effusion. Mild nonspecific subsegmental groundglass densities of the right upper lobe may be atelectatic or represent a mild infectious or inflammatory process Bilateral venous dopplers negative Orthospine surgeon Dr. Mena was ok with Anticoag for Acute PE but will need closer monitoring in hospital for a few days to ensure stability Was initially on IV heparin, now transitioned to Eliquis 10mg BID since 11/26/23 x 7 days then 5mg BID afterwards. Continue on Eliquis; Hospitalist group placed Eliquis in discharge medications and with instructions for taking a dose tonight. Acute catheter associated Cystitis postoperatively Ceftriaxone (started 11/24) for UA appeared infected on 11/23. 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 - treated at [facility] in [place] Per patient "treats me like a stroke when it happens" no problems since the blood patch/leaks have been patched with surgical glue HTN: Chronic Takes Bisoprolol at home Bisoprolol currently on hold due to orthostatic hypotension Soft BP mid to high 90's systolic; bilateral leg swelling; likely secondary to recent IV fluid bolus Avoid diuresis for now and monitor Hypothyroidism: Chronic Takes levothyroxine;continue Depression: Chronic Takes Celexa;continue Disposition: PCP: Fernando Buckner Code Status: Full code Diet: Heart Healthy diet VTE Prophylaxis: Eliquis Disposition Per Ortho, cleared for discharge once placement is arranged. Accepted at [facility] and planned transport for today at noon. It has been a pleasure being involved with Ms. Vick's case. Should there be any further assistance required from the Hospitalist Team, please do not hesitate to reach out. I spent a total of 52 minutes coordinating, documenting and providing care for this patient excluding time spent in performance of separately billed services Admission and Anticipated Discharge Date Admission Date: November 15, 2023 Subjective Pt lying in her hospital bed with complaints of R thigh pain. She is feeling improvement with the steroids that were started yesterday, but notes that the pain remains Denies fever, chills, dizziness SOB, CP, N/V today PT working with her in the room She reports feeling anxious about being discharged but is excited about the next step Discussed with Ortho and plans for DC today around noon. See below for CM working on Dispo to [facility] today Review of Systems Review of Systems: Neuro: (-) Falls, trauma, slurred speech (+) pain R thigh HEENT: (-) SOTELO, dizziness, dysphagia, visual or auditory changes CV: (-) CP, palpitations, swelling Resp: (-) SOB GI: (-) appetite changes, N/V/D, bowel changes : (-) urinary changes Skin: (-) rashes Psych: (-) anxiety, depression Physical Exam Physical Exam: Neuro: AAOx4, PERRLA, no aphagia, memory changes, CNII-XII grossly intact HEENT: head normocephalic, moist mucus membranes CV: S1/S2, (-) M/G/R, (-) edema, cap refill < 3 seconds Resp: Lungs decreased in all monteiro. On 2LNC GI: Abdomen S/NT/ND, Ax4 bowel sounds, (-) CVA tenderness Musculoskeletal: 5/5 B/L UE strength, 5/5 B/L LE strength. No gait disturbance Skin: (-) rashes , (-) erythema. Psych: euthymic mood Results & Data Results & Data Vital Signs (Past 12 Hours) Vital Signs Temp Pulse Pulse Resp BP Pulse Ox O2 Del Method 11/30/23 10:09 Nasal Cannula 11/30/23 08:38 63 11/30/23 08:11 36.5 C 75 18 128/72 94 Nasal Cannula 11/30/23 03:45 36.7 C 89 20 130/67 92 Nasal Cannula 11/29/23 23:55 36.5 C 89 20 126/62 92 Nasal Cannula 11/29/23 23:15 74 11/29/23 23:03 Nasal Cannula O2 Flow Rate 11/30/23 10:09 2 11/30/23 08:38 11/30/23 08:11 2 11/30/23 03:45 2 11/29/23 23:55 2 11/29/23 23:15 11/29/23 23:03 2
[2023-11-30 11:41] LABS: Hematocrit (blood only) 32.2 % (37.0-47.0); Hemoglobin 10.4 g/dl (12.0-16.0); Mean Corpuscular Hemoglobin 32.7 pg (25.0-34.0); Mean Corpuscular Hgb Conc 32.3 g/dL (32.0-36.0); Mean Corpuscular Volume 101.3 fL (80.0-100.0); Mean Platelet Volume 10.3 fL (9.4-12.4); Platelet Count 399 K/uL (130-400); RDW Standard Deviation 48.1 fL (36.4-46.3); Red Blood Count 3.18 M/uL (4.20-5.40); White Blood Count 13.34 K/ul (4.8-10.8)
[2023-11-30 11:50] LABS: BUN Creatinine Ratio 20.6 (10-20); Calcium 9.2 mg/dl (8.6-10.3); Creatinine Clr Calc Pharmacy 58.8 ml/min; Est GFR (African American) 68.1 ml/min; Est GFR (Non-African American) 58.8 ml/min; Potassium 4.4 mmol/L (3.5-5.1)
[2023-11-30] MEDS: LIDOCAINE 5% 1 PATCH TD SCH (13:07)
--- NOTE | 2023-11-30 14:00 | Discharge Summary ---
Date of Service November 30, 2023 Admission HPI Per Admitting Provider This is a 73-year-old female who presents chronic persistent back and bilaterally pain after failing since course of nonoperative care is here for surgical invention. Principal Diagnosis Lumbar spinal stenosis with neurogenic claudication Discharge Data Allergies Allergy/AdvReac Type Severity Reaction Status Date / Time Iodinated Contrast Media Allergy Severe Rash Verified 11/15/23 06:54 codeine AdvReac Severe N/V Verified 11/15/23 06:54 tramadol AdvReac Intermediate n/v Verified 11/15/23 06:54 Consultations 11/15/23 11:44 Consult Hospitalist Routine Procedures Performed Operation Date: 11/21/23 09:10 Actual Procedures p Incision and Drainage Lumbar(Not Applicable) - Jean-Pierre Mena DO Ordered Studies 11/15/23 07:00 FL lumbar spine 2-3V Routine 11/19/23 10:18 MR lumbar spine wo con Urgent 11/22/23 15:41 US venous doppler LE BI Stat 11/23/23 10:00 CT chest diagnostic wo con Routine Hospital Course (1) Neurogenic claudication due to lumbar spinal stenosis: Patient underwent multilevel lumbar decompression and fusion. Unfortunately postoperatively she developed a postop seroma requiring an I&D. She tolerated this well but then suffered with evidence of a pulmonary embolism requiring anticoagulation. She progressed steadily. DARRYL drain decreasing appropriately. She is struggling with some right trochanteric bursitis and IT band irritation but no neurologic deficit or radicular complaints. She is simply discharged to nursing facility for further rehab. Discharge orders instructions from the chart for further review. Total Time Total Time Spent Total Time Spent (In Minutes): 20 minutes Discharge Plan Discharge Items Patient Disposition: Transfer Detention Fac Reason For Visit: Lumbar Degenerative Disc Disease, Spinal Stenosis Discharge Diagnosis: Lumbar spinal stenosis with neurogenic claudication Activity: As commented below Non-emergency contact: Primary Care Provider Call non-emergency contact if: you have any medication questions Follow-up/Referrals: Devi Henry MD [Primary Care Provider] - Diet: Regular Addtl Attending Provider Instructions: ACTIVITY RECOMMENDATIONS: SELF CARE INSTRUCTIONS AFTER THORACIC/LUMBAR FUSIONS 1. You may walk to your tolerance. It is good exercise for your legs and back. Expect some back and intermittent leg aches and pains. 2. You may perform "counter-top" level activities (make a sandwich, franny with a project, etc.). 3. No bending or lifting of more than 10 pounds or back twisting of any nature (roll like a log when turning in bed). 4. You may ride in a car for 20-30 minutes at a time. No driving until after your first visit with your doctor. 5. Frequent changes of position and restricting sitting to 30 minutes at a time will help limit the amount of back spasms and stiffness you may experience. 6. You may discontinue the use of ambulatory aids (cane, crutches, etc.) once your strength and confidence allow. 7. You may installers mechanical the shower and let water strike your incision when you arrive home at least once daily. Do not take a tub bath, sit in a hot tub or go into a swimming pool until after your first recheck in the office. SPECIAL CARE INSTRUCTIONS: VERY IMPORTANT TO READ AND REVIEW A. Your surgical incision has been closed with a cosmetic suture under the skin that will dissolve in about 6 weeks. In 14 days, you can use a pair of clean scissors and cut the suture that is left outside of the skin at the ends of your incision. 1. The small skin tapes can be removed 7 days after surgery if they have not fallen off by that point. 2. You may keep the wound open to air as much as possible to promote healing after post-op day number 5 unless told otherwise by your doctor. 3. If you think the wound looks like it is becoming infected (redness or worsening drainage) and/or you are experiencing fever, chill or worsening back pain and muscle spasms, contact the office so that we may evaluate you as soon as possible. B. Complications are uncommon, but please contact us if you have any signs or symptoms of: 1. wound infection (fever higher than 102.5 degrees F, redness, separation of wound, drainage, or increasing pain from the incision) 2. blood clots in legs (pain, swelling, redness and warmth in legs) 3. urinary tract infection (fever higher than 102.5 degrees F, burning upon urination or increased frequency of urination) 4. nerve problems (inability to walk on your toes or heels, numbness, loss of bowel or bladder control) 5. any other symptoms that concern you C. Please call the office at if you have any concerns or questions about your operation or recovery. D. No smoking! Smoking drastically decreases the chance of a solid fusion. E. Do not take any anti-inflammatory medications (Indocin, Advil, Motrin, Aspirin, Naprosyn, etc.) as these may inhibit the chance of a solid fusion. Tylenol is okay to take for pain. MANAGING PAIN AFTER SPINAL SURGERY 1. Narcotic medication is intended for short-term use and will be provided for surgical pain. Surgical pain usually lasts for a period of 4-6 weeks. Narcotic medication includes Percocet, Vicodin, Darvocet, Tylenol #3 or Lortab. 2. Longer-term pain is more appropriately treated with non-narcotic medication such as Tylenol ES. 3. Muscle spasm is not appropriately treated with narcotics. Muscle relaxers such as Soma, Flexeril or Skelaxin can be used along with Tylenol ES. 4. Remember that we all live with some "aches and pains". This is not unusual or uncommon after an injury or as we get older. a. Back pain is expected and may include muscle spasms for 4 to 6 weeks after surgery. The pain should gradually improve. If the pain worsens for no apparent reason, please contact the office. b. Intermittent leg pain may also be experienced and should not be concerned about unless it worsens for no apparent reason. If so, please contact the office. 5. We will provide appropriate medication within the normal guidelines of their prescribed use. We will also be very cautious and aware of potential abuse and extended duration of patients' medication needs. a. Pain medications are for your comfort and to assist with sleep and rest so that the tissue can heal. They are not provided in order to return to normal activity and should not be used through the day. To do so or worsening pain at night can result from ongoing tissue damage and development of tolerance to the prescribed medicine. 6. Please allow 2-3 days to process refills. Prescriptions will not be mailed but must be picked up at the office. FOLLOW UP VISIT: Keep your scheduled follow-up appointment. Any questions, please call the office at . Addtl Elevator Inspector Provider Instructions: [facility] Hospitalist Service: You were on a Heparin drip for blood clots in your lungs. You have been switched to an oral blood thinner called Eliquis. 1. Please continue taking ELIQUIS 10 mg by mouth twice daily until 12/03/23 where you will continue taking Eliquis 5 mg by mouth twice daily. 2. You received your first dose this morning. Tonight, 11/30/23 you need to take Eliquis 10 mg by mouth. 3. You were started on a Lidocaine patch today for additional localized pain control. Please use a warm compress to your right thigh twice daily as needed. [facility] to have had the opportunity to take care of you alongside Dr. Mena. We wish you the best in your recovery. Pending Studies at Discharge: No Stand-Alone Forms: My [facility] Skilled Items Patient informed of condition?: Yes DNR: No Discharge Level of Care: Skilled Communicable Disease: No Discharge Prognosis: Improving Lines: None Urinary Catheter: No Medications and DC Order Prescriptions: New tramadol 50 mg tablet 50 mg PO Q6H PRN (Reason: pain, moderate) Qty: 30 0RF oxycodone 5 mg tablet 5 mg PO Q6H PRN (Reason: pain) Qty: 30 0RF Eliquis 5 mg Tablet 10 mg PO BID Qty: 5 0RF Rx Instructions: Please give Eliquis 10 mg tonight. Patient took AM dose at the hospital. Continue taking Eliquis 10 mg PO BID until 12/03/23 where dose will reduce to 5 mg PO BID. Eliquis 5 mg Tablet 5 mg PO BID Qty: 60 0RF lidocaine [Lidoderm] 5 % adhesive patch,medicated 1 patch topical DAILY Qty: 15 0RF Rx Instructions: leave on most painful area for up to 12 hrs Continued tramadol 50 mg Tablet 50 mg PO DAILY PRN (Reason: Severe Pain (Scale Score 7-10)) levothyroxine [Synthroid] 75 mcg Tablet 75 mcg PO QAM bisoprolol fumarate 5 mg Tablet 5 mg PO QAM citalopram [Celexa] 20 mg Tablet 20 mg PO QAM gabapentin 300 mg Capsule 300 mg PO QAM estradiol 2 mg Tablet 2 mg PO QAM fenofibrate 160 mg Tablet 160 mg PO QAM acetazolamide 250 mg Tablet 125 mg PO WK potassium chloride 10 mEq Tablet Extended Release 10 meq PO WK ondansetron HCl 8 mg Tablet 8 mg PO Q12H PRN (Reason: Nausea And Vomiting) aspirin 81 mg Capsule 81 mg PO QAM albuterol sulfate 1.25 mg/3 mL Solution For Nebulization 1.25 mg INHALATION QID PRN (Reason: sob) fluticasone propion-salmeterol [Advair Diskus] 250-50 mcg/dose Blister With Device 1 inh INHALATION BID PRN (Reason: sob/wheezing) albuterol sulfate 90 mcg/actuation Hfa Aerosol Inhaler 1 inh INHALATION QID PRN (Reason: sob) Discharge Orders: Discharge Order (Routine); Ordered 11/30/23 Ordered By: Jean-Pierre Mena Admission Data Admit Date/Time: 11/15/23 10:19 Attending Provider: Jean-Pierre Mena Admit Provider: Jean-Pierre Mena Primary Care Provider: Devi Henry Other Providers: Mary Carmen Sanchez; Ronn Durán Other Interventions: Discharge Summary Assessment (RN) Last Done: 11/30/23 13:24
[2023-12-03] MEDS ORDERED: APIXABAN 5 MG TABLET PO SCH (09:00)
== END 2023-11-30 14:53 | DRG 453 ==
LOC: ASU 06:04 → 3E 10:19 → 2W 11-23 14:12